=== PATIENT | female | born 1980 | race Hispanic/Latino ===

== ENCOUNTER 2018-07-05 16:16 | Emergency (ER) | payer OTHER ==
[2018-07-05] MEDS ORDERED: NA CHLORIDE 0.9% 1,000 ML ONE (16:52)
--- NOTE | 2018-07-05 17:03 | RAD REPORT ---
EXAM DESCRIPTION: CT - Head Brain Wo Cont - 07/05/2018 4:59 pm CLINICAL HISTORY: Dizziness, syncope COMPARISON: June 2016 TECHNIQUE: Axial 5 mm thick images of the head were obtained without IV contrast. All CT scans are performed using dose optimization technique as appropriate and may include automated exposure control or mA/KV adjustment according to patient size. FINDINGS: No intracranial hemorrhage, mass, edema or shift of mid-line structures. No acute infarcti on changes seen. No abnormal extra-axial fluid collections. Ventricles are normal. Mastoid air cells and visualized portions of the paranasal sinuses are clear. No acute bony findings. No significant change from comparison. IMPRESSION: Negative non-contrast CT head examination.
--- NOTE | 2018-07-05 17:22 | RAD REPORT ---
EXAM DESCRIPTION: RAD - Chest Single View - 07/05/2018 5:16 pm CLINICAL HISTORY: Weakness, dizziness, shortness of breath COMPARISON: June 2016 TECHNIQUE: AP portable chest image was obtained 1714 hours . FINDINGS: Lungs are clear. Heart and vasculature are normal. No measurable pleural effusion and no p neumothorax. No gross bony abnormality seen. No acute aortic findings suspected. IMPRESSION: No acute cardiopulmonary process. No significant interval change.
[2018-07-05 17:24] LABS: Absolute Lymphocytes (CBC) 1.3 K/uL (0.7-4.9); Absolute Monocytes 0.2 K/uL (0.1-1.3); Absolute Neutrophil 2.2 K/uL (1.8-8.0); Eosinophils % 2.8 % (0-4.4); Hematocrit 33.7 % (36.0-45.0); MCH 28.9 pg (27.0-35.0); MCV 84.1 fL (80-100); MPV 10.1 fL (7.6-11.3); Monocytes % 6.4 % (3.3-12.3); RBC Red Blood Cell Count 4.01 M/uL (3.86-4.86)
[2018-07-05 17:33] LABS: Urine Blood 3+ (NEG); Urine Glucose 2+ (NEG); Urine Protein 1+ (NEG)
[2018-07-05 17:46] LABS: Albumin 3.3 g/dL (3.4-5.0); Alkaline Phosphatase 129 U/L (45-117); BUN Blood Urea Nitrogen 24 mg/dL (7-18); Bicarbonate 28 mmol/L (21-32); Bilirubin Direct < 0.1 mg/dL (0-0.2); Bilirubin Total 0.4 mg/dL (0.2-1.0); Glucose Level 265 mg/dL (74-106); Magnesium 1.7 mg/dL (1.8-2.4); Protein, Total 6.5 g/dL (6.4-8.2); Sodium Level 140 mmol/L (136-145)
[2018-07-05 17:58] LABS: ALT/SGPT 365 U/L (12-78); AST/SGOT 361 U/L (15-37)
[2018-07-05] MEDS ORDERED: PROMETHAZINE 25 MG/ML VIAL ONE (19:29)
--- NOTE | 2018-07-05 19:38 | RAD REPORT ---
EXAM DESCRIPTION: CT - Abdomen Pelvis W Contrast - 07/05/2018 7:09 pm CLINICAL HISTORY: Abdominal pain with nausea. And vomiting COMPARISON: February 2017 TECHNIQUE: Computed axial tomography of the abdomen pelvis was obtained. 100 cc Isovue-300 was admin istered intravenously. Oral contrast was not requested which limits evaluation of bowel. All CT scans are performed using dose optimization technique as appropriate and may include automated exposure control or mA/KV adjustment according to patient size. FINDINGS: The liver, spleen, pancreas, adrenal and kidneys appear unremarkable. The gallbladder has been removed. There is no evidence of diverticulitis. An abnormal appendix is not seen. A tiny umbilical hernia contains fat. An adnexal mass is not seen. A 13 millimeter partial calcified splenic arterial aneurysm is seen. It contains small amount of thro mbus. A 12 millimeter additional splenic arterial aneurysm is seen A small hiatal hernia is present IMPRESSION: Two splenic arterial aneurysms No acute abnormality is displayed
--- NOTE | 2018-07-05 19:59 | EDPHYS ---
Physician Documentation [facility] Name: Fabi Diana Age: 37 yrs Sex: Female : 1980 Arrival Date: 07/05/2018 Time: 16:18 Bed 18 Private MD: Chaparro Dean E ED Physician Julien Stafford HPI: 07/05 17:14 This 37 yrs old Female presents to ER via Ambulatory with complaints of jr8 Dizziness, Vomiting. 17:14 The patient presents with dizziness, lightheadedness. Onset: The symptoms/episode jr8 began/occurred acutely, yesterday. Context: occurred at home. Modifying factors: The symptoms are alleviated by nothing, the symptoms are aggravated by standing up, changing position. Associated signs and symptoms: Pertinent positives: nausea. Severity of symptoms: At their worst the symptoms were moderate in the emergency department the symptoms have improved mildly. Patient's baseline: Neuro: alert and fully oriented, Motor: no deficits, Ambulation: walks without assistance, Speech: normal. The patient has not experienced similar symptoms in the past. The patient has not recently seen a physician. 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 - Social history:: Smoking status: Patient/guardian denies using tobacco. - Ebola Screening: : Patient negative for fever greater than or equal to 101.5 degrees Fahrenheit, and additional compatible Ebola Virus Disease symptoms Patient denies exposure to infectious person Patient denies travel to an Ebola-affected area in the 21 days before illness onset No symptoms or risks identified at this time. ROS: 17:14 Eyes: Negative for injury, pain, redness, and discharge, ENT: Negative for injury, jr8 pain, and discharge, Neck: Negative for injury, pain, and swelling, Cardiovascular: Negative for chest pain, palpitations, and edema, Respiratory: Negative for shortness of breath, cough, wheezing, and pleuritic chest pain, Abdomen/GI: Negative for abdominal pain, diarrhea, and constipation. Positive for nausea and vomiting Back: Negative for injury and pain, MS/Extremity: Negative for injury and deformity, Skin: Negative for injury, rash, and discoloration. 17:14 Neuro: Positive for dizziness, Negative for altered mental status, gait disturbance, headache, hearing loss, loss of consciousness, numbness, seizure activity, speech changes, syncope, near syncope, tingling, tinnitus, tremor, visual changes, weakness. Exam: 17:14 Eyes: Pupils equal round and reactive to light, extra-ocular motions intact. Lids and jr8 lashes normal. Conjunctiva and sclera are non-icteric and not injected. Cornea within normal limits. Periorbital areas with no swelling, redness, or edema. ENT: Nares patent. No nasal discharge, no septal abnormalities noted. Tympanic membranes are normal and external auditory canals are clear. Oropharynx with no redness, swelling, or masses, exudates, or evidence of obstruction, uvula midline. Mucous membranes moist. Neck: Trachea midline, no thyromegaly or masses palpated, and no cervical lymphadenopathy. Supple, full range of motion without nuchal rigidity, or vertebral point tenderness. No Meningismus. Cardiovascular: Regular rate and rhythm with a normal S1 and S2. No gallops, murmurs, or rubs. Normal PMI, no JVD. No pulse deficits. Respiratory: Lungs have equal breath sounds bilaterally, clear to auscultation and percussion. No rales, rhonchi or wheezes noted. No increased work of breathing, no retractions or nasal flaring. Abdomen/GI: Soft, non-tender, with normal bowel sounds. No distension or tympany. No guarding or rebound. No evidence of tenderness throughout. Back: No spinal tenderness. No costovertebral tenderness. Full range of motion. Skin: Warm, dry with normal turgor. Normal color with no rashes, no lesions, and no evidence of cellulitis. MS/ Extremity: Pulses equal, no cyanosis. Neurovascular intact. Full, normal range of motion. Neuro: Awake and alert, GCS 15, oriented to person, place, time, and situation. Cranial nerves II-XII grossly intact. Motor strength 5/5 in all extremities. Sensory grossly intact. Cerebellar exam normal. Normal gait. Vital Signs: 16:28 BP 144 / 86; Pulse 91; Resp 20; Temp 98.2; Pulse Ox 98% on R/A; Weight 90.72 kg; Height aj 5 ft. 3 in. (160.02 cm); 17:07 BP 148 / 93; Pulse 90; Resp 18; Pulse Ox 99% on R/A; hj 18:23 BP 143 / 90; Pulse 89; Resp 18; Pulse Ox 98% on R/A; hj 19:05 BP 148 / 87; Pulse 73; Resp 16 S; Pulse Ox 98% on R/A; jd3 20:17 BP 145 / 86; Pulse 90; Resp 18 S; Pulse Ox 100% on R/A; jd3 16:28 Body Mass Index 35.43 (90.72 kg, 160.02 cm) aj MDM: 16:26 Patient medically screened. [facility] 19:55 Data reviewed: vital signs, nurses notes, lab test result(s), radiologic studies, [facility] scan, and as a result, I will discharge patient. Data interpreted: Pulse oximetry: on room air is 98 %. Interpretation: normal. 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 ED course: Patient denies abdominal pain or discomfort. Elevated LFT's noted without bilirubin elevation. Recommended GI f/u for further evaluation of this. Some of her medications can cause liver disease. Suggested she f/u with PCP as well. Patient would follow up. . 19:59 Special discussion: I discussed with the patient the need to follow-up with the [facility] PCP/specialist for the noted incidental finding on X-ray/CT scanning. 07/05 16:38 Order name: Basic Metabolic Panel; Complete Time: 18:19 [facility] 07/05 16:38 Order name: CBC with Diff; Complete Time: 17:47 [facility] 07/05 16:38 Order name: LFT's; Complete Time: 18:19 07/05 16:38 Order name: Magnesium; Complete Time: 18:19 07/05 17:00 Order name: Urine Dipstick--Ancillary (enter results); Complete Time: 17:47 07/05 17:00 Order name: Urine --Ancillary (enter results); Complete Time: 17:47 bd 07/05 16:38 Order name: XRAY Chest (1 view); Complete Time: 17:24 07/05 16:39 Order name: CT Head Brain wo Cont; Complete Time: 17:06 07/05 18:21 Order name: CT Abd/Pelvis - W/Contrast; Complete Time: 19:42 07/05 18:29 Order name: AMMONIA; Complete Time: 19:23 07/05 18:29 Order name: ETOH Level; Complete Time: 19:23 07/05 16:38 Order name: EKG; Complete Time: 16:39 07/05 16:38 Order name: Cardiac monitoring; Complete Time: 16:39 07/05 16:38 Order name: EKG - Nurse/Tech; Complete Time: 16:50 07/05 16:38 Order name: IV Saline Lock; Complete Time: 17:09 07/05 16:38 Order name: Labs collected and sent; Complete Time: 17:09 07/05 16:38 Order name: O2 Per Protocol; Complete Time: 16:39 07/05 16:39 Order name: O2 Sat Monitoring; Complete Time: 16:39 07/05 16:39 Order name: Urine Dipstick-Ancillary (obtain specimen); Complete Time: 17:10 Administered Medications: 17:09 Drug: NS 0.9% 1000 ml Route: IV; Rate: 1000 ml; Site: right antecubital; 19:00 Follow up: Response: No adverse reaction; IV Status: Completed infusion; IV Intake: jd3 1000ml ; 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 19:30 Drug: Promethazine 12.5 mg Route: IVP; Site: right antecubital; jd3 20:18 Follow up: Response: No adverse reaction jd3 Point of Care Testing: Blood Glucose: 16:29 Blood Glucose: 274 mg/dL; hj Ranges: Critical Glucose Levels:Adult <50 mg/dl or >400 mg/dl <40 mg/dl or >180 mg/dl Disposition: 07/05/18 19:59 Discharged to Home. Impression: Dizziness, Elevated liver function tests. - Condition is Stable. - Discharge Instructions: Benign Positional Vertigo, Dizziness. - Prescriptions for Meclizine 25 mg Oral Tablet - take 1 tablet by ORAL route every 8 hours As needed; 30 tablet. Zofran 4 mg Oral Tablet - take 1 tablet by ORAL route every 12 hours As needed; 20 tablet. - Medication Reconciliation Form, Thank You Letter, Antibiotic Education, Prescription Opioid Use, SBAR form form. - Work release form (07/05/18 20:39). ms - Follow up: Chaparro Dean MD; When: 1 - 2 days; Reason: Recheck today's complaints, Continuance of care, Re-evaluation by your physician. Follow up: Jauna Boyd MD; When: 2 - 3 days; Reason: Recheck today's complaints, Continuance of care, Re-evaluation by your physician. - Problem is new. - Symptoms have improved. Addendum: 07/07/2018 07:06 Co-signature as Attending Physician, Julien Stafford MD. r n Signatures: Dispatcher [employer] Areli Bailey RN RN aj Nieto, Roman, MD MD rn Roszak, Josh, PA PA jr8 Brian Mcmahon RN RN hj Davies, Jonathon, RN RN jd3 Solis, Maria ms Corrections: (The following items were deleted from the chart) 07/05 18:32 18:21 Abdomen Limited+US.RAD.BRZ ordered. [facility] 19:59 19:59 07/05/2018 19:59 Discharged to Home. Impression: Dizziness; Elvated liver jr8 function tests. Condition is Stable. Forms are SBAR form, Medication Reconciliation Form, Thank You Letter, Antibiotic Education, Prescription Opioid Use. Follow up: Chaparro Dean; When: 1 - 2 days; Reason: Recheck today's complaints, Continuance of care, Re-evaluation by your physician. Follow up: Juana Boyd; When: 2 - 3 days; Reason: Recheck today's complaints, Continuance of care, Re-evaluation by your physician. Problem is new. Symptoms have improved. jr8 20:19 19:59 07/05/2018 19:59 Discharged to Home. Impression: Dizziness; Elevated liver jd3 function tests. Condition is Stable. Forms are SBAR form, Medication Reconciliation Form, Thank You Letter, Antibiotic Education, Prescription Opioid Use. Follow up: Chaparro Dean; When: 1 - 2 days; Reason: Recheck today's complaints, Continuance of care, Re-evaluation by your physician. Follow up: Juana Boyd; When: 2 - 3 days; Reason: Recheck today's complaints, Continuance of care, Re-evaluation by your physician. Problem is new. Symptoms have improved. jr8
--- NOTE | 2018-07-05 19:59 | ER ---
Nurse's Notes [facility] Name: Fabi Diana Age: 37 yrs Sex: Female : 1980 Arrival Date: 07/05/2018 Time: 16:18 Bed 18 Private MD: Chaparro Dean E Diagnosis: Dizziness;Elevated liver function tests Presentation: 07/05 16:24 Presenting complaint: Patient states: Dizziness and lightheadedness with N/V since last aj night. Ambulated wit steady gait, denies pain. Transition of care: patient was not received from another setting of care. Onset of symptoms was July 05, 2018. Risk Assessment: Do you want to hurt yourself or someone else? Patient reports no desire to harm self or others. Initial Sepsis Screen: Does the patient meet any 2 criteria? No. Patient's initial sepsis screen is negative. Does the patient have a suspected source of infection? No. Patient's initial sepsis screen is negative. Care prior to arrival: None. 16:24 Method Of Arrival: Ambulatory 16:24 Acuity: BAYLEE 3 aj Triage Assessment: 16:26 General: Appears in no apparent distress. comfortable, Behavior is calm, cooperative. aj Pain: Denies pain. Neuro: Level of Consciousness is awake, alert, obeys commands, Oriented to person, place, time, situation, Appropriate for age Reports dizziness. Respiratory: Airway is patent Respiratory effort is even, unlabored, Respiratory pattern is regular, symmetrical. GI: Reports nausea, vomiting. Derm: Skin is intact, is healthy with good turgor, Skin is flushed. 16:27 General: Appears in no apparent distress. uncomfortable, Behavior is calm, cooperative, hj appropriate for age. Pain: Denies pain. GI: Reports nausea, vomiting. 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 - Social history:: Smoking status: Patient/guardian denies using tobacco. - Ebola Screening: : Patient negative for fever greater than or equal to 101.5 degrees Fahrenheit, and additional compatible Ebola Virus Disease symptoms Patient denies exposure to infectious person Patient denies travel to an Ebola-affected area in the 21 days before illness onset No symptoms or risks identified at this time. Screenin:27 Abuse screen: Denies threats or abuse. Denies injuries from another. Nutritional hj screening: No deficits noted. Tuberculosis screening: No symptoms or risk factors identified. Fall Risk None identified. Assessment: 16:30 Reassessment: see triage for assessment;. hj 17:07 Reassessment: Patient and/or family updated on plan of care and expected duration. Pain hj level reassessed. Patient is alert, oriented x 3, equal unlabored respirations, skin warm/dry/pink. awaiting results and POC;. 18:23 Reassessment: Patient and/or family updated on plan of care and expected duration. Pain hj level reassessed. Patient is alert, oriented x 3, equal unlabored respirations, skin warm/dry/pink. awaiting POC;l. 19:04 Reassessment: Patient appears in no apparent distress at this time. No changes from jd3 previously documented assessment. Patient and/or family updated on plan of care and expected duration. Pain level reassessed. Patient is alert, oriented x 3, equal unlabored respirations, skin warm/dry/pink. Neuro: Reports dizziness. GI: Reports nausea. 20:16 Reassessment: Patient appears in no apparent distress at this time. Patient and/or jd3 family updated on plan of care and expected duration. Pain level reassessed. Patient is alert, oriented x 3, equal unlabored respirations, skin warm/dry/pink. Vital Signs: 16:28 BP 144 / 86; Pulse 91; Resp 20; Temp 98.2; Pulse Ox 98% on R/A; Weight 90.72 kg; Height aj 5 ft. 3 in. (160.02 cm); 17:07 BP 148 / 93; Pulse 90; Resp 18; Pulse Ox 99% on R/A; hj 18:23 BP 143 / 90; Pulse 89; Resp 18; Pulse Ox 98% on R/A; hj 19:05 BP 148 / 87; Pulse 73; Resp 16 S; Pulse Ox 98% on R/A; jd3 20:17 BP 145 / 86; Pulse 90; Resp 18 S; Pulse Ox 100% on R/A; jd3 16:28 Body Mass Index 35.43 (90.72 kg, 160.02 cm) ED Course: 16:18 Patient arrived in ED. mr 16:19 Chaparro Dean MD is Private Physician. mr 16:25 Brian Mcmahon, JEAN PAUL is Primary Nurse. hj 16:25 Triage completed. aj 16:26 Tobias Schmitt PA is PHCP. jr8 16:26 Julien Stafford MD is Attending Physician. jr8 16:27 Arm band placed on right wrist. hj 16:27 Patient has correct armband on for positive identification. Placed in gown. Bed in low hj position. Call light in reach. Side rails up X 1. Adult w/ patient. 16:[address] 2 16:[address] completed. Patient tolerated procedure well. Patient moved back from CT. vm2 16:59 CT Head Brain wo Cont In Process Unspecified. EDMS 17:10 Initial lab(s) drawn, by ED staff, sent to lab. Urine collected:. Inserted saline lock: hj 20 gauge in right antecubital area, using aseptic technique. ,using aseptic technique. Kathrin Ng RN Blood collected. 17:12 EKG done, by geotechnical engineer. 3 17:12 EKG done, by geotechnical engineer. reviewed by Tobias JUAREZ. 3 17:14 X-ray completed. Portable x-ray completed in exam room. Patient tolerated procedure ml well. 17:16 XRAY Chest (1 view) In Process Unspecified. EDMS 18:[address] via wheelchair. vr 18:39 ETOH Level Sent. hj 18:39 AMMONIA Sent. hj 18:43 ETOH Level Sent. hj 19:03 Report given to JEAN PAUL denise. hj 19:04 Primary Nurse role handed off by Brian Mcmahon, JEAN PAUL jd3 19:04 Robert Reynolds RN is Primary Nurse. jd3 19:09 CT completed. Patient moved back from CT. nj 19:10 CT Abd/Pelvis - W/Contrast In Process Unspecified. EDMS 19:58 Chaparro Dean MD is Referral Physician. jr8 19:58 Juana Boyd MD is Referral Physician. jr8 20:16 No provider procedures requiring assistance completed. IV discontinued, intact, jd3 bleeding controlled, No redness/swelling at site. Pressure dressing applied. Administered Medications: 17:09 Drug: NS 0.9% 1000 ml Route: IV; Rate: 1000 ml; Site: right antecubital; 19:00 Follow up: Response: No adverse reaction; IV Status: Completed infusion; IV Intake: jd3 1000ml ; infussion was complete upon car shifter 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 19:30 Drug: Promethazine 12.5 mg Route: IVP; Site: right antecubital; jd3 20:18 Follow up: Response: No adverse reaction jd3 Point of Care Testing: Blood Glucose: 16:29 Blood Glucose: 274 mg/dL; Ranges: Intake: 19:00 IV: 1000ml; Total: 1000ml. jd3 Outcome: 19:59 Discharge ordered by MD. jr8 20:16 Discharged to home ambulatory, with family. jd3 20:16 Condition: stable 20:16 Discharge instructions given to patient, family, Instructed on discharge instructions, follow up and referral plans. medication usage, Demonstrated understanding of instructions, follow-up care, medications, Prescriptions given X 2. 20:19 Patient left the ED. jd3 Signatures: Dispatcher [employer] EDMS Areli Jain, RN Mali Rodriguez, Luci Jean Josh, PA PA jr8 Brian Mcmahon RN RN hj Jordan, Nathan nj McGuire, Victoria [facility] Robert Reynolds RN RN jd3 Montes, Shakira 3 Corrections: (The following items were deleted from the chart) 16:28 16:24 Presenting complaint: Patient states: Dizziness and "lighthededness" since last aj night. Ambulated wit steady gait, denies pain aj
[2018-07-05 20:35] VITALS: TEMP 98.2
[2018-07-05 20:39] VITALS: BP 145/86; O2SAT 100
--- NOTE | 2018-07-05 21:21 | EKG ---
Test Date: 2018-07-05 Test Time: 16:49:47 Siphoner: PARTHA MEASUREMENT RESULTS: Intervals: Rate: 84 SD: 138 QRSD: 88 QT: 364 QTc: 430 [place]: P: 17 SD: 138 QRS: 7 T: 6 INTERPRETIVE STATEMENTS: Normal sinus rhythm Normal ECG Compared to ECG 07/21/2016 12:52:08 Sinus tachycardia no longer present T-wave abnormality no longer present Possible ischemia no longer present Electronically Signed On 07-05-18 21:20:07 CDT by Teodoro Wiggins
== END 2018-07-05 20:19 | disposition home or self-care (01) ==
LOC: ER 16:16
DX: R42 Dizziness and giddiness (principal); R79.89 Other specified abnormal findings of blood chemistry; E11.9 Type 2 diabetes mellitus without complications; Z79.84 Long term (current) use of oral hypoglycemic drugs; I10 Essential (primary) hypertension
CPT/HCPCS: 36415; 70450; 71045; 74177; 80048; 80076; 80320; 81003; 81025; 82140; 82962; 83735; 85025; 93005; 96361; 96374; 99285; J2550; J7030; Q9967

== ENCOUNTER 2019-06-05 23:29 | Emergency (ER) | payer OTHER, SELFPAY ==
[2019-06-06 00:20] LABS: Albumin 3.5 g/dL (3.4-5.0); Bilirubin Total 0.2 mg/dL (0.2-1.0); Potassium 3.8 mmol/L (3.5-5.1); Protein, Total 7.4 g/dL (6.4-8.2)
--- NOTE | 2019-06-06 00:34 | ER ---
Nurse's Notes [facility] Name: Fabi Diana Age: 38 yrs Sex: Female : 1980 Arrival Date: 06/05/2019 Time: 23:31 Bed 15 Private MD: Diagnosis: Dental caries Presentation: 06/05 23:32 Presenting complaint: EMS states: EMS reports pt is complaining of abdominal pain, pt ea reports she took 13 to 14 ibuprofen between 1600 and 1900 and then 8 ibuprofen at 1955. Pt reports she was trying to control the toothache. Reports she started vomiting about an hour ago and started having upper abdominal pain. Transition of care: patient was not received from another setting of care. Onset of symptoms was June 05, 2019. Risk Assessment: Do you want to hurt yourself or someone else? Patient reports no desire to harm self or others. Initial Sepsis Screen: Does the patient meet any 2 criteria? No. Patient's initial sepsis screen is negative. Does the patient have a suspected source of infection? No. Patient's initial sepsis screen is negative. Care prior to arrival: None. 23:32 Method Of Arrival: EMS: [facility] ea 23:32 Acuity: BAYLEE 3 ea Triage Assessment: 23:41 General: Appears uncomfortable, Behavior is calm, cooperative, appropriate for age. ea Pain: Complains of pain in left upper quadrant. EENT: Reports pain in mouth. Historical: - Allergies: 23:40 NKDA; ea - Home Meds: 23:40 metformin 500 mg Oral tr24 1 tab once daily [Active]; lisinopril-hydrochlorothiazide ea 10-12.5 mg Oral tab 1 tab once daily [Active]; glipizide 10 mg Oral tab 1 tab once daily [Active]; gabapentin Oral [Active]; - PMHx: 23:40 Hypertension; Diabetes - NIDDM; ea - PSHx: 23:40 Tubal ligation; Cholecystectomy; ea - Immunization history:: Adult Immunizations up to date. - Social history:: Smoking status: Patient/guardian denies using tobacco, Patient/guardian denies using alcohol, street drugs, The patient lives with family. - Ebola Screening: : No symptoms or risks identified at this time. - Family history:: not pertinent. Screenin:38 Abuse screen: Denies threats or abuse. Nutritional screening: No deficits noted. ea Tuberculosis screening: No symptoms or risk factors identified. Fall Risk None identified. Assessment: 23:42 General: Appears uncomfortable, Behavior is appropriate for age. Pain: Complains of ea pain in mouth and left upper quadrant. Neuro: Level of Consciousness is awake, alert, obeys commands, Oriented to person, place, time, situation. Cardiovascular: Patient's skin is warm and dry. Respiratory: Airway is patent Respiratory effort is even, unlabored, Respiratory pattern is regular, symmetrical. GI: Reports upper abdominal pain. Derm: Skin is pink, warm \T\ dry. 23:50 Reassessment: Poison control contacted. Poison control reports mild GI upset is to be ea expected, symptomatic supportive care can be given such as Zofran and fluids if needed, reports pt may have mild toxicity. 06/06 00:15 Reassessment: Patient and/or family updated on plan of care and expected duration. Pain ea level reassessed. Patient is alert, oriented x 3, equal unlabored respirations, skin warm/dry/pink. 00:49 Reassessment: Patient and/or family updated on plan of care and expected duration. Pain ea level reassessed. Patient is alert, oriented x 3, equal unlabored respirations, skin warm/dry/pink. Pt complaining of tooth pain, provider notified, medication administered, pt tolerated well. Discharge instruction given to patient, verbalized the understanding of instruction. Pt left ED with family, verbalized the understanding of isntruction. Vital Signs: 06/05 23:37 BP 171 / 105; Pulse 98; Resp 18; Temp 98.8; Pulse Ox 99% on R/A; Weight 81.65 kg; ea Height 5 ft. 5 in. (165.10 cm); 06/06 00:45 BP 160 / 90; Pulse 97; Resp 18; Temp 98.7; Pulse Ox 100% ; ea 06/05 23:37 Body Mass Index 29.95 (81.65 kg, 165.10 cm) ea ED Course: 06/05 23:31 Patient arrived in ED. am2 23:32 Anika Pollock RN is Primary Nurse. ea 23:33 Sonia Contreras MD is Attending Physician. ma2 23:36 Triage completed. ea 23:37 Arm band placed on right wrist. Patient placed in an exam room, on a stretcher, on ea pulse oximetry. 23:38 Patient has correct armband on for positive identification. Placed in gown. Bed in low ea position. Call light in reach. Side rails up X2. Adult w/ patient. 23:41 Inserted saline lock: 20 gauge in right antecubital area, using aseptic technique. jb5 Blood collected. 07 00:51 No provider procedures requiring assistance completed. IV discontinued, intact, ea bleeding controlled, No redness/swelling at site. Pressure dressing applied. Administered Medications: 00:46 Drug: [place] (7.5 mg-325 mg) 1 tabs Route: PO; ea 00:47 Follow up: Response: Medication administered at discharge. ea Outcome: 00:34 Discharge ordered by . ma2 00:51 Discharged to home ambulatory, with family. ea 00:51 Condition: stable 00:51 Discharge instructions given to patient, Instructed on discharge instructions, follow up and referral plans. medication usage, Demonstrated understanding of instructions, follow-up care, medications, Prescriptions given X 2. 00:53 Patient left the ED. ea Signatures: Angela Morillo jb5 Areli Alvarez am2 Anika Pollock RN RN ea Alzahri, Mohammad, MD MD ma2 Corrections: (The following items were deleted from the chart) 00:39 07 23:50 Reassessment: Poison control contacted. Poison control reports mild GI ea upset is to be expected, symptomatic supportive care can be give such as zofran and fluids, reports pt may have mild toxicity. ea
--- NOTE | 2019-06-06 00:34 | EDPHYS ---
Physician Documentation [facility] Name: Fabi Diana Age: 38 yrs Sex: Female : 1980 Arrival Date: 06/05/2019 Time: 23:31 Bed 15 Private MD: ED Physician Sonia Contreras HPI: 06/06 00:32 This 38 yrs old Female presents to ER via EMS with complaints of Toothache, ma2 Nausea. 00:32 Onset: The symptoms/episode began/occurred gradually, 1 day(s) ago. Duration: The ma2 symptoms are continuous. Associated signs and symptoms: Pertinent negatives: dysphagia, nausea, redness in area. Severity of symptoms: At their worst the symptoms were mild, in the emergency department the symptoms are unchanged. The patient has not experienced similar symptoms in the past. took 5 motrin 200 mg each . Historical: - Allergies: 06/05 23:40 NKDA; ea - Home Meds: 23:40 metformin 500 mg Oral tr24 1 tab once daily [Active]; lisinopril-hydrochlorothiazide ea 10-12.5 mg Oral tab 1 tab once daily [Active]; glipizide 10 mg Oral tab 1 tab once daily [Active]; gabapentin Oral [Active]; - PMHx: 23:40 Hypertension; Diabetes - NIDDM; ea - PSHx: 23:40 Tubal ligation; Cholecystectomy; ea - Immunization history:: Adult Immunizations up to date. - Social history:: Smoking status: Patient/guardian denies using tobacco, Patient/guardian denies using alcohol, street drugs, The patient lives with family. - Ebola Screening: : No symptoms or risks identified at this time. - Family history:: not pertinent. ROS: 06/06 00:32 Constitutional: Negative for fever, chills, and weight loss. ma2 All other systems are negative. Exam: 00:32 Constitutional: This is a well developed, well nourished patient who is awake, alert, ma2 and in no acute distress. Head/Face: Normocephalic, atraumatic. Eyes: Pupils equal round and reactive to light, extra-ocular motions intact. Lids and lashes normal. Conjunctiva and sclera are non-icteric and not injected. Cornea within normal limits. Periorbital areas with no swelling, redness, or edema. ENT: Nares patent. No nasal discharge, no septal abnormalities noted. Tympanic membranes are normal and external auditory canals are clear. Oropharynx with no redness, swelling, or masses, exudates, or evidence of obstruction, uvula midline. Mucous membranes moist. Neck: Trachea midline, no thyromegaly or masses palpated, and no cervical lymphadenopathy. Supple, full range of motion without nuchal rigidity, or vertebral point tenderness. No Meningismus. Chest/axilla: Normal chest wall appearance and motion. Nontender with no deformity. No lesions are appreciated. Cardiovascular: Regular rate and rhythm with a normal S1 and S2. No gallops, murmurs, or rubs. Normal PMI, no JVD. No pulse deficits. Respiratory: Lungs have equal breath sounds bilaterally, clear to auscultation and percussion. No rales, rhonchi or wheezes noted. No increased work of breathing, no retractions or nasal flaring. Abdomen/GI: Soft, non-tender, with normal bowel sounds. No distension or tympany. No guarding or rebound. No evidence of tenderness throughout. Back: No spinal tenderness. No costovertebral tenderness. Full range of motion. MS/ Extremity: Pulses equal, no cyanosis. Neurovascular intact. Full, normal range of motion. Neuro: Awake and alert, GCS 15, oriented to person, place, time, and situation. Cranial nerves II-XII grossly intact. Motor strength 5/5 in all extremities. Sensory grossly intact. Cerebellar exam normal. Normal gait. Vital Signs: 06/05 23:37 BP 171 / 105; Pulse 98; Resp 18; Temp 98.8; Pulse Ox 99% on R/A; Weight 81.65 kg; ea Height 5 ft. 5 in. (165.10 cm); 06/06 00:45 BP 160 / 90; Pulse 97; Resp 18; Temp 98.7; Pulse Ox 100% ; ea 06/05 23:37 Body Mass Index 29.95 (81.65 kg, 165.10 cm) ea MDM: 06/05 23:33 Patient medically screened. ma2 06/06 00:32 Differential diagnosis: dental caries, gingivitis, dental abscess, aphthous ulcers. ma2 Data reviewed: vital signs, nurses notes. Counseling: I had a detailed discussion with the patient and/or guardian regarding: the historical points, exam findings, and any diagnostic results supporting the discharge/admit diagnosis, the presence of at least one elevated blood pressure reading (>120/80) during this emergency department visit, the need for outpatient follow up. Response to treatment: the patient's symptoms have markedly improved after treatment. 06/05 23:47 Order name: CMP; Complete Time: 00:32 ma2 Administered Medications: 00:46 Drug: [place] (7.5 mg-325 mg) 1 tabs Route: PO; ea 00:47 Follow up: Response: Medication administered at discharge. ea Disposition: 06/06/19 00:34 Discharged to Home. Impression: Dental caries. - Condition is Stable. - Discharge Instructions: Dental Pain. - Prescriptions for Augmentin 875- 125 mg Oral Tablet - take 1 tablet by ORAL route every 12 hours for 10 days; 20 tablet. Zofran 4 mg Oral Tablet - take 1 tablet by ORAL route every 12 hours As needed; 20 tablet. - Medication Reconciliation Form, Thank You Letter, Antibiotic Education, Prescription Opioid Use form. - Follow up: Private Physician; When: Tomorrow; Reason: Continuance of care. Signatures: Dispatcher [employer] Anika Freeman RN RN ea Alzahri, Mohammad, MD MD ma2 Corrections: (The following items were deleted from the chart) 00:53 00:34 06/06/2019 00:34 Discharged to Home. Impression: Dental caries. Condition is ea Stable. Prescriptions for Augmentin 875-125 mg Oral Tablet - take 1 tablet by ORAL route every 12 hours for 10 days; 20 tablet, Zofran 4 mg Oral Tablet - take 1 tablet by ORAL route every 12 hours As needed; 20 tablet. and Forms are Medication Reconciliation Form, Thank You Letter, Antibiotic Education, Prescription Opioid Use. Follow up: Private Physician; When: Tomorrow; Reason: Continuance of care. ma2
[2019-06-06] MEDS ORDERED: HYDROCODONE/APAP 7.5/325 MG TAB ONE (00:54)
[2019-06-06 01:09] VITALS: BP 160/90; TEMP 98.7; O2SAT 100
== END 2019-06-06 00:53 | disposition home or self-care (01) ==
LOC: ER 23:29
DX: K02.9 Dental caries, unspecified (principal); I10 Essential (primary) hypertension; E11.9 Type 2 diabetes mellitus without complications
CPT/HCPCS: 36415; 80053; 99284

== ENCOUNTER 2019-07-15 19:32 | Emergency (ER) | payer SELFPAY ==
--- NOTE | 2019-07-15 19:58 | ER ---
Nurse's Notes [facility] Name: Fabi Diana Age: 38 yrs Sex: Female : 1980 Arrival Date: 07/15/2019 Time: 19:35 Bed 11 Private MD: Diagnosis: Cellulitis of right lower limb Presentation: 07/15 19:40 Presenting complaint: Patient states: right foot pain since noon yesterday. pt with ak1 redness and pain to arch of right foot. Transition of care: patient was not received from another setting of care. Onset of symptoms is unknown. Risk Assessment: Do you want to hurt yourself or someone else? Patient reports no desire to harm self or others. Initial Sepsis Screen: Does the patient meet any 2 criteria? No. Patient's initial sepsis screen is negative. Does the patient have a suspected source of infection? No. Patient's initial sepsis screen is negative. Care prior to arrival: None. 19:40 Method Of Arrival: Ambulatory ak1 19:40 Acuity: BAYLEE 4 ak1 Triage Assessment: 19:41 General: Appears in no apparent distress. Behavior is calm, cooperative. 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 - Social history:: Smoking status: Patient/guardian denies using tobacco. - Ebola Screening: : No symptoms or risks identified at this time. Screenin:42 Abuse screen: Denies threats or abuse. Denies injuries from another. Nutritional ak1 screening: No deficits noted. Tuberculosis screening: No symptoms or risk factors identified. Fall Risk None identified. Assessment: 19:51 General: Appears in no apparent distress. Behavior is appropriate for age. Pain: lp1 Complains of pain in instep of right foot. Neuro: Level of Consciousness is awake, alert, obeys commands. Cardiovascular: Patient's skin is warm and dry. Respiratory: No deficits noted. GI: No deficits noted. : No deficits noted. EENT: No deficits noted. Derm: redness noted to instep of right foot; hot to touch, tender on palpation. Musculoskeletal: Circulation, motion, and sensation intact. Vital Signs: 19:39 BP 119 / 80; Pulse 100; Resp 20; Temp 97.4; Pulse Ox 98% on R/A; Weight 97.52 kg (R); ak1 Height 5 ft. 3 in. (160.02 cm) (R); Pain 8/10; 19:39 Body Mass Index 38.09 (97.52 kg, 160.02 cm) ak1 ED Course: 19:35 Patient arrived in ED. ag3 19:39 Arm band placed on Patient placed in an exam room, on a stretcher, Patient notified of ak1 wait time. 19:41 Triage completed. ak1 19:42 Patient has correct armband on for positive identification. Bed in low position. Call ak1 light in reach. Side rails up X 1. 19:45 Cyril Cartwright MD is Attending Physician. 19:45 Shazia Kincaid RN is Primary Nurse. lp1 19:52 No provider procedures requiring assistance completed. Patient did not have IV access lp1 during this emergency room visit. Administered Medications: 20:08 Drug: LevaQUIN 500 mg Route: PO; lp1 20:08 Follow up: Response: Medication administered at discharge. lp1 Outcome: 19:58 Discharge ordered by . 20:08 Discharged to home ambulatory. lp1 20:08 Condition: good 20:08 Discharge instructions given to patient, Instructed on discharge instructions, follow up and referral plans. medication usage, Demonstrated understanding of instructions, follow-up care, medications, Prescriptions given X 1. 20:09 Patient left the ED. lp1 Signatures: Shazia Kincaid RN RN 1 Alem Blankenship RN RN ak Cyril Cartwright MD MD Vivi Ta 3
--- NOTE | 2019-07-15 19:59 | EDPHYS ---
Physician Documentation [facility] Name: Fabi Diana Age: 38 yrs Sex: Female : 1980 Arrival Date: 07/15/2019 Time: 19:35 Bed 11 Private MD: ED Physician Cyril Cartwright HPI: 07/15 19:53 This 38 yrs old Female presents to ER via Ambulatory with complaints of MOI gs ON BOTTOM OF FOOT. 19:53 The patient presents with cellulitis of the arch of right foot. Description: The gs affected area is small, confluent, warm, tender. Onset: The symptoms/episode began/occurred yesterday. Possible cause(s): unknown. Associated signs and symptoms: Pertinent negatives: fever. Severity of symptoms: in the emergency department the symptoms are unchanged. The patient has not experienced similar symptoms in the past. 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 - Social history:: Smoking status: Patient/guardian denies using tobacco. - Ebola Screening: : No symptoms or risks identified at this time. ROS: 19:53 All other systems are negative. gs Exam: 19:53 Head/Face: Normocephalic, atraumatic. Eyes: Pupils equal round and reactive to light, gs extra-ocular motions intact. Lids and lashes normal. Conjunctiva and sclera are non-icteric and not injected. Cornea within normal limits. Periorbital areas with no swelling, redness, or edema. ENT: Nares patent. No nasal discharge, no septal abnormalities noted. Tympanic membranes are normal and external auditory canals are clear. Oropharynx with no redness, swelling, or masses, exudates, or evidence of obstruction, uvula midline. Mucous membranes moist. Neck: Trachea midline, no thyromegaly or masses palpated, and no cervical lymphadenopathy. Supple, full range of motion without nuchal rigidity, or vertebral point tenderness. No Meningismus. Chest/axilla: Normal chest wall appearance and motion. Nontender with no deformity. No lesions are appreciated. Cardiovascular: Regular rate and rhythm with a normal S1 and S2. No gallops, murmurs, or rubs. Normal PMI, no JVD. No pulse deficits. Respiratory: Lungs have equal breath sounds bilaterally, clear to auscultation and percussion. No rales, rhonchi or wheezes noted. No increased work of breathing, no retractions or nasal flaring. Abdomen/GI: Soft, non-tender, with normal bowel sounds. No distension or tympany. No guarding or rebound. No evidence of tenderness throughout. Back: No spinal tenderness. No costovertebral tenderness. Full range of motion. Neuro: Awake and alert, GCS 15, oriented to person, place, time, and situation. Cranial nerves II-XII grossly intact. Motor strength 5/5 in all extremities. Sensory grossly intact. Cerebellar exam normal. Normal gait. 19:53 Constitutional: The patient appears alert, awake. 19:53 Musculoskeletal/extremity: ROM: no acute changes, Circulation is intact in all extremities. 19:53 Skin: cellulitis, that is mild, on the arch of right foot, 2x3 cm. Vital Signs: 19:39 BP 119 / 80; Pulse 100; Resp 20; Temp 97.4; Pulse Ox 98% on R/A; Weight 97.52 kg (R); ak1 Height 5 ft. 3 in. (160.02 cm) (R); Pain 8/10; 19:39 Body Mass Index 38.09 (97.52 kg, 160.02 cm) ak1 MDM: 19:51 Patient medically screened. 19:53 Data reviewed: vital signs, nurses notes. Counseling: I had a detailed discussion with gs the patient and/or guardian regarding: the historical points, exam findings, and any diagnostic results supporting the discharge/admit diagnosis, the need for outpatient follow up. Response to treatment: There is no appreciated change of the patient's symptoms at this time. Administered Medications: 20:08 Drug: LevaQUIN 500 mg Route: PO; lp1 20:08 Follow up: Response: Medication administered at discharge. lp1 Disposition: 07/15/19 19:58 Discharged to Home. Impression: Cellulitis of right lower limb. - Condition is Stable. - Discharge Instructions: Cellulitis, Adult. - Prescriptions for Levaquin 500 mg Oral Tablet - take 1 tablet by ORAL route once daily for 7 days; 7 tablet. - Medication Reconciliation Form, Thank You Letter, Antibiotic Education, Prescription Opioid Use form. - Follow up: Private Physician; When: 2 - 3 days; Reason: Re-evaluation by your physician. Signatures: Shazia Kincaid RN RN lp1 Alem Blankenship RN RN ak1 Cyril Cartwright MD MD Corrections: (The following items were deleted from the chart) 20:09 19:58 07/15/2019 19:58 Discharged to Home. Impression: Cellulitis of right lower limb. lp1 Condition is Stable. Forms are Medication Reconciliation Form, Thank You Letter, Antibiotic Education, Prescription Opioid Use. Follow up: Private Physician; When: 2 - 3 days; Reason: Re-evaluation by your physician. gs
[2019-07-15] MEDS ORDERED: levoFLOXacin 250 MG TAB ONE (20:03)
[2019-07-15 20:21] VITALS: BP 119/80; TEMP 97.4; O2SAT 98
== END 2019-07-15 20:09 | disposition home or self-care (01) ==
LOC: ER 19:32
DX: L03.115 Cellulitis of right lower limb (principal); I10 Essential (primary) hypertension; E11.9 Type 2 diabetes mellitus without complications
CPT/HCPCS: 99283

== ENCOUNTER 2020-03-15 18:43 | Emergency (ER) | payer SELFPAY ==
[2020-03-15] MEDS ORDERED: IBUPROFEN 400 MG TAB ONE (19:06)
[2020-03-15] MEDS ORDERED: NA CHLORIDE 0.9% 1,000 ML ONE (19:36)
[2020-03-15 19:50] LABS: Absolute Lymphocytes (CBC) 1.9 K/uL (0.7-4.9); Basophils % 1.1 % (0-1.3); Hematocrit 34.1 % (36.0-45.0); Lymphocytes % 29.9 % (15.3-44.8); MPV 10.2 fL (7.6-11.3)
[2020-03-15 20:23] LABS: Potassium 3.8 mmol/L (3.5-5.1); Sodium Level 133 mmol/L (136-145)
[2020-03-15 20:24] LABS: ALT/SGPT 23 U/L (12-78); AST/SGOT 10 U/L (15-37); Alkaline Phosphatase 230 U/L (45-117); BUN Blood Urea Nitrogen 16 mg/dL (7-18); Bicarbonate 26 mmol/L (21-32)
[2020-03-15 20:25] LABS: Albumin 3.3 g/dL (3.4-5.0); Bilirubin Direct < 0.1 mg/dL (0-0.2); Bilirubin Total 0.2 mg/dL (0.2-1.0); Protein, Total 7.3 g/dL (6.4-8.2)
[2020-03-15 20:28] LABS: Glucose Level 461 mg/dL (74-106)
[2020-03-15 20:47] LABS: Lipase 90 U/L (73-393)
--- NOTE | 2020-03-15 23:19 | ER ---
Nurse's Notes [facility] Name: Fabi Diana Age: 39 yrs Sex: Female : 1980 Arrival Date: 03/15/2020 Time: 18:46 Bed 17 Private MD: Diagnosis: Hyperglycemia, unspecified Presentation: 03/15 19:05 Chief complaint: Patient states: is diabetic, but has not been taking her tresiba since iw , states there is no good reason why she doesn't take it she just forgets or is too lazy to take it. pt has been tired and sleepy today, took 3 doses of lyrica 75 mg last night because she ran out of her gabapentin and cymbalta last week. Coronavirus screen: Proceed with normal triage. Patient denies a cough. Patient denies shortness of breath or difficulty breathing. Patient denies measured and/or subjective temperature greater than 100.4F prior to today's visit. Patient denies travel on a cruise ship or to a country the [facility] currently lists as an affected area. Patient denies contact with known and/or suspected case of COVID-19. Ebola Screen: Patient negative for fever greater than or equal to 101.5 degrees Fahrenheit, and additional compatible Ebola Virus Disease symptoms Patient denies exposure to infectious person. Patient denies travel to an Ebola-affected area in the 21 days before illness onset. No symptoms or risks identified at this time. Initial Sepsis Screen: Does the patient meet any 2 criteria? No. Patient's initial sepsis screen is negative. Does the patient have a suspected source of infection? No. Patient's initial sepsis screen is negative. Risk Assessment: Do you want to hurt yourself or someone else? Patient reports no desire to harm self or others. Onset of symptoms was March 15, 2020. 19:05 Method Of Arrival: Ambulatory iw 19:05 Acuity: BAYLEE 3 iw Historical: - Allergies: 19:12 NKDA; iw - Home Meds: 19:12 metformin 500 mg Oral tr24 1 tab once daily [Active]; lisinopril-hydrochlorothiazide iw 10-12.5 mg Oral tab 1 tab once daily [Active]; glipizide 10 mg Oral tab 1 tab once daily [Active]; gabapentin Oral [Active]; - PMHx: 19:12 Diabetes - NIDDM; Hypertension; iw - PSHx: 19:12 Tubal ligation; Cholecystectomy; iw - Immunization history:: Adult Immunizations up to date. - Social history:: Smoking status: Patient denies any tobacco usage or history of. Screenin:35 Abuse screen: Denies threats or abuse. Denies injuries from another. Nutritional rv screening: No deficits noted. Tuberculosis screening: No symptoms or risk factors identified. Fall Risk None identified. Assessment: 19:35 General: Appears in no apparent distress. ill, Behavior is calm, cooperative. Pain: rv Denies pain. Neuro: Level of Consciousness is awake, alert, obeys commands, Oriented to person, place, time, situation. Cardiovascular: Patient's skin is warm and dry. Respiratory: Airway is patent Respiratory effort is even, unlabored. Derm: Skin is intact. 20:00 Reassessment: Patient appears in no apparent distress at this time. Patient and/or ls4 family updated on plan of care and expected duration. Pain level reassessed. Patient is alert, oriented x 3, equal unlabored respirations, skin warm/dry/pink. 21:00 Reassessment: Patient appears in no apparent distress at this time. Patient and/or ls4 family updated on plan of care and expected duration. Pain level reassessed. Patient is alert, oriented x 3, equal unlabored respirations, skin warm/dry/pink. 22:02 Reassessment: Patient appears in no apparent distress at this time. Patient and/or ls4 family updated on plan of care and expected duration. Pain level reassessed. Patient is alert, oriented x 3, equal unlabored respirations, skin warm/dry/pink. 23:36 Reassessment: Patient appears in no apparent distress at this time. Patient and/or ls4 family updated on plan of care and expected duration. Pain level reassessed. Patient is alert, oriented x 3, equal unlabored respirations, skin warm/dry/pink. Vital Signs: 19:05 Pulse 96; Resp 16 S; Temp 98.2; Pulse Ox 100% on R/A; Weight 95.25 kg; Height 5 ft. 3 iw in. (160.02 cm); Pain 0/10; 20:28 BP 144 / 92; Pulse 92; Resp 14; Pulse Ox 99% ; Pain 3/10; ls4 21:30 BP 150 / 88; Pulse 89; Resp 14; Pulse Ox 99% ; Pain 3/10; ls4 22:30 BP 144 / 96; Pulse 79; Resp 14; Temp 98.1(O); Pulse Ox 99% on R/A; Pain 0/10; ls4 22:30 BP 148 / 89; Pulse 88; Resp 16; Pulse Ox 99% on R/A; Pain 0/10; ls4 19:05 Body Mass Index 37.20 (95.25 kg, 160.02 cm) ED Course: 18:46 Patient arrived in ED. ag5 18:57 Delta Carter PA is PHCP. [facility] 18:57 El Magallon MD is Attending Physician. [facility] 19:11 Triage completed. iw 19:12 Arm band placed on. iw 19:25 Nury Suarez, JEAN PAUL is Primary Nurse. ls4 19:35 Patient has correct armband on for positive identification. Bed in low position. Call rv light in reach. Side rails up X 1. Pulse ox on. NIBP on. 19:35 Inserted saline lock: 20 gauge in right antecubital area, using aseptic technique. rv ,using aseptic technique. by [facility] Blood collected. 19:35 Initial lab(s) drawn, by ED staff, sent to lab. rv 19:43 Lipase Sent. ds4 19:43 Basic Metabolic Panel Sent. ds4 19:43 CBC with Diff Sent. ds4 19:43 Creatinine for Radiology Sent. ds4 19:43 Hepatic Function Sent. ds4 20:29 Notified Nurse Practitioner and/or Physician [employer] Laboratory Technician of a critical lab result(s), ls4 glucose 461 to Delta JUAREZ. 22:01 No provider procedures requiring assistance completed. ls4 23:47 intact, bleeding controlled, No redness/swelling at site. Pressure dressing applied. ls4 Administered Medications: 19:35 Drug: NS 0.9% 1000 ml Route: IV; Rate: 1 bolus; Site: right antecubital; rv 20:35 Follow up: IV Status: Completed infusion; IV Intake: 1000ml ls4 21:00 Drug: NS 0.9% 1000 ml Route: IV; Rate: 1 bolus; Site: right antecubital; ls4 22:00 Follow up: IV Status: Completed infusion; IV Intake: 1000ml ls4 21:05 Not Given (Other Intervention Used): Insulin Regular Human 10 units IVP once ls4 Intake: 20:35 IV: 1000ml; Total: 1000ml. ls4 22:00 IV: 1000ml; Total: 2000ml. ls4 Outcome: 23:19 Discharge ordered by MD. brewster 23:41 Discharged to home ambulatory. ls4 23:41 Condition: good 23:41 Discharge instructions given to patient, family, Instructed on discharge instructions, follow up and referral plans. medication usage, safety practices, Demonstrated understanding of instructions, follow-up care, medications, Prescriptions given X 1. 04 00:19 Patient left the ED. ls4 Signatures: Delta Carter PA PA jmm Williams, Irene, RN RN Van Slaughter ds4 Akhil Dobson RN RN Nury Pineda RN RN ls4 Reuben Chavira ag5
--- NOTE | 2020-03-15 23:19 | EDPHYS ---
Physician Documentation [facility] Name: Fabi Diana Age: 39 yrs Sex: Female : 1980 Arrival Date: 03/15/2020 Time: 18:46 Bed 17 Private MD: ED Physician El Magallon HPI: 03/15 19:39 This 39 yrs old Female presents to ER via Ambulatory with complaints of High jmm Blood Sugar. 19:39 The patient or guardian reports hyperglycemia. Onset: The symptoms/episode jmm began/occurred gradually, 1 day(s) ago. Associated signs and symptoms: Pertinent positives: weakness. This is a 39 year old female with a history of dm that presents to the ED with complaints of weakness and fatigue along with elevated BGL. Patient admits to not taking insulin since September of 2019. Denies abdominal pain, vomiting or shortness of breath. . Historical: - Allergies: 19:12 NKDA; iw - Home Meds: 19:12 metformin 500 mg Oral tr24 1 tab once daily [Active]; lisinopril-hydrochlorothiazide iw 10-12.5 mg Oral tab 1 tab once daily [Active]; glipizide 10 mg Oral tab 1 tab once daily [Active]; gabapentin Oral [Active]; - PMHx: 19:12 Diabetes - NIDDM; Hypertension; iw - PSHx: 19:12 Tubal ligation; Cholecystectomy; iw - Immunization history:: Adult Immunizations up to date. - Social history:: Smoking status: Patient denies any tobacco usage or history of. ROS: 19:39 Constitutional: Negative for fever, chills, and weight loss, Cardiovascular: Negative jmm for chest pain, palpitations, and edema, Respiratory: Negative for shortness of breath, cough, wheezing, and pleuritic chest pain. 19:39 Abdomen/GI: Negative for nausea and vomiting, diarrhea. 19:39 All other systems are negative. Exam: 19:39 Constitutional: This is a well developed, well nourished patient who is awake, alert, jmm and in no acute distress. Head/Face: atraumatic. Eyes: EOMI, no conjunctival erythema appreciated ENT: Moist Mucus Membranes Neck: Trachea midline, Supple Chest/axilla: Normal chest wall appearance and motion. Cardiovascular: Regular rate and rhythm. No edema appreciated Respiratory: Normal respirations, no respiratory distress appreciated Abdomen/GI: Non distended, soft Back: Normal ROM MS/ Extremity: Moves all extremities, no obvious deformities appreciated, no edema noted to the lower extremities Neuro: Awake and alert, normal gait Psych: Behavior is normal, Mood is normal, Patient is cooperative and pleasant Vital Signs: 19:05 Pulse 96; Resp 16 S; Temp 98.2; Pulse Ox 100% on R/A; Weight 95.25 kg; Height 5 ft. 3 iw in. (160.02 cm); Pain 0/10; 20:28 BP 144 / 92; Pulse 92; Resp 14; Pulse Ox 99% ; Pain 3/10; ls4 21:30 BP 150 / 88; Pulse 89; Resp 14; Pulse Ox 99% ; Pain 3/10; ls4 22:30 BP 144 / 96; Pulse 79; Resp 14; Temp 98.1(O); Pulse Ox 99% on R/A; Pain 0/10; ls4 22:30 BP 148 / 89; Pulse 88; Resp 16; Pulse Ox 99% on R/A; Pain 0/10; ls4 19:05 Body Mass Index 37.20 (95.25 kg, 160.02 cm) iw MDM: 19:31 Patient medically screened. ney 23:15 Data reviewed: vital signs, nurses notes. Counseling: I had a detailed discussion with ney the patient and/or guardian regarding: the historical points, exam findings, and any diagnostic results supporting the discharge/admit diagnosis, lab results, the need for outpatient follow up, to return to the emergency department if symptoms worsen or persist or if there are any questions or concerns that arise at home. ED course: Patient is alert and non toxic in appearance in the ED. Patient tolerates PO in the ED. Patient advised to closely follow up with pcp and otherwise given strict return precautions. Patient understood and agrees with the plan of care. . 03/15 19: Order name: Glucose, Ancillary Testing; Complete Time: 19:22 [facility]MA 03/15 19:22 Order name: Basic Metabolic Panel; Complete Time: 20:50 [facility] 03/15 19:22 Order name: CBC with Diff; Complete Time: 20:03 [facility] 03/15 19:22 Order name: Creatinine for Radiology; Complete Time: 20:14 [facility] 04/19 19:22 Order name: Hepatic Function; Complete Time: 20:50 [facility] 03/15 19:22 Order name: Lipase; Complete Time: 20:50 [facility] 03/15 19:22 Order name: IV Saline Lock; Complete Time: 19:27 [facility] 03/15 19:22 Order name: Labs collected and sent; Complete Time: 19:27 [facility] 03/15 20:55 Order name: Glucose, Ancillary Testing; Complete Time: 20:57 [facility]MA 03/15 22:06 Order name: Glucose, Ancillary Testing; Complete Time: 22:09 [facility]MA 03/15 22:49 Order name: Glucose, Ancillary Testing; Complete Time: 23:11 EDMS Administered Medications: 19:35 Drug: NS 0.9% 1000 ml Route: IV; Rate: 1 bolus; Site: right antecubital; rv 20:35 Follow up: IV Status: Completed infusion; IV Intake: 1000ml ls4 21:00 Drug: NS 0.9% 1000 ml Route: IV; Rate: 1 bolus; Site: right antecubital; ls4 22:00 Follow up: IV Status: Completed infusion; IV Intake: 1000ml ls4 21:05 Not Given (Other Intervention Used): Insulin Regular Human 10 units IVP once ls4 Disposition: 03/15/20 23:19 Discharged to Home. Impression: Hyperglycemia, unspecified. - Condition is Stable. - Discharge Instructions: Hyperglycemia. - Prescriptions for Metformin 500 mg Oral Tablet - take 1 tablet by ORAL route once daily for 7 days Then take 1 tablet with morning meals AND evening meals; 21 tablet. - Medication Reconciliation Form, Thank You Letter, Antibiotic Education, Prescription Opioid Use form. - Follow up: Private Physician; When: 2 - 3 days; Reason: Recheck today's complaints, Continuance of care, Re-evaluation by your physician. Addendum: 03/17/2020 10:05 Co-signature as Attending Physician, El Magallon MD I agree with the assessment and t w4 plan of care. Signatures: Dispatcher [employer] Delta Greene PA PA jmm Williams, Irene, RN El Kunz MD MD tw4 Akhil Dobson RN RN rv Nury Suarez RN RN ls4 Corrections: (The following items were deleted from the chart) 03/16 00:19 03/15 23:19 03/15/2020 23:19 Discharged to Home. Impression: Hyperglycemia, ls4 unspecified. Condition is Stable. Forms are Medication Reconciliation Form, Thank You Letter, Antibiotic Education, Prescription Opioid Use. Follow up: Private Physician; When: 2 - 3 days; Reason: Recheck today's complaints, Continuance of care, Re-evaluation by your physician. ney
[2020-03-16 00:28] VITALS: O2SAT 99
[2020-03-16 00:32] VITALS: BP 148/89; TEMP 98.1
== END 2020-03-16 00:19 | disposition home or self-care (01) ==
LOC: ER 18:43
DX: E11.65 Type 2 diabetes mellitus with hyperglycemia (principal); I10 Essential (primary) hypertension
CPT/HCPCS: 36415; 80048; 80076; 82947; 83690; 85025; J7030

== ENCOUNTER 2021-06-21 18:35 | Emergency (ER) | payer SELFPAY ==
[2021-06-21] MEDS ORDERED: METOCLOPRAMIDE 10 MG/2mL INJ ONE (22:52)
[2021-06-21] MEDS ORDERED: NA CHLORIDE 0.9% 1,000 ML ONE (22:53)
[2021-06-21 22:59] LABS: Absolute Lymphocytes (CBC) 1.5 K/uL (0.7-4.9); Basophils % 1.1 % (0-1.3); Hematocrit 35.5 % (36.0-45.0); Lymphocytes % 16.4 % (15.3-44.8); MPV 9.3 fL (7.6-11.3); RBC Red Blood Cell Count 4.18 M/uL (3.86-4.86)
[2021-06-21 23:10] LABS: Albumin 3.4 g/dL (3.4-5.0); Bilirubin Direct 0.1 mg/dL (0-0.2); Bilirubin Total 0.3 mg/dL (0.2-1.0); Potassium 3.5 mmol/L (3.5-5.1); Protein, Total 7.5 g/dL (6.4-8.2)
[2021-06-22] MEDS ORDERED: PROMETHAZINE INJ 25 MG/ML AMP ONE (01:39)
[2021-06-22 02:39] LABS: Urine Appearance Cloudy (Clear); Urine Bilirubin Negative (Negative); Urine Blood 3+ (Negative); Urine Color Yellow (Yellow); Urine Glucose Negative (Negative); Urine Protein 2+ (Negative); Urine Specific Gravity 1.025 (1.005-1.030); Urine Urobilinogen 0.2 mg/dL (0.2-1.0)
[2021-06-22 02:40] LABS: Urine Microscopic Reflex ORDER UMIC
[2021-06-22 02:55] LABS: Urine Bacteria LOADED /HPF (<20)
[2021-06-22 02:56] LABS: Urine RBC NONE SEEN /HPF (NONE SEEN)
--- NOTE | 2021-06-22 12:13 | RAD REPORT ---
EXAM DESCRIPTION: CT - Abdomen Pelvis W Contrast - 06/22/2021 6:29 am CLINICAL HISTORY: The patient is 40 years old and is Female; right sided abdominal pain TECHNIQUE: Axial computed tomography images of the abdomen and pelvis with intravenous contrast. S agittal and coronal reformatted images were created and reviewed. This CT exam was performed using one or more of the following dose reduction techniques: automated exposure control, adjustment of t he mA and/or kV according to patient size, and/or use of iterative reconstruction technique. COMPARISON: No relevant prior studies available. FINDINGS: Lung bases: Unremarkable. No mass. No consolidation. ABDOMEN: Liver: Unremarkable. No mass. Gallbladder and bile ducts: Gallbladder is surgically absent. No ductal dilation. Pancreas: Pancreas is atrophic. No ductal dilation. Spleen: Unremarkable. No splenomegaly. Adrenals: Unremarkable. No mass. Kidneys and ureters: Unremarkable. No solid mass. No hydronephrosis. Stomach and bowel: Unremarkable. No obstruction. No mucosal thickening. PELVIS: Appendix: No findings to suggest acute appendicitis. Bladder: There is diffuse bladder wall thickening, but evaluation is limited by non-distention. Reproductive: Suggestion of mild bilateral hydrosalpinx. ABDOMEN and PELVIS: Intraperitoneal space: Unremarkable. No free air. No significant fluid collection. Bones/joints: Disc bulge at L5-S1. No acute fracture. No dislocation. Soft tissues: Unremarkable. Vasculature: Unremarkable. No abdominal aortic aneurysm. Lymph nodes: Unremarkable. No enlarged lymph nodes. IMPRESSION: 1. Gallbladder is surgically absent. 2. Pancreas is atrophic. 3. There is diffuse bladder wall thickening, but evaluation is limited by non-distention. Correla te with any concern for cystitis. 4. Suggestion of mild bilateral hydrosalpinx. Electronically signed by: Kodak Muñiz MD 06/22/2021 12:16 AM CDT Due to temporary technical issues with the PACS/Fluency reporting system, reports are being signed by the in house radiologists without review as a courtesy to insure prompt reporting. The interpreting radiologist is fully responsible for the content of the report.
--- NOTE | 2021-06-22 17:48 | EDPHYS ---
Physician Documentation [facility] Name: Fabi Diana Age: 40 yrs Sex: Female : 1980 Arrival Date: 06/21/2021 Time: 18:58 Bed 15 Private MD: Chaparro Dean E ED Physician Lazarus Zaidi HPI: 06/21 20:30 This 40 yrs old Female presents to ER via Ambulatory with complaints of jmm Vomiting/Diarrhea. 20:30 The patient presents to the emergency department with nausea, vomiting, diarrhea, jmm abdominal pain. Onset: The symptoms/episode began/occurred gradually, 1 week(s) ago. Possible causes: unknown. The symptoms are aggravated by nothing. The symptoms are alleviated by nothing. Associated signs and symptoms: Pertinent positives: abdominal pain, diarrhea, Pertinent negatives: fever, GI bleeding. This is a 39-year-old female with history of diabetes mellitus, hypertension the presents the ER with complaints of generalized abdominal ache, vomiting, diarrhea. Patient localizes abdominal pain mainly to the right side. Denies recent travel, denies infectious exposure, denies cough, denies shortness of breath, denies recent antibiotic use.. GRAPHICS EDITOR: 20:13 LMP 06/11/2021 kg Historical: - Allergies: 20:09 NKDA; kg - Home Meds: 20:09 gabapentin Oral [Active]; glipizide 10 mg Oral tab 1 tab once daily [Active]; kg lisinopril-hydrochlorothiazide 10-12.5 mg Oral tab 1 tab once daily [Active]; metformin 500 mg Oral tr24 1 tab once daily [Active]; Tresiba FlexTouch U-100 100 unit/mL (3 mL) subcutaneous inpn [Active]; Cymbalta 30 mg oral cpDR 1 cap once daily [Active]; - PMHx: 20:09 Diabetes - NIDDM; Hypertension; Neuropathy; kg - PSHx: 20:11 tubal ligation; Cholecystectomy; kg - Immunization history:: Adult Immunizations up to date, Client reports having NOT received the Covid vaccine. - Social history:: Smoking status: Patient denies any tobacco usage or history of. ROS: 20:30 Constitutional: Positive for body aches. jmm 20:30 Respiratory: Positive for cough. 20:30 Abdomen/GI: Positive for abdominal pain, nausea and vomiting, diarrhea. 20:30 All other systems are negative. Exam: 20:30 Constitutional: This is a well developed, well nourished patient who is awake, alert, jmm and in no acute distress. Head/Face: atraumatic. Eyes: EOMI, no conjunctival erythema appreciated ENT: Moist Mucus Membranes Neck: Trachea midline, Supple Chest/axilla: Normal chest wall appearance and motion. Cardiovascular: Regular rate and rhythm. No edema appreciated Respiratory: Normal respirations, no respiratory distress appreciated 20:30 Back: Normal ROM Skin: General appearance color normal MS/ Extremity: Moves all extremities, no obvious deformities appreciated, no edema noted to the lower extremities Neuro: Awake and alert, normal gait Psych: Behavior is normal, Mood is normal, Patient is cooperative and pleasant 20:30 Abdomen/GI: Inspection: obese Bowel sounds: normal, Palpation: soft, mild abdominal tenderness, in the right upper quadrant and right lower quadrant. Vital Signs: 20:07 BP 138 / 82; Pulse 101; Resp 20; Temp 97.1; Pulse Ox 97% on R/A; Weight 100.7 kg; kg Height 5 ft. 3 in. (160.02 cm); Pain 6/10; 06/22 02:23 BP 130 / 74; Pulse 85; Resp 18; Pulse Ox 98% on R/A; ak2 06/21 20:07 Body Mass Index 39.33 (100.70 kg, 160.02 cm) kg MDM: 06/21 21:55 Patient medically screened. [facility] 06/22 01:01 Data reviewed: vital signs, nurses notes. Counseling: I had a detailed discussion with ney the patient and/or guardian regarding: the historical points, exam findings, and any diagnostic results supporting the discharge/admit diagnosis, lab results, radiology results. 01:02 ED course: Patient states nausea is mildly improved, patient is able to tolerate p.o. ney discussed CT findings with the patient stated that she had a tubal ligation after having 6 children and does not plan on having anymore. I did discuss the mild hydrosalpinx findings and the need to follow-up with GRAPHICS EDITOR for further evaluation. CT also revealed inflammation in the bladder, will treat patient with oral antibiotics. Patient otherwise given strict return precautions. Patient understood and agrees plan of care.. 06/21 20:30 Order name: Glucose, Ancillary Testing; Complete Time: 22:01 [facility] 06/21 22:21 Order name: Basic Metabolic Panel [facility] 06/21 22:21 Order name: CBC with Diff; Complete Time: 23:46 [facility] 06/21 22:21 Order name: Hepatic Function [facility] 06/21 22:21 Order name: Lipase; Complete Time: 23:46 [facility] 06/21 22:22 Order name: Basic Metabolic Panel; Complete Time: 23:46 [facility] 06/21 22:22 Order name: Liver (Hepatic) Function; Complete Time: 23:46 [facility] 06/21 22:27 Order name: CT Abd/Pelvis - IV Contrast Only [facility] 06/22 02:38 Order name: Urinalysis [facility] 06/21 22:21 Order name: Urine Dipstick-Ancillary (obtain specimen) [facility] 06/21 22:21 Order name: Urine Test (obtain specimen) [facility] 06/21 22:21 Order name: IV Saline Lock [facility] 06/21 22:21 Order name: Labs collected and sent [facility] Administered Medications: 06/21 22:33 Drug: Reglan (metoCLOPramide) 20 mg Route: IVP; Site: left antecubital; ak2 22:34 Drug: NS 0.9% 1000 ml Route: IV; Rate: 1 bolus; Site: left antecubital; ak2 06/22 01:20 Drug: NS 0.9% 1000 ml Route: IV; Rate: 1 bolus; Site: left antecubital; ak2 01:20 Drug: Promethazine 12.5 mg Route: IVP; Site: left antecubital; ak2 Disposition: 07:05 Co-signature as Attending Physician, Lazarus Zaidi MD I agree with the assessment and guillaume plan of care. Disposition Summary: 06/22/21 01:04 Discharge Ordered Location: Home [facility] Condition: Stable [facility] Diagnosis - Vomiting jmm - Diarrhea, unspecified [facility] Followup: [facility] - With: Private Physician - When: 2 - 3 days - Reason: Recheck today's complaints, Continuance of care, Re-evaluation by your physician Discharge Instructions: - Discharge Summary Sheet [facility] - Food Choices to Help Relieve Diarrhea, Adult jmm - Vomiting, Adult m Forms: - Medication Reconciliation Form [facility] - Thank You Letter [facility] - Antibiotic Education jmm - Prescription Opioid Use [facility] Prescriptions: - promethazine 12.5 mg Rectal suppository - insert 1 suppository by RECTAL route every 6 hours; 12 suppository; Refills: 0, [facility] Product Selection Permitted - Cipro 500 mg Oral Tablet - take 1 tablet by ORAL route every 12 hours for 7 days; 14 tablet; Refills: 0, [facility] Product Selection Permitted Signatures: Dispatcher [employer] Lazarus Lackey MD MD cha Mickail, Joel, PA PA [place] RN RN Syed Ruiz2
--- NOTE | 2021-06-22 17:48 | ER ---
Nurse's Notes [facility] Name: Fabi Diana Age: 40 yrs Sex: Female : 1980 Arrival Date: 06/21/2021 Time: 18:58 Bed 15 Private MD: Chaparro Dean E Diagnosis: Vomiting;Diarrhea, unspecified Presentation: 06/21 20:07 Chief complaint: Patient states: Nausea, Vomiting, Diarrhea, increased blood sugar x 1 kg wk. Coronavirus screen: Client denies travel out of the [place] in the last 14 days. At this time, unable to obtain information related to travel outside the [place] At this time, the client does not indicate any symptoms associated with coronavirus-19. Ebola Screen: Patient negative for fever greater than or equal to 101.5 degrees Fahrenheit, and additional compatible Ebola Virus Disease symptoms Patient denies exposure to infectious person. Patient denies travel to an Ebola-affected area in the 21 days before illness onset. Initial Sepsis Screen: Does the patient meet any 2 criteria? HR > 90 bpm. No. Patient's initial sepsis screen is negative. Does the patient have a suspected source of infection? No. Patient's initial sepsis screen is negative. Risk Assessment: Do you want to hurt yourself or someone else? Patient reports no desire to harm self or others. Onset of symptoms was June 14, 2021. 20:07 Method Of Arrival: Ambulatory kg 20:07 Acuity: BAYLEE 3 kg Triage Assessment: 20:11 General: Appears in no apparent distress. Behavior is calm, cooperative, appropriate kg for age, quiet. Pain: Complains of pain in abdomen. GI: Reports lower abdominal pain, upper abdominal pain, diarrhea, nausea, vomiting. 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 kg Historical: - Allergies: 20:09 NKDA; kg - Home Meds: 20:09 gabapentin Oral [Active]; glipizide 10 mg Oral tab 1 tab once daily [Active]; kg lisinopril-hydrochlorothiazide 10-12.5 mg Oral tab 1 tab once daily [Active]; metformin 500 mg Oral tr24 1 tab once daily [Active]; Tresiba FlexTouch U-100 100 unit/mL (3 mL) subcutaneous inpn [Active]; Cymbalta 30 mg oral cpDR 1 cap once daily [Active]; - PMHx: 20:09 Diabetes - NIDDM; Hypertension; Neuropathy; kg - PSHx: 20:11 tubal ligation; Cholecystectomy; kg - Immunization history:: Adult Immunizations up to date, Client reports having NOT received the Covid vaccine. - Social history:: Smoking status: Patient denies any tobacco usage or history of. Screenin:12 Abuse screen: Denies threats or abuse. Denies injuries from another. Nutritional kg screening: No deficits noted. Tuberculosis screening: No symptoms or risk factors identified. Fall Risk None identified. No fall in past 12 months (0 pts). No secondary diagnosis (0 pts). IV access (20 points). Ambulatory Aid- None/Bed Rest/Nurse Assist (0 pts). Gait- Normal/Bed Rest/Wheelchair (0 pts) Mental Status- Oriented to own ability (0 pts). Total Schuster Fall Scale indicates No Risk (0-24 pts). Assessment: 06/22 02:23 Reassessment: Patient and/or family updated on plan of care and expected duration. Pain ak2 level reassessed. Vital Signs: 06/21 20:07 BP 138 / 82; Pulse 101; Resp 20; Temp 97.1; Pulse Ox 97% on R/A; Weight 100.7 kg; kg Height 5 ft. 3 in. (160.02 cm); Pain 6/10; 06/22 02:23 BP 130 / 74; Pulse 85; Resp 18; Pulse Ox 98% on R/A; ak2 06/21 20:07 Body Mass Index 39.33 (100.70 kg, 160.02 cm) kg ED Course: 06/21 18:58 Patient arrived in ED. mr 18:58 Chaparro Dean MD is Private Physician. mr 20:09 Triage completed. kg 20:13 Patient has correct armband on for positive identification. kg 21:04 Delta Carter PA is PHCP. jmm 21:04 Lazarus Zaidi MD is Attending Physician. jmm 23:33 CT Abd/Pelvis - IV Contrast Only In Process Unspecified. EDMS Administered Medications: 22:33 Drug: Reglan (metoCLOPramide) 20 mg Route: IVP; Site: left antecubital; ak2 22:34 Drug: NS 0.9% 1000 ml Route: IV; Rate: 1 bolus; Site: left antecubital; ak2 06/22 01:20 Drug: NS 0.9% 1000 ml Route: IV; Rate: 1 bolus; Site: left antecubital; ak2 01:20 Drug: Promethazine 12.5 mg Route: IVP; Site: left antecubital; ak2 Outcome: 01:04 Discharge ordered by . ney 02:39 Discharged to home ambulatory. ak2 02:39 Condition: good 02:39 Discharge instructions given to patient, family. 02:39 Patient left the ED. ak2 Signatures: Dispatcher [employer] EDMS Delta Carter PA PA jmm Rivera, Mary mr Graham, Kristen, RN RN Syed Ruiz ak2
[2021-06-23 17:35] VITALS: TEMP 97.1
[2021-06-23 17:37] VITALS: BP 130/74; O2SAT 98
== END 2021-06-22 02:39 | disposition home or self-care (01) ==
LOC: ER 18:35
DX: R19.7 Diarrhea, unspecified (principal); I10 Essential (primary) hypertension; E11.40 Type 2 diabetes mellitus with diabetic neuropathy, unspecified; Z79.4 Long term (current) use of insulin
CPT/HCPCS: 36415; 74177; 80048; 80076; 81003; 81015; 82947; 83690; 85025; 87077; 87086; 87088; 87186; J2550; J2765; J7030; Q9967

== ENCOUNTER 2022-02-10 13:41 | Emergency (ER) | payer OTHER ==
[2022-02-10 14:06] LABS: Urine Blood 2+ (Negative); Urine Glucose 3+ (Negative); Urine Protein Trace (Negative); Urine pH 5.5 (5.0-7.0)
[2022-02-10] MEDS ORDERED: CEFTRIAXONE 1000 MG/VIAL ONE (14:10)
[2022-02-10] MEDS ORDERED: NA CHLORIDE 0.9% 1,000 ML ONE (14:10)
[2022-02-10] MEDS ORDERED: ONDANSETRON 4 MG/2 ML VIAL ONE (14:10)
[2022-02-10 14:15] LABS: Absolute Lymphocytes (CBC) 2.2 K/uL (0.7-4.9); Hematocrit 35.4 % (36.0-45.0); Lymphocytes % 24.3 % (15.3-44.8); MPV 9.1 fL (7.6-11.3)
[2022-02-10 14:36] LABS: BUN Blood Urea Nitrogen 28 mg/dL (7-18); Bicarbonate 24 mmol/L (21-32); Potassium 3.9 mmol/L (3.5-5.1); Sodium Level 131 mmol/L (136-145)
[2022-02-10 14:42] LABS: Glucose Level 474 mg/dL (74-106)
[2022-02-10 14:46] LABS: Urine Bacteria 20-50 /HPF (<20)
[2022-02-10] MEDS ORDERED: INSULIN -REGULAR HUMAN 50 UNIT/0.5 ML ML ONE (15:00)
--- NOTE | 2022-02-10 16:38 | EDPHYS ---
Physician Documentation [facility] Name: Fabi Diana Age: 41 yrs Sex: Female : 1980 Arrival Date: 02/10/2022 Time: 13:43 Bed 27 Private MD: ED Physician Roby Lr HPI: 02/10 14:59 This 41 yrs old Female presents to ER via Ambulatory with complaints of kb Vomiting, High Blood Sugar. 14:59 The patient presents to the emergency department with nausea, vomiting. Onset: The kb symptoms/episode began/occurred 3 day(s) ago. Possible causes: unknown. The symptoms are aggravated by nothing. The symptoms are alleviated by nothing. Associated signs and symptoms: Pertinent positives: nausea, vomiting, Pertinent negatives: abdominal pain, diarrhea, fever. Severity of symptoms: At their worst the symptoms were moderate in the emergency department the symptoms are unchanged. The patient has not experienced similar symptoms in the past. The patient has not recently seen a physician. Pt reports nausea and vomiting for 3 days. States she checked her sugar and it has been running high as well. States she normally takes metformin, glipizide and insulin, but has been out of insulin for a month. 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 Flu vaccine is not up to date. - Social history:: Smoking status: Patient denies any tobacco usage or history of. ROS: 14:59 Constitutional: Negative for fever, chills, and weight loss. kb 14:59 Abdomen/GI: Positive for nausea and vomiting, Negative for abdominal pain, diarrhea. 14:59 All other systems are negative. Exam: 14:59 Constitutional: This is a well developed, well nourished patient who is awake, alert, kb and in no acute distress. Head/Face: Normocephalic, atraumatic. ENT: Moist Mucous membranes Cardiovascular: Regular rate and rhythm with a normal S1 and S2. No gallops, murmurs, or rubs. No pulse deficits. Respiratory: Respirations even and unlabored. No increased work of breathing. Talking in full sentences Abdomen/GI: Soft, non-tender. No distention Skin: Warm, dry with normal turgor. Normal color. MS/ Extremity: Pulses equal, no cyanosis. Neurovascular intact. Full, normal range of motion. Neuro: Awake and alert, GCS 15, oriented to person, place, time, and situation. Moves all extremities. Normal gait. Psych: Awake, alert, with orientation to person, place and time. Behavior, mood, and affect are within normal limits. Vital Signs: 13:50 BP 154 / 100; Pulse 99; Resp 16 S; Temp 98.1(TE); Pulse Ox 100% on R/A; Weight 95.25 kg aa5 (R); Height 5 ft. 3 in. (160.02 cm) (R); 14:18 BP 156 / 88; Pulse 93; Resp 18; Pulse Ox 100% on R/A; ss7 15:30 BP 145 / 97; Pulse 90; Resp 20; Pulse Ox 100% on R/A; ss7 16:30 BP 130 / 80; Pulse 91; Resp 18; Pulse Ox 97% ; ss7 13:50 Body Mass Index 37.20 (95.25 kg, 160.02 cm) aa5 MDM: 13:49 Patient medically screened. kb 14:59 Data reviewed: vital signs, nurses notes. Data interpreted: Pulse oximetry: on room air kb is 100 %. Interpretation: normal. 16:25 Counseling: I had a detailed discussion with the patient and/or guardian regarding: the kb historical points, exam findings, and any diagnostic results supporting the discharge/admit diagnosis, lab results, the need for outpatient follow up, a family practitioner, to return to the emergency department if symptoms worsen or persist or if there are any questions or concerns that arise at home. 16:36 ED course: Pt nontoxic in appearance. Pt tolerating po intake, has no abd pain. Pt kb given return precautions and educated to get back on insulin as prescribed. Pt states she has a new prescription for insulin at the pharmacy ready for pickup. Verbal understanding of all instructions received. . 02/10 13:50 Order name: CBC with Diff kb 02/10 13:50 Order name: Basic Metabolic Panel kb 02/10 13:50 Order name: Acetone, Serum kb 02/10 13:51 Order name: CBC with Automated Diff; Complete Time: 14:23 EDMS 02/10 13:51 Order name: Basic Metabolic Panel; Complete Time: 14:45 EDMS 02/10 13:51 Order name: Acetone Level; Complete Time: 14:45 EDMS 02/10 14:05 Order name: Urine Dipstick-Ancillary; Complete Time: 14:09 EDMS 02/10 14:09 Order name: Urine Microscopic Only; Complete Time: 14:56 kb 02/10 14:48 Order name: Urine Culture EDVA 02/10 15:12 Order name: Glucose, Ancillary Testing; Complete Time: 15:27 EDMS 02/10 16:21 Order name: Glucose, Ancillary Testing; Complete Time: 16:24 EDMS 02/10 16:21 Order name: Glucose, Ancillary Testing EDVA 02/10 13:50 Order name: Urine Dipstick-Ancillary (obtain specimen); Complete Time: 14:15 kb 02/10 13:50 Order name: IV Start; Complete Time: 14:14 kb 02/10 14:57 Order name: PO challenge; Complete Time: 15:02 kb Administered Medications: 14:15 Drug: NS 0.9% 1000 ml Route: IV; Rate: 1000 ml; Site: right antecubital; ss7 16:15 Follow up: IV Status: Completed infusion ss7 14:15 Drug: Zofran (Ondansetron) 4 mg Route: IVP; Site: right antecubital; ss7 16:24 Follow up: Response: Nausea is decreased ss7 14:57 Drug: Insulin Regular Human 5 units {Co-Signature: ld1 (Melly Granado RN).} Route: ss7 IVP; Site: right antecubital; 16:24 Follow up: Response: Blood sugar is lowered ss7 14:57 CANCELLED (Physician Discretion): NS 0.9% 1000 ml IV at 1000 ml once kb 16:23 Drug: Insulin Regular Human 5 units {Co-Signature: ld1 (Melly Granado RN).} Route: ss7 IVP; Site: right antecubital; 16:53 Follow up: Response: Blood sugar is lowered ss7 Disposition: 17:21 Co-signature as Attending Physician, Miesha MENG I agree with the assessment [id number] and plan of care. 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 I agree with assessment and care plan and confirm the diagnosis (es) above. Disposition Summary: 02/10/22 16:37 Discharge Ordered Location: Home kb Condition: Stable kb Diagnosis - Diabetes mellitus due to underlying condition with hyperglycemia kb - Nausea with vomiting, unspecified kb Followup: kb - With: Emergency Department - When: As needed - Reason: Worsening of condition Followup: kb - With: Private Physician - When: 2 - 3 days - Reason: Recheck today's complaints, Continuance of care, Re-evaluation by your physician Discharge Instructions: - Discharge Summary Sheet kb - Nausea and Vomiting, Adult, [id number] kb - Hyperglycemia, [id number] kb Forms: - Medication Reconciliation Form kb - Thank You Letter kb - Antibiotic Education kb - Prescription Opioid Use kb Prescriptions: - Zofran 4 mg Oral Tablet - take 1 tablet by ORAL route every 6 hours As needed; 20 tablet; Refills: 0, kb Product Selection Permitted - dicyclomine 20 mg Oral Tablet - take 1 tablet by ORAL route 4 times per day As needed; 20 tablet; Refills: 0, kb Product Selection Permitted Signatures: Dispatcher [employer] Miesha Bender FNP-C FNP-Lissett Love, RN RN aa5 Roby Lr MD MD [id number] Minal Boyd RN RN ss7 Melly Granado RN ld1 Corrections: (The following items were deleted from the chart) 14:57 14:57 NS 0.9% 1000 ml IV at 1000 ml once ordered. kb kb
--- NOTE | 2022-02-10 16:38 | ER ---
Nurse's Notes [facility] Name: Fabi Diana Age: 41 yrs Sex: Female : 1980 Arrival Date: 02/10/2022 Time: 13:43 Bed 27 Private MD: Diagnosis: Diabetes mellitus due to underlying condition with hyperglycemia;Nausea with vomiting, unspecified Presentation: 02/10 13:49 Chief complaint: Patient states: vomiting since Monday and high blood sugar of 444 aa5 today. 13:49 Coronavirus screen: vomiting. Ebola Screen: No symptoms or risks identified at this aa5 time. Initial Sepsis Screen: Does the patient meet any 2 criteria? HR > 90 bpm. Does the patient have a suspected source of infection? No. Patient's initial sepsis screen is negative. Risk Assessment: Do you want to hurt yourself or someone else? Patient reports no desire to harm self or others. Onset of symptoms was January 2021. 13:49 Acuity: BAYLEE 3 aa5 13:49 Method Of Arrival: Ambulatory aa5 Triage Assessment: 15:47 GI: Reports nausea, vomiting. 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 Flu vaccine is not up to date. - Social history:: Smoking status: Patient denies any tobacco usage or history of. Screenin:17 Abuse screen: Denies threats or abuse. Nutritional screening: No deficits noted. ss7 Tuberculosis screening: No symptoms or risk factors identified. Fall Risk IV access (20 points). Assessment: 14:16 General: Appears in no apparent distress. uncomfortable, Behavior is calm, cooperative, ss7 appropriate for age. Pain: Complains of pain in abdomen. Neuro: No deficits noted. Cardiovascular: Heart tones S1 S2. Respiratory: Breath sounds are clear bilaterally. GI: Abdomen is round obese, Bowel sounds present X 4 quads. Abd is soft and non tender X 4 quads. : No deficits noted. EENT: No deficits noted. Derm: No deficits noted. Musculoskeletal: No deficits noted. 15:04 Reassessment: Pt given 16oz of water for PO challenge. Will assess for success or ss7 failure and notify provider. ss. 16:00 Reassessment: Pt drank 10-12 ounces of water without vomiting. . ss7 Vital Signs: 13:50 BP 154 / 100; Pulse 99; Resp 16 S; Temp 98.1(TE); Pulse Ox 100% on R/A; Weight 95.25 kg aa5 (R); Height 5 ft. 3 in. (160.02 cm) (R); 14:18 BP 156 / 88; Pulse 93; Resp 18; Pulse Ox 100% on R/A; ss7 15:30 BP 145 / 97; Pulse 90; Resp 20; Pulse Ox 100% on R/A; ss7 16:30 BP 130 / 80; Pulse 91; Resp 18; Pulse Ox 97% ; ss7 13:50 Body Mass Index 37.20 (95.25 kg, 160.02 cm) aa5 ED Course: 13:43 Patient arrived in ED. kz 13:43 [facility] Gleason [facility] kb 13:44 Roby Lr MD is Attending Physician. kb 13:50 Arm band placed on. aa5 13:56 Minal Boyd, JEAN PAUL is Primary Nurse. ss7 13:57 Triage completed. aa5 14:14 Urine Microscopic Only Sent. ss7 14:14 Acetone Level Sent. ss7 14:14 Basic Metabolic Panel Sent. ss7 14:14 CBC with Automated Diff Sent. ss7 14:14 Acetone, Serum Sent. ss7 14:15 Basic Metabolic Panel Sent. ss7 14:15 CBC with Diff Sent. ss7 14:17 Patient has correct armband on for positive identification. Bed in low position. Call ss7 light in reach. Warm blanket given. 14:17 No provider procedures requiring assistance completed. Inserted saline lock: 20 gauge ss7 in right antecubital area, using aseptic technique. 14:41 Notified Nurse Practitioner and/or Physician Franchise Specialist of a critical lab result(s), 474 aa5 glucose. 14:49 Urine Culture Sent. ss7 16:23 Glucose, Ancillary Testing Sent. ss7 16:45 IV discontinued, intact. ss7 Administered Medications: 14:15 Drug: NS 0.9% 1000 ml Route: IV; Rate: 1000 ml; Site: right antecubital; ss7 16:15 Follow up: IV Status: Completed infusion ss7 14:15 Drug: Zofran (Ondansetron) 4 mg Route: IVP; Site: right antecubital; ss7 16:24 Follow up: Response: Nausea is decreased ss7 14:57 Drug: Insulin Regular Human 5 units {Co-Signature: [email or web address] (Melly Granado RN).} Route: ss7 IVP; Site: right antecubital; 16:24 Follow up: Response: Blood sugar is lowered ss7 14:57 CANCELLED (Physician Discretion): NS 0.9% 1000 ml IV at 1000 ml once kb 16:23 Drug: Insulin Regular Human 5 units {Co-Signature: [email or web address] (Melly Granado RN).} Route: ss7 IVP; Site: right antecubital; 16:53 Follow up: Response: Blood sugar is lowered ss7 Outcome: 16:37 Discharge ordered by . kb 16:43 Discharged to home ambulatory. 7 16:43 Condition: good 16:43 Discharge instructions given to patient, Instructed on discharge instructions, follow up and referral plans. Demonstrated understanding of instructions, follow-up care. 17:04 Patient left the ED. 7 Signatures: Miesha Gleason, TAQUERIA GARCIA-Lissett Love RN RN aa5 Minal Boyd RN RN ss7 Leah Garza RN ld1
[2022-02-10 17:19] VITALS: TEMP 98.1
[2022-02-10 17:20] VITALS: BP 130/80; O2SAT 97
[2022-02-11] MEDS ORDERED: DIPHENOX/ATROP SULF 1 TAB PO ONE (04:47)
[2022-02-14] MEDS ORDERED: ACETAMINOPHEN 160 MG/5 ML UCUP ONE ×2 (09:42→09:47)
== END 2022-02-10 17:04 | disposition home or self-care (01) ==
LOC: ER 13:41
DX: E11.65 Type 2 diabetes mellitus with hyperglycemia (principal); Z79.4 Long term (current) use of insulin; I10 Essential (primary) hypertension
CPT/HCPCS: 96361; 87088; 85025; 87086; 80048; 36415; 82010; 82947 ×3; 87077; 87186; 96375; 96374; 99284; J7030; J2405; 81003; 81015

== ENCOUNTER 2023-06-02 18:12 | Emergency (ER) | payer OTHER ==
--- OUTSIDE RECORDS SUMMARY | 2023-06-02 18:24 | XMS REPORT | Continuity of Care Document ---
:1980 Author Organization [facility] t Address [address] [facility] [address] [place] [id number] Care Team Providers Name Role Phone Reed Thrasher Primary Care Physician ROSAURA ROJO Attending Clinician Unavailable ROSAURA ROJO Attending Clinician Unavailable REED KEATING Attending Clinician Unavailable Reed Thrasher Attending Clinician Lab, [place] Attending Clinician Unavailable [facility]ocrine Attending Clinician Payers Payer Name Policy Type Policy Number Effective Date Expiration Date Tao posey [facility] JESSICA [id number] 2022 00:00:00 Problems Condition Condition Condition Status Onset Resolution Last Treating Co mments Source Name Details Category Date Date Treatment Clinician Date Swelling Swelling Disease Active Unive rs of lower of lower 5-24 ity of leg leg 00:00: [place] [facility] Chest Chest Disease Active Univers pain, pain, 5-24 ity of unspecifie [place] type d type 00 [place] Hemorrhagi Hemorrhagi Disease Active U nivers c cystitis c cystitis 5-12 it y of 00:00: [place] [facility] Non-recurr Non-recurr Disease Active U nivers ent acute ent acute 5-12 ity of suppurativ suppurativ [place] ot[place] e [place]itis 00 Medica l media of media of Branch right ear right ear without without spontaneou spontaneou s rupture s rupture of of tympanic tympanic membrane membrane Turbidity Turbidity Disease Active Uni vers of body of body 5-12 ity of fluid fluid 00:00: [place] 00 Medical Branch Dyspepsia Dyspepsia Disease Active Uni vers 2-10 ity of 00:00: [place] [facility] Anemia, Anemia, Disease Active Univers unspecifie unspecifie 2-10 it y of d type d type 00:00: [place] 00 Medical Branch Need for Need for Disease Active Unive rs influenza influenza 2-10 ity of vaccinatio vaccinatio [place] 00 [facility] 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 00:00: [place] with with 00 [facility] diabetic diabetic Branch neuropathy neuropathy , with , with long-term long-term current current use of use of insulin insulin Encounter Encounter Disease Active 2021-11 Uni vers to to 2 ity of establish establish 00:00: [facility] care care 00 Medical Branch Essential Essential Disease Active 2021-11 Uni vers hypertensi hypertensi 2-27 it y of on on 00:00: [place] 00 Medical Branch Anxiety Anxiety Disease Active 2021-11 Univers and and 2 ity of depression depression [place]:00[place] Need for Need for Disease Active 2021-11 Unive rs hepatitis hepatitis 01-23 ity of C C 00:00: [place] screening screening 00 [facility] kathy test test Branch Allergies, Adverse Reactions, Alerts Allergy Allergy Status Severity Reaction(s) Onset Inactive Treating Comm ents Source Name Type Date Date Clinician NO KNOWN Drug Active Univers ALLERGIE Class ity of S [facility] Social History Social Habit Start Date Stop Date Quantity Comments Source Exposure to 2023-04-09 2023-04-19 Not sure [facility] SARS-CoV-2 00:00:00 13:16:00 [facility] (event) Branch Alcohol intake 2023-04-19 2023-04-19 Lifetime University of 00:00:00 00:00:00 non-drinker [facility] (finding) Branch Tobacco use and 2022-11-22 2022-11-22 Smokeless tobacco Un iversity of exposure 00:00:00 00:00:00 non-user [facility] Sex Ass[birth year] At [birth year] Universit y of 00:00:00 00:00:00 [facility] Smoking Status Start Date Stop Date Source Never smoked tobacco [facility] Medications Ordered Filled Start Stop Current Ordering Indication Dosage Frequency Signature Comments Components Source Medication Medication Date Date Medication? Clinician (SIG) Name Name lisinopriL 2022-0 Yes [id number] 10mg Take 1 U nivers 10 mg 6-07 tablet by ity of tablet 00:00: mouth in [place] 00 the Medical morning. Branch lisinopriL 2022-0 Yes [id number] 10mg Take 1 U nivers 10 mg 6-07 tablet by ity of tablet 00:00: mouth in [place] the Medical morning. Branch lisinopriL 2022-0 Yes [id number] 10mg Take 1 U nivers 10 mg 6-07 tablet by ity of tablet 00:00: mouth in [place] the Medical morning. Branch lisinopriL 2022-0 Yes [id number] 10mg Take 1 U nivers 10 mg 6-07 tablet by ity of tablet 00:00: mouth in [place] the Medical morning. Branch lisinopriL 2022-0 Yes [id number] 10mg Take 1 U nivers 10 mg 6-07 tablet by ity of tablet 00:00: mouth in [place] the Medical morning. Branch lisinopriL 2022-0 Yes [id number] 10mg Take 1 U nivers 10 mg 6-07 tablet by ity of tablet 00:00: mouth in [place] the Medical morning. Branch amoxicillin 2022-0 2022- Yes [id number] 1{tbl} Take 1 Univers -clavulanat 5-30 06-07 tablet by it y of e 00:00: 04:59 mouth in [place] (AUGMENTIN) 00 :00 the Medical 875-125 mg morning Branch per tablet and 1 tablet in the evening. Do all this for 7 days. amoxicillin 2022-0 2022- Yes [id number] 1{tbl} Take 1 Univers -clavulanat 5-30 06-07 tablet by it y of e 00:00: 04:59 mouth in [place] (AUGMENTIN) 00 :00 the Medical 875-125 mg morning Branch per tablet and 1 tablet in the evening. Do all this for 7 days. lisinopriL- 2022-0 202- No 1 tablet U nivers hydrochloro 5-24 05-24 ity of thiazide 14:07: 00:00 [place] 20-12.5 mg 48 :00 Medical per tablet Branch lisinopriL- 2023-0 2023- No 1 tablet U nivers hydrochloro 5-24 05-24 ity of thiazide 14:07: 00:00 [place] 20-12.5 mg 48 :00 Medical per tablet Branch Insulin 2023-0 Yes [id number] Use as Univ ers [place], 5-24 directed ity of Disposable, 00:00: [place] (COMFORT EZ 00 Medical PEN Branch NEEDLES) 31 gauge x 5/16" Ndle lisinopriL- 2023-0 Yes [id number] 1{tbl} Take 1 Univers hydrochloro 5-24 tablet by ity of thiazide 00:00: mouth in [place] 20-25 mg 00 the Medical per tablet morning. Branc h Blood-Gluco 2022-0 Yes [id number] Check U nivers se Meter 5-24 glucose ity of Kit 00:00: once a day [place] 00 or as Medical directed; Branch ICD-10 E11.9 Blood-Gluco 2022-0 Yes Use as Univ ers se Meter 5-24 directed ity of Kit 00:00: to check [place] 00 blood Medical sugars Branch once daily for DX E11.40 Lancets & 2022-0 Yes Use as Univer s Blood 5-24 directed ity of Glucose 00:00: to check [facility] 00 blood Medical sugars Branch once daily for DX E11.40 Insulin 2022-0 Yes [id number] Use as Univ ers [place], 5-24 directed ity of Disposable, 00:00: [place] (COMFORT EZ 00 Medical PEN Branch NEEDLES) 31 gauge x 5/16" Ndle lisinopriL- 2022-0 Yes [id number] 1{tbl} Take 1 Univers hydrochloro 5-24 tablet by ity of thiazide 00:00: mouth in [place] 20-25 mg 00 the Medical per tablet morning. Branc h Blood-Gluco 2023-0 Yes [id number] Check U nivers se Meter 5-24 glucose ity of Kit 00:00: once a day [place] 00 or as Medical directed; Branch ICD-10 E11.9 Blood-Gluco 3-0 Yes Use as Univ ers se Meter 5-24 directed ity of Kit 00:00: to check [place] 00 blood Medical sugars Branch once daily for DX E11.40 Lancets & 2023-0 Yes Use as Univer s Blood 5-24 directed ity of Glucose 00:00: to check [place] Strips Cmpk 00 blood Medical sugars Branch once daily for DX E11.40 Insulin 3-0 Yes [id number] Use as Univ ers [place], 5-24 directed ity of Disposable, 00:00: [place] (COMFORT EZ 00 Medical PEN Branch NEEDLES) 31 gauge x 5/16" Ndle lisinopriL- 3-0 Yes [id number] 1{tbl} Take 1 Univers hydrochloro 5-24 tablet by ity of thiazide 00:00: mouth in [place] 20-25 mg 00 the Medical per tablet morning. Branc h Blood-Gluco 2023-0 Yes [id number] Check U nivers se Meter 5-24 glucose ity of Kit 00:00: once a day [place] 00 or as Medical directed; Branch ICD-10 E11.9 Blood-Gluco 3-0 Yes Use as Univ ers se Meter 5-24 directed ity of Kit 00:00: to check [place] 00 blood Medical sugars Branch once daily for DX E11.40 Lancets & 2022-0 Yes Use as Univer s Blood 5-24 directed ity of Glucose 00:00: to check [place] Strips Cmpk 00 blood Medical sugars Branch once daily for DX E11.40 Insulin 2022-0 Yes [id number] Use as Univ ers [place], 5-24 directed ity of Disposable, 00:00: [place] (COMFORT EZ 00 Medical PEN Branch NEEDLES) 31 gauge x 5/16" Ndle lisinopriL- 3-0 Yes [id number] 1{tbl} Take 1 Univers hydrochloro 5-24 tablet by ity of thiazide 00:00: mouth in [place] 20-25 mg 00 the Medical per tablet morning. Branc h Blood-Gluco 2023-0 Yes [id number] Check U nivers se Meter 5-24 glucose ity of Kit 00:00: once a day [place] 00 or as Medical directed; Branch ICD-10 E11.9 Blood-Gluco 2023-0 Yes Use as Univ ers se Meter 5-24 directed ity of Kit 00:00: to check [place] 00 blood Medical sugars Branch once daily for DX E11.40 Lancets & 3-0 Yes Use as Univer s Blood 5-24 directed ity of Glucose 00:00: to check [place] Strips Cmpk 00 blood Medical sugars Branch once daily for DX E11.40 Insulin 2023-0 Yes [id number] Use as Univ ers [place], 5-24 directed ity of Disposable, 00:00: [place] (COMFORT EZ 00 Medical PEN Branch NEEDLES) 31 gauge x 5/16" Ndle lisinopriL- 3-0 Yes [id number] 1{tbl} Take 1 Univers hydrochloro 5-24 tablet by ity of thiazide 00:00: mouth in [place] 20-25 mg 00 the Medical per tablet morning. Branc h Blood-Gluco 2023-0 Yes [id number] Check U nivers se Meter 5-24 glucose ity of Kit 00:00: once a day [place] 00 or as Medical directed; Branch ICD-10 E11.9 Blood-Gluco 3-0 Yes Use as Univ ers se Meter 5-24 directed ity of Kit 00:00: to check [place] 00 blood Medical sugars Branch once daily for DX E11.40 Lancets & 2022-0 Yes Use as Univer s Blood 5-24 directed ity of Glucose 00:00: to check [place] Strips Cmpk 00 blood Medical sugars Branch once daily for DX E11.40 Insulin 2023-0 Yes [id number] Use as Univ ers [place], 5-24 directed ity of Disposable, 00:00: [place] (COMFORT EZ 00 Medical PEN Branch NEEDLES) 31 gauge x 5/16" Ndle lisinopriL- 3-0 Yes [id number] 1{tbl} Take 1 Univers hydrochloro 5-24 tablet by ity of thiazide 00:00: mouth in [place] 20-25 mg 00 the Medical per tablet morning. Branc h Blood-Gluco 2023-0 Yes [id number] Check U nivers se Meter 5-24 glucose ity of Kit 00:00: once a day [place] 00 or as Medical directed; Branch ICD-10 E11.9 Blood-Gluco 3-0 Yes Use as Univ ers se Meter 5-24 directed ity of Kit 00:00: to check [place] 00 blood Medical sugars Branch once daily for DX E11.40 Lancets & 3-0 Yes Use as Univer s Blood 5-24 directed ity of Glucose 00:00: to check [place] Strips Cmpk 00 blood Medical sugars Branch once daily for DX E11.40 Insulin 2023-0 Yes [id number] Use as Univ ers [place], 5-24 directed ity of Disposable, 00:00: [place] (COMFORT EZ 00 Medical PEN Branch NEEDLES) 31 gauge x 5/16" Ndle lisinopriL- 2023-0 Yes [id number] 1{tbl} Take 1 Univers hydrochloro 5-24 tablet by ity of thiazide 00:00: mouth in [place] 20-25 mg 00 the Medical per tablet morning. Branc h Blood-Gluco 2023-0 Yes [id number] Check U nivers se Meter 5-24 glucose ity of Kit 00:00: once a day [place] 00 or as Medical directed; Branch ICD-10 E11.9 Blood-Gluco 3-0 Yes Use as Univ ers se Meter 5-24 directed ity of Kit 00:00: to check [place] 00 blood Medical sugars Branch once daily for DX E11.40 Lancets & 2022-0 Yes Use as Univer s Blood 5-24 directed ity of Glucose 00:00: to check [place] Strips Cmpk 00 blood Medical sugars Branch once daily for DX E11.40 Insulin 2022-0 Yes [id number] Use as Univ ers [place], 5-24 directed ity of Disposable, 00:00: [place] (COMFORT EZ 00 Medical PEN Branch NEEDLES) 31 gauge x 5/16" Ndle lisinopriL- 3-0 Yes [id number] 1{tbl} Take 1 Univers hydrochloro 5-24 tablet by ity of thiazide 00:00: mouth in [place] 20-25 mg 00 the Medical per tablet morning. Branc h Blood-Gluco 2023-0 Yes [id number] Check U nivers se Meter 5-24 glucose ity of Kit 00:00: once a day [place] 00 or as Medical directed; Branch ICD-10 E11.9 Blood-Gluco 3-0 Yes Use as Univ ers se Meter 5-24 directed ity of Kit 00:00: to check [place] 00 blood Medical sugars Branch once daily for DX E11.40 Lancets & 3-0 Yes Use as Univer s Blood 5-24 directed ity of Glucose 00:00: to check [place] Strips Cmpk 00 blood Medical sugars Branch once daily for DX E11.40 Insulin 3-0 Yes [id number] Use as Univ ers [place], 5-24 directed ity of Disposable, 00:00: [place] (COMFORT EZ 00 Medical PEN Branch NEEDLES) 31 gauge x 5/16" Ndle lisinopriL- 2022-0 Yes [id number] 1{tbl} Take 1 Univers hydrochloro 5-24 tablet by ity of thiazide 00:00: mouth in [place] 20-25 mg 00 the Medical per tablet morning. Branc h Insulin 2022-0 Yes [id number] Use as Univ ers [place], 5-24 directed ity of Disposable, 00:00: [place] (COMFORT EZ 00 Medical PEN Branch NEEDLES) 31 gauge x 5/16" Ndle lisinopriL- 2022-0 Yes [id number] 1{tbl} Take 1 Univers hydrochloro 5-24 tablet by ity of thiazide 00:00: mouth in [place] 20-25 mg 00 the Medical per tablet morning. Branc h Blood-Gluco 2022-0 Yes [id number] Check U nivers se Meter 5-24 glucose ity of Kit 00:00: once a day [place] 00 or as Medical directed; Branch ICD-10 E11.9 Insulin 2022-0 Yes [id number] Use as Univ ers [place], 5-24 directed ity of Disposable, 00:00: [place] (COMFORT EZ 00 Medical PEN Branch NEEDLES) 31 gauge x 5/16" Ndle lisinopriL- 2022-0 Yes [id number] 1{tbl} Take 1 Univers hydrochloro 5-24 tablet by ity of thiazide 00:00: mouth in [place] 20-25 mg 00 the Medical per tablet morning. Branc h Blood-Gluco 2022-0 Yes [id number] Check U nivers se Meter 5-24 glucose ity of Kit 00:00: once a day [place] 00 or as Medical directed; Branch ICD-10 E11.9 Insulin 2022-0 Yes [id number] Use as Univ ers [place], 5-24 directed ity of Disposable, 00:00: [place] (COMFORT EZ 00 Medical PEN Branch NEEDLES) 31 gauge x 5/16" Ndle lisinopriL- 2023-0 Yes [id number] 1{tbl} Take 1 Univers hydrochloro 5-24 tablet by ity of thiazide 00:00: mouth in [place] 20-25 mg 00 the Medical per tablet morning. Branc h Insulin 2022-0 Yes [id number] Use as Univ ers [place], 5-24 directed ity of Disposable, 00:00: [place] (COMFORT EZ 00 Medical PEN Branch NEEDLES) 31 gauge x 5/16" Ndle lisinopriL- 2022-0 Yes [id number] 1{tbl} Take 1 Univers hydrochloro 5-24 tablet by ity of thiazide 00:00: mouth in [place] 20-25 mg 00 the Medical per tablet morning. [facility] h Insulin 2022-0 Yes [id number] Use as Univ ers [place], 5-24 directed ity of Disposable, 00:00: [place] (COMFORT EZ 00 Medical PEN Branch NEEDLES) 31 gauge x 5/16" Ndle lisinopriL- 2022-0 Yes [id number] 1{tbl} Take 1 Univers hydrochloro 5-24 tablet by ity of thiazide 00:00: mouth in [place] 20-25 mg 00 the Medical per tablet morning. [facility] h Blood-Gluco 2022-0 Yes [id number] Check U nivers se Meter 5-24 glucose ity of Kit 00:00: once a day [place] 00 or as Medical directed; Branch ICD-10 E11.9 Blood-Gluco 2022-0 Yes Use as Univ ers se Meter 5-24 directed ity of Kit 00:00: to check [place] 00 blood Medical sugars Branch once daily for DX E11.40 Lancets & 2022-0 Yes Use as Univer s Blood 5-24 directed ity of Glucose 00:00: to check [place] Strips [facility] 00 blood Medical sugars Branch once daily for DX E11.40 gabapentin 2022-0 Yes [id number] 400mg Take 1 Univers 400 mg 5-19 capsule by ity of capsule 00:00: mouth 2 [place] 00 (two) Medical times Branch daily as needed for Pain (scale 4-6). flash 2022-0 Yes [id number] 1{kit} 1 Kit Unive rs glucose 5-19 before ity of sensor 00:00: meals and [place] (FREESTYLE 00 at [facility] KEVIN 2 bedtime. Branch SENSOR) Kit flash 2022-0 Yes [id number] 1{each} 1 Each Uni vers glucose 5-19 before ity of scanning 00:00: [place] 00 at [facility] (FREEYLE bedtime. Bran h KEVIN 2 READER) Misc gabapentin 2022-0 Yes [id number] 400mg Take 1 Univers 400 mg 5-19 capsule by ity of capsule 00:00: mouth 2 [place] 00 (two) Medical times Branch daily as needed for Pain (scale 4-6). flash 2023-0 Yes [id number] 1{kit} 1 Kit Unive rs glucose 5-19 before ity of sensor 00:00: meals and [place] (FREESTYLE 00 at [facility] KEVIN 2 bedtime. Branch SENSOR) Kit flash 2023-0 Yes [id number] 1{each} 1 Each Uni vers glucose 5-19 before ity of scanning 00:00: [place] reader 00 [place] [facility] (FREESTYLE bedtime. Branc h KEVIN 2 READER) Misc gabapentin 2023-0 Yes [id number] 400mg Take 1 Univers 400 mg 5-19 capsule by ity of capsule 00:00: mouth 2 [place] 00 (two) Medical times Branch daily as needed for Pain (scale 4-6). flash 2023-0 Yes [id number] 1{kit} 1 Kit Unive rs glucose 5-19 before ity of sensor 00:00: meals and [place] (FREESTYLE 00 at [facility] KEVIN 2 bedtime. Branch SENSOR) Kit flash 3-0 Yes [id number] 1{each} 1 Each Uni vers glucose 5-19 before ity of scanning 00:00: [place] 00 [place] [facility] (FREESTYLE bedtime. Branc h KEVIN 2 READER) Misc gabapentin 2023-0 Yes [id number] 400mg Take 1 Univers 400 mg 5-19 capsule by ity of capsule 00:00: mouth 2 [place] 00 (two) Medical times Branch daily as needed for Pain (scale 4-6). flash 2023-0 Yes [id number] 1{kit} 1 Kit Unive rs glucose 5-19 before ity of sensor 00:00: meals and [place] (FREESTYLE 00 at [facility] KEVIN 2 bedtime. Branch SENSOR) Kit flash 2023-0 Yes [id number] 1{each} 1 Each Uni vers glucose 5-19 before ity of scanning 00:00: [place] reader 00 at Medical (FREESTYLE bedtime. Branc h KEVIN 2 READER) Misc gabapentin 2023-0 Yes [id number] 400mg Take 1 Univers 400 mg 5-19 capsule by ity of capsule 00:00: mouth 2 [place] 00 (two) Medical times Branch daily as needed for Pain (scale 4-6). flash 2023-0 Yes [id number] 1{kit} 1 Kit Unive rs glucose 5-19 before ity of sensor 00:00: meals and [place] (FREESTYLE 00 at [facility] KEVIN 2 bedtime. Branch SENSOR) Kit flash 2023-0 Yes [id number] 1{each} 1 Each Uni vers glucose 5-19 before ity of scanning 00:00: [place] reader 00 at Medical (FREESTYLE bedtime. Branc h KEVIN 2 READER) Misc gabapentin 2023-0 Yes [id number] 400mg Take 1 Univers 400 mg 5-19 capsule by ity of capsule 00:00: mouth 2 [place] 00 (two) Medical times Branch daily as needed for Pain (scale 4-6). flash 2023-0 Yes [id number] 1{kit} 1 Kit Unive rs glucose 5-19 before ity of sensor 00:00: meals and [place] (FREESTYLE 00 at [facility] KEVIN 2 bedtime. Branch SENSOR) Kit flash 3-0 Yes [id number] 1{each} 1 Each Uni vers glucose 5-19 before ity of scanning 00:00: [place] 00 at Medical (FREESTYLE bedtime. Branc h KEVIN 2 READER) Misc gabapentin 2023-0 Yes [id number] 400mg Take 1 Univers 400 mg 5-19 capsule by ity of capsule 00:00: mouth 2 [place] 00 (two) Medical times [place] daily as needed for Pain (scale 4-6). flash 3-0 Yes [id number] 1{kit} 1 Kit Unive rs glucose 5-19 before ity of sensor 00:00: meals and [place] (FREESTYLE 00 at [facility] KEVIN 2 bedtime. Branch SENSOR) Kit flash 3-0 Yes [id number] 1{each} 1 Each Uni vers glucose 5-19 before ity of scanning 00:00: [place] reader 00 at Medical (FREESTYLE bedtime. Branc h KEVIN 2 READER) Misc gabapentin 2023-0 Yes [id number] 400mg Take 1 Univers 400 mg 5-19 capsule by ity of capsule 00:00: mouth 2 [place] 00 (two) Medical times Branch daily as needed for Pain (scale 4-6). flash 2023-0 Yes [id number] 1{kit} 1 Kit Unive rs glucose 5-19 before ity of sensor 00:00: meals and [place] (FREESTYLE 00 at [facility] KEVIN 2 bedtime. Branch SENSOR) Kit flash 2023-0 Yes [id number] 1{each} 1 Each Uni vers glucose 5-19 before ity of scanning 00:00: [place] reader 00 at Medical (FREESTYLE bedtime. Branc h KEVIN 2 READER) Misc gabapentin 2023-0 Yes [id number] 400mg Take 1 Univers 400 mg 5-19 capsule by ity of capsule 00:00: mouth 2 [place] 00 (two) Medical times Branch daily as needed for Pain (scale 4-6). flash 2023-0 Yes [id number] 1{kit} 1 Kit Unive rs glucose 5-19 before ity of sensor 00:00: meals and [place] (FREESTYLE 00 at [facility] KEVIN 2 bedtime. Branch SENSOR) Kit flash 2023-0 Yes [id number] 1{each} 1 Each Uni vers glucose 5-19 before ity of scanning 00:00: [place] 00 at Medical (FREESTYLE bedtime. Branc h KEVIN 2 READER) Misc gabapentin 2023-0 Yes [id number] 400mg Take 1 Univers 400 mg 5-19 capsule by ity of capsule 00:00: mouth 2 [place] 00 (two) Medical times Branch daily as needed for Pain (scale 4-6). flash 2023-0 Yes [id number] 1{kit} 1 Kit Unive rs glucose 5-19 before ity of sensor 00:00: meals and [place] (FREESTYLE 00 at [facility] KEVIN 2 bedtime. Branch SENSOR) Kit flash 2023-0 Yes [id number] 1{each} 1 Each Uni vers glucose 5-19 before ity of scanning 00:00: [place] 00 at Medical (FREESTYLE bedtime. Branc h KEVIN 2 READER) Misc gabapentin 2023-0 Yes [id number] 400mg Take 1 Univers 400 mg 5-19 capsule by ity of capsule 00:00: mouth 2 [place] 00 (two) Medical times Branch daily as needed for Pain (scale 4-6). flash 2023-0 Yes [id number] 1{kit} 1 Kit Unive rs glucose 5-19 before ity of sensor 00:00: meals and [place] (FREESTYLE 00 at [facility] KEVIN 2 bedtime. Branch SENSOR) Kit flash 2023-0 Yes [id number] 1{each} 1 Each Uni vers glucose 5-19 before ity of scanning 00:00: [place] 00 at Medical (FREESTYLE bedtime. Branc h KEVIN 2 READER) Misc gabapentin 2023-0 Yes [id number] 400mg Take 1 Univers 400 mg 5-19 capsule by ity of capsule 00:00: mouth 2 [place] 00 (two) Medical times Branch daily as needed for Pain (scale 4-6). flash 2023-0 Yes [id number] 1{kit} 1 Kit Unive rs glucose 5-19 before ity of sensor 00:00: meals and [place] (FREESTYLE 00 at [facility] KEVIN 2 bedtime. Branch SENSOR) Kit flash 2023-0 Yes [id number] 1{each} 1 Each Uni vers glucose 5-19 before ity of scanning 00:00: [place] and [place] 00 [place] [facility] (FREESTYLE bedtime. Branc h KEVIN 2 READER) Misc gabapentin 2023-0 Yes [id number] 400mg Take 1 Univers 400 mg 5-19 capsule by ity of capsule 00:00: mouth 2 [place] 00 (two) Medical times [place] daily as needed for Pain (scale 4-6). flash 2023-0 Yes [id number] 1{kit} 1 Kit Unive rs glucose 5-19 before ity of sensor 00:00: meals and [place] (FREESTYLE 00 at [facility] 2 bedtime. Branch SENSOR) Kit flash 2023-0 Yes [id number] 1{each} 1 Each Uni vers glucose 5-19 before ity of scanning 00:00: [place] and [place] 00 at [facility] (FREESTYLE bedtime. Branc h KEVIN 2 READER) Misc gabapentin 2023-0 Yes [id number] 400mg Take 1 Univers 400 mg 5-19 capsule by ity of capsule 00:00: mouth 2 [place] 00 (two) Medical times [place] daily as needed for Pain (scale 4-6). flash 2023-0 Yes [id number] 1{kit} 1 Kit Unive rs glucose 5-19 before ity of sensor 00:00: meals and [place] (FREESTYLE 00 at [facility] KEVIN 2 bedtime. Branch SENSOR) Kit flash 2023-0 Yes [id number] 1{each} 1 Each Uni vers glucose 5-19 before ity of scanning 00:00: [place] 00 at Medical (FREESTYLE bedtime. Branc h KEVIN 2 READER) Misc gabapentin 2023-0 Yes [id number] 400mg Take 1 Univers 400 mg 5-19 capsule by ity of capsule 00:00: mouth 2 [place] 00 (two) Medical times Branch daily as needed for Pain (scale 4-6). flash 2023-0 Yes [id number] 1{kit} 1 Kit Unive rs glucose 5-19 before ity of sensor 00:00: meals and [place] (FREESTYLE 00 at Medical KEVIN 2 bedtime. Branch SENSOR) Kit flash 3-0 Yes [id number] 1{each} 1 Each Uni vers glucose 5-19 before ity of scanning 00:00: [place] 00 at Medical (FREESTYLE bedtime. Branc h KEVIN 2 READER) Misc Blood-Gluco 2023-0 Yes Use as Univ ers se Meter 5-17 directed, ity of Kit 00:00: once a day [place] 00 to monitor Medical blood Branch glucose for ICD code E11.9 Blood-Gluco 3-0 Yes Use as Univ ers se Meter 5-17 directed, ity of Kit 00:00: once a day [place] 00 to monitor Medical blood Branch glucose for ICD code E11.9 Blood-Gluco 2023-0 Yes Use as Univ ers se Meter 5-17 directed, ity of Kit 00:00: once a day [place] 00 to monitor Medical blood Branch glucose for ICD code E11.9 Blood-Gluco 2023-0 2022- No Use as Uni vers se Meter 5-24 directed, ity o f Kit 00:00: 00:00 once a day [place] 00 :00 to monitor Medical blood Branch glucose for ICD code E11.9 Blood-Gluco 2023-0 2022- No Use as Uni vers se Meter 5-17 24 directed, ity o f Kit 00:00: 00:00 once a day [place] 00 :00 to monitor Medical blood Branch glucose for ICD code E11.9 Blood-Gluco 2023-0 2022- No Use as Uni vers se Meter 5-17 24 directed, ity o f Kit 00:00: 00:00 once a day [place] 00 :00 to monitor Medical blood Branch glucose for ICD code E11.9 Blood-Gluco 2023-0 2022- No Use as Uni vers se Meter 517 [id number] directed, ity o f Kit 00:00: 00:00 once a day [place] 00 :00 to monitor Medical blood Branch glucose for ICD code E11.9 insulin 0 Yes [id number] 60U inject 60 U nivers detemir 5-12 Units ity of U-100 00:00: under the [place] (LEVEMIR 00 skin in Medical U-100 the Branch INSULIN) morning. 100 unit/mL injection lancets 0 Yes [id number] Check Unive rs (TECHLITE 5-12 FASTING ity of LANCETS) 28 00:00: BLOOD [place] gauge Misc 00 SUGAR Medical DAILY Branch blood sugar 0 Yes [id number] Check U nivers diagnostic 5-12 fasting ity of (GLUCOCARD 00:00: BLOOD [place] SHINE TEST 00 SUGAR Medical STRIPS) DAILY Branch strip insulin Yes [id number] 60U inject 60 U nivers detemir 5-12 Units ity of U-100 00:00: under the [place] (LEVEMIR 00 skin in Medical U-100 the Branch INSULIN) morning. 100 unit/mL injection lancets 0 Yes [id number] Check Unive rs (TECHLITE 5-12 FASTING ity of LANCETS) 28 00:00: BLOOD [place] gauge Misc 00 SUGAR Medical DAILY Branch blood sugar 0 Yes [id number] Check U nivers diagnostic 5-12 fasting ity of (GLUCOCARD 00:00: BLOOD [place] SHINE TEST 00 SUGAR Medical STRIPS) DAILY Branch strip insulin 0 Yes [id number] 60U inject 60 U nivers detemir 5-12 Units ity of U-100 00:00: under the [place] (LEVEMIR 00 skin in Medical U-100 the Branch INSULIN) morning. 100 unit/mL injection lancets 0 Yes [id number] Check Unive rs (TECHLITE 5-12 FASTING ity of LANCETS) 28 00:00: BLOOD [place] gauge Misc 00 SUGAR Medical DAILY Branch blood sugar 2022-0 Yes [id number] Check U nivers diagnostic 5-12 fasting ity of (GLUCOCARD 00:00: BLOOD [place] SHINE TEST 00 SUGAR Medical STRIPS) DAILY Branch strip insulin 2022-0 Yes [id number] 60U inject 60 U nivers detemir 5-12 Units ity of U-100 00:00: under the [place] (LEVEMIR 00 skin in Medical U-100 the Branch INSULIN) morning. 100 unit/mL injection lancets 0 Yes [id number] Check Unive rs (TECHLITE 5-12 FASTING ity of LANCETS) 28 00:00: BLOOD [place] gauge Misc 00 SUGAR Medical DAILY Branch blood sugar 0 Yes [id number] Check U nivers diagnostic 5-12 fasting ity of (GLUCOCARD 00:00: BLOOD [place] SHINE TEST 00 SUGAR Medical STRIPS) DAILY Branch strip insulin 0 Yes [id number] 60U inject 60 U nivers detemir 5-12 Units ity of U-100 00:00: under the [place] (LEVEMIR 00 skin in Medical U-100 the Branch INSULIN) morning. 100 unit/mL injection lancets 0 Yes [id number] Check Unive rs (TECHLITE 5-12 FASTING ity of LANCETS) 28 00:00: BLOOD [place] gauge Misc 00 SUGAR Medical DAILY Branch blood sugar 0 Yes [id number] Check U nivers diagnostic 5-12 fasting ity of (GLUCOCARD 00:00: BLOOD [place] SHINE TEST 00 SUGAR Medical STRIPS) DAILY Branch strip insulin Yes [id number] 60U inject 60 U nivers detemir 5-12 Units ity of U-100 00:00: under the [place] (LEVEMIR 00 skin in Medical U-100 the Branch INSULIN) morning. 100 unit/mL injection lancets 0 Yes [id number] Check Unive rs (TECHLITE 5-12 FASTING ity of LANCETS) 28 00:00: BLOOD [place] gauge Misc 00 SUGAR Medical DAILY Branch blood sugar 0 Yes [id number] Check U nivers diagnostic 5-12 fasting ity of (GLUCOCARD 00:00: BLOOD [place] SHINE TEST 00 SUGAR Medical STRIPS) DAILY Branch strip insulin 0 Yes [id number] 60U inject 60 U nivers detemir 5-12 Units ity of U-100 00:00: under the [place] (LEVEMIR 00 skin in Medical U-100 the Branch INSULIN) morning. 100 unit/mL injection lancets 0 Yes [id number] Check Unive rs (TECHLITE 5-12 FASTING ity of LANCETS) 28 00:00: BLOOD [place] gauge Misc 00 SUGAR Medical DAILY Branch blood sugar 0 Yes [id number] Check U nivers diagnostic 5-12 fasting ity of (GLUCOCARD 00:00: BLOOD [place] SHINE TEST 00 SUGAR Medical STRIPS) DAILY Branch strip insulin Yes [id number] 60U inject 60 U nivers detemir 5-12 Units ity of U-100 00:00: under the [place] (LEVEMIR 00 skin in Medical U-100 the Branch INSULIN) morning. 100 unit/mL injection lancets 0 Yes [id number] Check Unive rs (TECHLITE 5-12 FASTING ity of LANCETS) 28 00:00: BLOOD [place] gauge Misc 00 SUGAR Medical DAILY Branch blood sugar Yes [id number] Check U nivers diagnostic 5-12 fasting ity of (GLUCOCARD 00:00: BLOOD [place] SHINE TEST 00 SUGAR Medical STRIPS) DAILY Branch strip insulin Yes [id number] 60U inject 60 U nivers detemir 5-12 Units ity of U-100 00:00: under the [place] (LEVEMIR 00 skin in Medical U-100 the Branch INSULIN) morning. 100 unit/mL injection lancets Yes [id number] Check Unive rs (TECHLITE 5-12 FASTING ity of LANCETS) 28 00:00: BLOOD [place] gauge Misc 00 SUGAR Medical DAILY Branch blood sugar Yes [id number] Check U nivers diagnostic 5-12 fasting ity of (GLUCOCARD 00:00: BLOOD [place] SHINE TEST 00 SUGAR Medical STRIPS) DAILY Branch strip insulin Yes [id number] 60U inject 60 U nivers detemir 5-12 Units ity of U-100 00:00: under the [place] (LEVEMIR 00 skin in Medical U-100 the Branch INSULIN) morning. 100 unit/mL injection Blood-Gluco Yes [id number] Use as Univers se Meter 5-12 directed ity of (GLUCOCARD 00:00: [place] SHINE 00 Medical METER) Misc Branch lancets Yes [id number] Check Unive rs (TECHLITE 5-12 FASTING ity of LANCETS) 28 00:00: BLOOD [place] gauge Misc 00 SUGAR Medical DAILY Branch blood sugar 0 Yes [id number] Check U nivers diagnostic 5-12 fasting ity of (GLUCOCARD 00:00: BLOOD [place] SHINE TEST 00 SUGAR Medical STRIPS) DAILY Branch strip insulin Yes [id number] 60U inject 60 U nivers detemir 5-12 Units ity of U-100 00:00: under the [place] (LEVEMIR 00 skin in Medical U-100 the Branch INSULIN) morning. 100 unit/mL injection Blood-Gluco Yes [id number] Use as Univers se Meter 5-12 directed ity of (GLUCOCARD 00:00: [place] SHINE 00 Medical METER) Misc Branch lancets Yes [id number] Check Unive rs (TECHLITE 5-12 FASTING ity of LANCETS) 28 00:00: BLOOD [place] gauge Misc 00 SUGAR Medical DAILY Branch blood sugar Yes [id number] Check U nivers diagnostic 5-12 fasting ity of (GLUCOCARD 00:00: BLOOD [place] SHINE TEST 00 SUGAR Medical STRIPS) DAILY Branch strip insulin Yes [id number] 60U inject 60 U nivers detemir 5-12 Units ity of U-100 00:00: under the [place] (LEVEMIR 00 skin in Medical U-100 the Branch INSULIN) morning. 100 unit/mL injection Blood-Gluco Yes [id number] Use as Univers se Meter 5-12 directed ity of (GLUCOCARD 00:00: [place] SHINE 00 Medical METER) Misc Branch lancets Yes [id number] Check Unive rs (TECHLITE 5-12 FASTING ity of LANCETS) 28 00:00: BLOOD [place] gauge Misc 00 SUGAR Medical DAILY Branch blood sugar 0 Yes [id number] Check U nivers diagnostic 5-12 fasting ity of (GLUCOCARD 00:00: BLOOD [place] SHINE TEST 00 SUGAR Medical STRIPS) DAILY Branch strip insulin Yes [id number] 60U inject 60 U nivers detemir 5-12 Units ity of U-100 00:00: under the [place] (LEVEMIR 00 skin in Medical U-100 the Branch INSULIN) morning. 100 unit/mL injection Blood-Gluco 0 Yes [id number] Use as Univers se Meter 5-12 directed ity of (GLUCOCARD 00:00: [place] SHINE 00 Medical METER) Misc Branch lancets 0 Yes [id number] Check Unive rs (TECHLITE 5-12 FASTING ity of LANCETS) 28 00:00: BLOOD [place] gauge Misc 00 SUGAR Medical DAILY Branch blood sugar 0 Yes [id number] Check U nivers diagnostic 5-12 fasting ity of (GLUCOCARD 00:00: BLOOD [place] SHINE TEST 00 SUGAR Medical STRIPS) DAILY Branch strip insulin 0 Yes [id number] 60U inject 60 U nivers detemir 5-12 Units ity of U-100 00:00: under the [place] (LEVEMIR 00 skin in Medical U-100 the Branch INSULIN) morning. 100 unit/mL injection lancets 0 Yes [id number] Check Unive rs (TECHLITE 5-12 FASTING ity of LANCETS) 28 00:00: BLOOD [facility] [facility] 00 SUGAR Medical DAILY Branch blood sugar 0 Yes [id number] Check U nivers diagnostic 5-12 fasting ity of (GLUCOCARD 00:00: BLOOD [place] SHINE TEST 00 SUGAR Medical STRIPS) DAILY Branch strip insulin 0 Yes [id number] 60U inject 60 U nivers detemir 5-12 Units ity of U-100 00:00: under the [place] (LEVEMIR 00 skin in Medical U-100 the Branch INSULIN) morning. 100 unit/mL injection lancets 0 Yes [id number] Check Unive rs (TECHLITE 5-12 FASTING ity of LANCETS) 28 00:00: BLOOD [facility] [facility] 00 SUGAR Medical DAILY Branch blood sugar 0 Yes [id number] Check U nivers diagnostic 5-12 fasting ity of (GLUCOCARD 00:00: BLOOD [place] SHINE TEST 00 SUGAR Medical STRIPS) DAILY Branch strip insulin 0 Yes [id number] 60U inject 60 U nivers detemir 5-12 Units ity of U-100 00:00: under the [place] (LEVEMIR 00 skin in Medical U-100 the Branch INSULIN) morning. 100 unit/mL injection lancets 0 Yes [id number] Check Unive rs (TECHLITE 5-12 FASTING ity of LANCETS) 28 00:00: BLOOD [facility] [facility] 00 SUGAR Medical DAILY Branch blood sugar 0 Yes [id number] Check U nivers diagnostic 5-12 fasting ity of (GLUCOCARD 00:00: BLOOD [place] SHINE TEST 00 SUGAR Medical STRIPS) DAILY Branch strip insulin 0 Yes [id number] 60U inject 60 U nivers detemir 5-12 Units ity of U-100 00:00: under the [place] (LEVEMIR 00 skin in Medical U-100 the Branch INSULIN) morning. 100 unit/mL injection lancets 2022-0 Yes [id number] Check Unive rs (TECHLITE 5-12 FASTING ity of LANCETS) 28 00:00: BLOOD [place] gauge Misc 00 SUGAR Medical DAILY Branch blood sugar 2022-0 Yes [id number] Check U nivers diagnostic 5-12 fasting ity of (GLUCOCARD 00:00: BLOOD [place] SHINE TEST 00 SUGAR Medical STRIPS) DAILY Branch strip insulin 0 Yes [id number] 60U inject 60 U nivers detemir 5-12 Units ity of U-100 00:00: under the [place] (LEVEMIR 00 skin in Medical U-100 the Branch INSULIN) morning. 100 unit/mL injection lancets 0 Yes [id number] Check Unive rs (TECHLITE 5-12 FASTING ity of LANCETS) 28 00:00: BLOOD [facility] [facility] 00 SUGAR Medical DAILY Branch blood sugar 0 Yes [id number] Check U nivers diagnostic 5-12 fasting ity of (GLUCOCARD 00:00: BLOOD [place] SHINE TEST 00 SUGAR Medical STRIPS) DAILY Branch strip insulin 0 Yes [id number] 60U inject 60 U nivers detemir 5-12 Units ity of U-100 00:00: under the [place] (LEVEMIR 00 skin in Medical U-100 the Branch INSULIN) morning. 100 unit/mL injection lancets 2022-0 Yes [id number] Check Unive rs (TECHLITE 5-12 FASTING ity of LANCETS) 28 00:00: BLOOD [place] gauge Misc 00 SUGAR Medical DAILY Branch blood sugar 2022-0 Yes [id number] Check U nivers diagnostic 5-12 fasting ity of (GLUCOCARD 00:00: BLOOD [place] SHINE TEST 00 SUGAR Medical STRIPS) DAILY Branch strip insulin 2022-0 Yes [id number] 60U inject 60 U nivers detemir 5-12 Units ity of U-100 00:00: under the [place] (LEVEMIR 00 skin in Medical U-100 the Branch INSULIN) morning. 100 unit/mL injection lancets 2022-0 Yes [id number] Check Unive rs (TECHLITE 5-12 FASTING ity of LANCETS) 28 00:00: BLOOD [place] gauge Misc 00 SUGAR Medical DAILY Branch blood sugar 2022-0 Yes [id number] Check U nivers diagnostic 5-12 fasting ity of (GLUCOCARD 00:00: BLOOD [place] SHINE TEST 00 SUGAR Medical STRIPS) DAILY Branch strip insulin 2022-0 Yes [id number] 60U inject 60 U nivers detemir 5-12 Units ity of U-100 00:00: under the [place] (LEVEMIR 00 skin in Medical U-100 the Branch INSULIN) morning. 100 unit/mL injection lancets 2022-0 Yes [id number] Check Unive rs (TECHLITE 5-12 FASTING ity of LANCETS) 28 00:00: BLOOD [facility] [facility] 00 SUGAR Medical DAILY Branch blood sugar 0 Yes [id number] Check U nivers diagnostic 5-12 fasting ity of (GLUCOCARD 00:00: BLOOD [place] SHINE TEST 00 SUGAR Medical STRIPS) DAILY Branch strip insulin 0 Yes [id number] 60U inject 60 U nivers detemir 5-12 Units ity of U-100 00:00: under the [place] (LEVEMIR 00 skin in Medical U-100 the Branch INSULIN) morning. 100 unit/mL injection lancets 2022-0 Yes [id number] Check Unive rs (TECHLITE 5-12 FASTING ity of LANCETS) 28 00:00: BLOOD [facility] [facility] 00 SUGAR Medical DAILY Branch blood sugar 2022-0 Yes [id number] Check U nivers diagnostic 5-12 fasting ity of (GLUCOCARD 00:00: BLOOD [place] SHINE TEST 00 SUGAR Medical STRIPS) DAILY Branch strip insulin 2022-0 Yes [id number] 60U inject 60 U nivers detemir 5-12 Units ity of U-100 00:00: under the [place] (LEVEMIR 00 skin in Medical U-100 the Branch INSULIN) morning. 100 unit/mL injection lancets 2022-0 Yes [id number] Check Unive rs (TECHLITE 5-12 FASTING ity of LANCETS) 28 00:00: BLOOD [place] [facility] Misc 00 SUGAR Medical DAILY Branch blood sugar 2022-0 Yes [id number] Check U nivers diagnostic 5-12 fasting ity of (GLUCOCARD 00:00: BLOOD [place] SHINE TEST 00 SUGAR Medical STRIPS) DAILY Branch strip insulin 2022-0 Yes [id number] 60U inject 60 U nivers detemir 5-12 Units ity of U-100 00:00: under the [place] (LEVEMIR 00 skin in Medical U-100 the Branch INSULIN) morning. 100 unit/mL injection lancets Yes [id number] Check Unive rs (TECHLITE 5-12 FASTING ity of LANCETS) 28 00:00: BLOOD [place] gauge Misc 00 SUGAR Medical DAILY Branch blood sugar Yes [id number] Check U nivers diagnostic 5-12 fasting ity of (GLUCOCARD 00:00: BLOOD [place] SHINE TEST 00 SUGAR Medical STRIPS) DAILY Branch strip insulin Yes [id number] 60U inject 60 U nivers detemir 5-12 Units ity of U-100 00:00: under the [place] (LEVEMIR 00 skin in Medical U-100 the Branch INSULIN) morning. 100 unit/mL injection lancets Yes [id number] Check Unive rs (TECHLITE 5-12 FASTING ity of LANCETS) 28 00:00: BLOOD [place] gauge Misc 00 SUGAR Medical DAILY Branch blood sugar Yes [id number] Check U nivers diagnostic 5-12 fasting ity of (GLUCOCARD 00:00: BLOOD [place] SHINE TEST 00 SUGAR Medical STRIPS) DAILY Branch strip amoxicillin 2022- Yes [id number] 1{tbl} Take 1 Univers -clavulanat 5-12 05-20 tablet by it y of e 00:00: 04:59 mouth in [place] (AUGMENTIN) 00 :00 the Medical 875-125 mg morning Branch per tablet and 1 tablet in the evening. Do all this for 7 days. amoxicillin 2022- Yes [id number] 1{tbl} Take 1 Univers -clavulanat 5-12 05-20 tablet by it y of e 00:00: 04:59 mouth in [place] (AUGMENTIN) 00 :00 the Medical 875-125 mg morning Branch per tablet and 1 tablet in the evening. Do all this for 7 days. amoxicillin 2022- Yes [id number] 1{tbl} Take 1 Univers -clavulanat 5-12 05-20 tablet by it y of e 00:00: 04:59 mouth in [place] (AUGMENTIN) 00 :00 the Medical 875-125 mg morning Branch per tablet and 1 tablet in the evening. Do all this for 7 days. amoxicillin 2022- Yes [id number] 1{tbl} Take 1 Univers -clavulanat 5-12 05-20 tablet by it y of e 00:00: 04:59 mouth in [place] (AUGMENTIN) 00 :00 the Medical 875-125 mg morning Branch per tablet and 1 tablet in the evening. Do all this for 7 days. amoxicillin 2022- Yes [id number] 1{tbl} Take 1 Univers -clavulanat 5-12 05-20 tablet by it y of e 00:00: 04:59 mouth in [place] (AUGMENTIN) 00 :00 the Medical 875-125 mg morning Branch per tablet and 1 tablet in the evening. Do all this for 7 days. amoxicillin 2022- Yes [id number] 1{tbl} Take 1 Univers -clavulanat 5-12 05-20 tablet by it y of e 00:00: 04:59 mouth in [place] (AUGMENTIN) 00 :00 the Medical 875-125 mg morning Branch per tablet and 1 tablet in the evening. Do all this for 7 days. amoxicillin 2022- Yes [id number] 1{tbl} Take 1 Univers -clavulanat 5-12 05-20 tablet by it y of e 00:00: 04:59 mouth in [place] (AUGMENTIN) 00 :00 the Medical 875-125 mg morning Branch per tablet and 1 tablet in the evening. Do all this for 7 days. amoxicillin 2022- Yes [id number] 1{tbl} Take 1 Univers -clavulanat 5-12 05-20 tablet by it y of e 00:00: 04:59 mouth in [place] (AUGMENTIN) 00 :00 the Medical 875-125 mg morning Branch per tablet and 1 tablet in the evening. Do all this for 7 days. amoxicillin 2022- Yes [id number] 1{tbl} Take 1 Univers -clavulanat 5-12 05-20 tablet by it y of e 00:00: 04:59 mouth in [place] (AUGMENTIN) 00 :00 the Medical 875-125 mg morning Branch per tablet and 1 tablet in the evening. Do all this for 7 days. amoxicillin 2022- Yes [id number] 1{tbl} Take 1 Univers -clavulanat 5-12 05-20 tablet by it y of e 00:00: 04:59 mouth in [place] (AUGMENTIN) 00 :00 the Medical 875-125 mg morning Branch per tablet and 1 tablet in the evening. Do all this for 7 days. Blood-Gluco 2022-0 2022- No [id number] Use as Univers se Meter 04-07 directed ity of (GLUCOCARD 00:00: 00:00 [place] SHINE 00 :00 Medical METER) Mis Branch Blood-Gluco 2022-0 2022- No [id number] Use as Univers se Meter 04-07 directed ity of (GLUCOCARD 00:00: 00:00 [place] SHINE 00 :00 Medical METER) Misc Branch Blood-Gluco 2022-0 2022- No [id number] Use as Univers se Meter 04-07 directed ity of (GLUCOCARD 00:00: 00:00 [place] SHINE 00 :00 Medical METER) Mis Branch Blood-Gluco 2022-0 2022- No [id number] Use as Univers se Meter 04-07 directed ity of (GLUCOCARD 00:00: 00:00 [place] SHINE 00 :00 Medical METER) Misc Branch Blood-Gluco 2022-0 2022- No [id number] Use as Univers se Meter 04-07 directed ity of (GLUCOCARD 00:00: 00:00 [place] SHINE 00 :00 Medical METER) Misc Branch Insulin 2022- Yes [id number] 60U inject 60 U nivers Glargine 5-08 Units ity of (LANTUS 00:00: under the [facility] 00 skin in Medical U-100 the Branch INSULIN) morning. 100 unit/mL (3 mL) injection Insulin 2022- No [id number] 60U inject 60 Univers Glargine 5-08 05-12 Units ity of (LANTUS 00:00: 00:00 under the [facility] SOLOSTAR 00 :00 skin in Medical U-100 the Branch INSULIN) morning. 100 unit/mL (3 mL) injection Insulin 2022-0 2022- No [id number] 60U inject 60 Univers Glargine 5-08 05-12 Units ity of (LANTUS 00:00: 00:00 under the [facility] SOLOSTAR 00 :00 skin in Medical U-100 the Branch INSULIN) morning. 100 unit/mL (3 mL) injection Insulin 2022- No [id number] 60U inject 60 Univers Glargine 04-03 05-12 Units ity of (LANTUS 00:00: 00:[place] SOL[place] 00 :00 skin in Medical U-100 the Branch INSULIN) morning. 100 unit/mL (3 mL) injection insulin 2022- No as Univers degludec 03-27 directed ity of 100 unit/mL 11:33: 00:00 [facility] 07 :00 Medical Branch insulin 2022- No as [facility] [place] [facility] degludec 03-27 directed ity of 100 unit/mL 11:33: 00:00 [facility] 07 :00 Medical Branch atorvastati 2022-0 Yes [id number] 40mg Take 1 Univers n 40 mg 5-01 tablet by ity of tablet 00:00: mouth at [place] [address] bedtime. Medical Branch metFORMIN 2022-0 Yes [id number] 1000mg Take 1 Univers 1,000 mg 5-01 tablet by ity of tablet 00:00: mouth in [place] [address] the [facility] morning Branch and 1 tablet in the evening. Take with meals. atorvastati 2022-0 Yes [id number] 40mg Take 1 Univers n 40 mg 5-01 tablet by ity of tablet 00:00: mouth at [place] [address] bedtime. Medical Branch metFORMIN 2022-0 Yes [id number] 1000mg Take 1 Univers 1,000 mg 5-01 tablet by ity of tablet 00:00: mouth in [place] [address] the [facility] morning Branch and 1 tablet in the evening. Take with meals. atorvastati 2022-0 Yes [id number] 40mg Take 1 Univers n 40 mg 5-01 tablet by ity of tablet 00:00: mouth at [place] [address] bedtime. Medical Branch metFORMIN 2022-0 Yes [id number] 1000mg Take 1 Univers 1,000 mg 5-01 tablet by ity of tablet 00:00: mouth in [place] [address] the [facility] morning Branch and 1 tablet in the evening. Take with meals. atorvastati 2022-0 Yes [id number] 40mg Take 1 Univers n 40 mg 5-01 tablet by ity of tablet 00:00: mouth at [place] 00 bedtime. Medical Branch metFORMIN 2023-0 Yes [id number] 1000mg Take 1 Univers 1,000 mg 5-01 tablet by ity of tablet 00:00: mouth in [place] 00 the Medical morning Branch and 1 tablet in the evening. Take with meals. atorvastati 3-0 Yes [id number] 40mg Take 1 Univers n 40 mg 5-01 tablet by ity of tablet 00:00: mouth at [place] [address] bedtime. Medical Branch metFORMIN 2023-0 Yes [id number] 1000mg Take 1 Univers 1,000 mg 5-01 tablet by ity of tablet 00:00: mouth in [place] 00 the [facility] morning Branch and 1 tablet in the evening. Take with meals. atorvastati 3-0 Yes [id number] 40mg Take 1 Univers n 40 mg 5-01 tablet by ity of tablet 00:00: mouth at [place] [address] bedtime. Medical Branch metFORMIN 3-0 Yes [id number] 1000mg Take 1 Univers 1,000 mg 5-01 tablet by ity of tablet 00:00: mouth in [place] 00 the [facility] morning [place] and 1 tablet in the evening. Take with meals. atorvastati 3-0 Yes [id number] 40mg Take 1 Univers n 40 mg 5-01 tablet by ity of tablet 00:00: mouth at [place] [address] bedtime. Medical Branch metFORMIN 3-0 Yes [id number] 1000mg Take 1 Univers 1,000 mg 5-01 tablet by ity of tablet 00:00: mouth in [place] 00 the [facility] and 1 tablet in the evening. Take with meals. atorvastati 3-0 Yes [id number] 40mg Take 1 Univers n 40 mg 5-01 tablet by ity of tablet 00:00: mouth at [place] [address] bedtime. Medical Branch metFORMIN 2023-0 Yes [id number] 1000mg Take 1 Univers 1,000 mg 5-01 tablet by ity of tablet 00:00: mouth in [place] 00 the [facility] morning Branch and 1 tablet in the evening. Take with meals. atorvastati 2023-0 Yes [id number] 40mg Take 1 Univers n 40 mg 5-01 tablet by ity of tablet 00:00: mouth at [place] [address] bedtime. Medical Branch metFORMIN 2023-0 Yes [id number] 1000mg Take 1 Univers 1,000 mg 5-01 tablet by ity of tablet 00:00: mouth in [place] 00 the Medical morning Branch and 1 tablet in the evening. Take with meals. atorvastati 2022-0 Yes [id number] 40mg Take 1 Univers n 40 mg 5-01 tablet by ity of tablet 00:00: mouth at [place] [address] bedtime. Medical Branch metFORMIN 2022-0 Yes [id number] 1000mg Take 1 Univers 1,000 mg 5-01 tablet by ity of tablet 00:00: mouth in [place] 00 the Medical morning Branch and 1 tablet in the evening. Take with meals. atorvastati 2022-0 Yes [id number] 40mg Take 1 Univers n 40 mg 5-01 tablet by ity of tablet 00:00: mouth at [place] [address] bedtime. Medical Branch insulin 2022-0 Yes [id number] 60U inject 60 U nivers degludec 5-01 Units ity of (TRESIBA 00:00[place] skin in Medical U-100) 100 the Branch unit/mL (3 morning. mL) InPn metFORMIN 2022-0 Yes [id number] 1000mg Take 1 Univers 1,000 mg 5-01 tablet by ity of tablet 00:00: mouth in [place] [address] the Medical morning Branch and 1 tablet in the evening. Take with meals. atorvastati 2022-0 Yes [id number] 40mg Take 1 Univers n 40 mg 5-01 tablet by ity of tablet 00:00: mouth at [place] [address] bedtime. Medical Branch insulin 2022-0 Yes [id number] 60U inject 60 U nivers degludec 5-01 Units ity of (TRESIBA 00:00[place] skin in Medical U-100) 100 the Branch unit/mL (3 morning. mL) InPn metFORMIN 2022-0 Yes [id number] 1000mg Take 1 Univers 1,000 mg 5-01 tablet by ity of tablet 00:00: mouth in [place] 00 the Medical morning Branch and 1 tablet in the evening. Take with meals. atorvastati 2022-0 Yes [id number] 40mg Take 1 Univers n 40 mg 5-01 tablet by ity of tablet 00:00: mouth at [place] [address] bedtime. Medical Branch insulin 2022-0 Yes [id number] 60U inject 60 U nivers degludec 5-01 Units ity of (TRESIBA 00:00: [place]LE[place] skin in Medical U-100) 100 the Branch unit/mL (3 morning. mL) InPn metFORMIN 2022-0 Yes [id number] 1000mg Take 1 Univers 1,000 mg 5-01 tablet by ity of tablet 00:00: mouth in [place] 00 the [facility] morning Branch and 1 tablet in the evening. Take with meals. atorvastati 2022-0 Yes [id number] 40mg Take 1 Univers n 40 mg 5-01 tablet by ity of tablet 00:00: mouth at [place] [address] bedtime. Medical Branch insulin 2022-0 Yes [id number] 60U inject 60 U nivers degludec 5-01 Units ity of ([place]ESIBA 00:[place]LE[place] skin in Medical U-100) 100 the Branch unit/mL (3 morning. mL) InPn metFORMIN 2022-0 Yes [id number] 1000mg Take 1 Univers 1,000 mg 5-01 tablet by ity of tablet 00:00: mouth in [place] [address] the [facility] morning Branch and 1 tablet in the evening. Take with meals. atorvastati 2022-0 Yes [id number] 40mg Take 1 Univers n 40 mg 5-01 tablet by ity of tablet 00:00: mouth at [place] [address] bedtime. Medical Branch metFORMIN 2022-0 Yes [id number] 1000mg Take 1 Univers 1,000 mg 5-01 tablet by ity of tablet 00:00: mouth in [place] [address] the [facility] morning Branch and 1 tablet in the evening. Take with meals. atorvastati 2022-0 Yes [id number] 40mg Take 1 Univers n 40 mg 5-01 tablet by ity of tablet 00:00: mouth at [place] [address] bedtime. Medical Branch metFORMIN 2022-0 Yes [id number] 1000mg Take 1 Univers 1,000 mg 5-01 tablet by ity of tablet 00:00: mouth in [place] [address] the [facility] morning Branch and 1 tablet in the evening. Take with meals. atorvastati 2022-0 Yes [id number] 40mg Take 1 Univers n 40 mg 5-01 tablet by ity of tablet 00:00: mouth at [place] [address] bedtime. Medical Branch metFORMIN 2022-0 Yes [id number] 1000mg Take 1 [facility] 1,000 mg 5-01 tablet by ity of tablet 00:00: mouth in [place] [address] the [facility] morning [place] and 1 tablet in the evening. Take with meals. atorvastati 3-0 Yes [id number] 40mg Take 1 [facility] n 40 mg 5-01 tablet by ity of tablet 00:00: mouth at [place] [address] bedtime. Medical Branch metFORMIN 3-0 Yes [id number] 1000mg Take 1 [facility] 1,000 mg 5-01 tablet by ity of tablet 00:00: mouth in [place] [address] the [facility] morning [place] and 1 tablet in the evening. Take with meals. atorvastati 2022-0 Yes [id number] 40mg Take 1 [facility] n 40 mg 5-01 tablet by ity of tablet 00:00: mouth at [place] [address] bedtime. Medical Branch metFORMIN 3-0 Yes [id number] 1000mg Take 1 [facility] 1,000 mg 5-01 tablet by ity of tablet 00:00: mouth in [place] [address] the [facility] morning [place] and 1 tablet in the evening. Take with meals. atorvastati 2022-0 Yes [id number] 40mg Take 1 [facility] n 40 mg 5-01 tablet by ity of tablet 00:00: mouth at [place] [address] bedtime. Medical Branch metFORMIN 3-0 Yes [id number] 1000mg Take 1 [facility] 1,000 mg 5-01 tablet by ity of tablet 00:00: mouth in [place] [address] the [facility] morning [place] and 1 tablet in the evening. Take with meals. atorvastati 2022-0 Yes [id number] 40mg Take 1 [facility] n 40 mg 5-01 tablet by ity of tablet 00:00: mouth at [place] [address] bedtime. Medical Branch metFORMIN 3-0 Yes [id number] 1000mg Take 1 [facility] 1,000 mg 5-01 tablet by ity of tablet 00:00: mouth in [place] [address] the [facility] morning [place] and 1 tablet in the evening. Take with meals. atorvastati 3-0 Yes [id number] 40mg Take 1 [facility] n 40 mg 5-01 tablet by ity of tablet 00:00: mouth at [place] [address] bedtime. Medical Branch metFORMIN 3-0 Yes [id number] 1000mg Take 1 [facility] 1,000 mg 5-01 tablet by ity of tablet 00:00: mouth in [place] [address] the [facility] morning [place] and 1 tablet in the evening. Take with meals. atorvastati 3-0 Yes [id number] 40mg Take 1 [facility] n 40 mg 5-01 tablet by ity of tablet 00:00: mouth at [place] [address] bedtime. Medical Branch metFORMIN 3-0 Yes [id number] 1000mg Take 1 [facility] 1,000 mg 5-01 tablet by ity of tablet 00:00: mouth in [place] 00 the Medical morning Branch and 1 tablet in the evening. Take with meals. atorvastati 2022-0 Yes [id number] 40mg Take 1 [facility] n 40 mg 5-01 tablet by ity of tablet 00:00: mouth at [place] [address] bedtime. Medical Branch metFORMIN 3-0 Yes [id number] 1000mg Take 1 [facility] 1,000 mg 5-01 tablet by ity of tablet 00:00: mouth in [place] 00 the Medical morning Branch and 1 tablet in the evening. Take with meals. atorvastati 2022-0 Yes [id number] 40mg Take 1 [facility] n 40 mg 5-01 tablet by ity of tablet 00:00: mouth at [place] [address] bedtime. Medical Branch metFORMIN 2022-0 Yes [id number] 1000mg Take 1 [facility] 1,000 mg 5-01 tablet by ity of tablet 00:00: mouth in [place] [address] the [facility] morning [place] and 1 tablet in the evening. Take with meals. atorvastati 2022-0 Yes [id number] 40mg Take 1 [facility] n 40 mg 5-01 tablet by ity of tablet 00:00: mouth at [place] [address] bedtime. Medical Branch metFORMIN 3-0 Yes [id number] 1000mg Take 1 [facility] 1,000 mg 5-01 tablet by ity of tablet 00:00: mouth in [place] [address] the [facility] morning Branch and 1 tablet in the evening. Take with meals. atorvastati 3-0 Yes [id number] 40mg Take 1 [facility] n 40 mg 5-01 tablet by ity of tablet 00:00: mouth at [place] [address] bedtime. Medical Branch metFORMIN 3-0 Yes [id number] 1000mg Take 1 [facility] 1,000 mg 5-01 tablet by ity of tablet 00:00: mouth in [place] [address] the [facility] morning Branch and 1 tablet in the evening. Take with meals. atorvastati 3-0 Yes [id number] 40mg Take 1 [facility] n 40 mg 5-01 tablet by ity of tablet 00:00: mouth at [place] [address] bedtime. Medical Branch metFORMIN 3-0 Yes [id number] 1000mg Take 1 [facility] 1,000 mg 5-01 tablet by ity of tablet 00:00: mouth in [place] 00 the Medical morning Branch and 1 tablet in the evening. Take with meals. atorvastati 2022-0 Yes [id number] 40mg Take 1 [facility] n 40 mg 5-01 tablet by ity of tablet 00:00: mouth at [place] [address] bedtime. Medical Branch metFORMIN 2022-0 Yes [id number] 1000mg Take 1 [facility] 1,000 mg 5-01 tablet by ity of tablet 00:00: mouth in [place] 00 the [facility] morning Branch and 1 tablet in the evening. Take with meals. atorvastati 2022-0 Yes [id number] 40mg Take 1 [facility] n 40 mg 5-01 tablet by ity of tablet 00:00: mouth at [place] [address] bedtime. Medical Branch metFORMIN 2022-0 Yes [id number] 1000mg Take 1 [facility] 1,000 mg 5-01 tablet by ity of tablet 00:00: mouth in [place] [address] the [facility] morning Branch and 1 tablet in the evening. Take with meals. atorvastati 2022-0 Yes [id number] 40mg Take 1 [facility] n 40 mg 5-01 tablet by ity of tablet 00:00: mouth at [place] [address] bedtime. Medical Branch metFORMIN 2022-0 Yes [id number] 1000mg Take 1 [facility] 1,000 mg 5-01 tablet by ity of tablet 00:00: mouth in [place] [address] the [facility] morning [place] and 1 tablet in the evening. Take with meals. insulin 3- No [id number] 60U inject 60 Univers degludec 03-27 05-08 Units ity of (TRESIBA 00:00: 00:00 under the [place] as FLEXTOUCH 00 :00 skin in [facility] U-100) 100 the Branch unit/mL (3 morning. mL) InPn SERTRALINE 2022-0 Yes [id number] 50mg TAKE 1 Univers 50 mg 3-06 TABLET BY ity of tablet 00:00: MOUTH IN [place] 00 THE Medical MORNING Branch SERTRALINE 2022-0 Yes [id number] 50mg TAKE 1 Univers 50 mg 3-06 TABLET BY ity of tablet 00:00: MOUTH IN [place] [address] THE [facility] MORNING Branch SERTRALINE 2022-0 Yes [id number] 50mg TAKE 1 [facility] 50 mg 3-06 TABLET BY ity of tablet 00:00: MOUTH IN [place] 00 THE Medical MORNING Branch SERTRALINE 3-0 Yes [id number] 50mg TAKE 1 [facility] 50 mg 3-06 TABLET BY ity of tablet 00:00: MOUTH IN [place] 00 THE Medical MORNING Branch SERTRALINE 2022-0 Yes [id number] 50mg TAKE 1 [facility] 50 mg 3-06 TABLET BY ity of tablet 00:00: MOUTH IN [place] 00 THE Medical MORNING Branch SERTRALINE 2022-0 Yes [id number] 50mg TAKE 1 [facility] 50 mg 3-06 TABLET BY ity of tablet 00:00: MOUTH IN [place] 00 THE Medical MORNING Branch SERTRALINE 2022-0 Yes [id number] 50mg TAKE 1 [facility] 50 mg 3-06 TABLET BY ity of tablet 00:00: MOUTH IN [place] 00 THE Medical MORNING Branch SERTRALINE 2022-0 Yes [id number] 50mg TAKE 1 [facility] 50 mg 3-06 TABLET BY ity of tablet 00:00: MOUTH IN [place] 00 THE Medical MORNING Branch SERTRALINE 2022-0 Yes [id number] 50mg TAKE 1 [facility] 50 mg 3-06 TABLET BY ity of tablet 00:00: MOUTH IN [place] 00 THE Medical MORNING Branch SERTRALINE 2022-0 Yes [id number] 50mg TAKE 1 [facility] 50 mg 3-06 TABLET BY ity of tablet 00:00: MOUTH IN [place] 00 THE Medical MORNING Branch SERTRALINE 2022-0 Yes [id number] 50mg TAKE 1 [facility] 50 mg 3-06 TABLET BY ity of tablet 00:00: MOUTH IN [place] 00 THE Medical MORNING Branch SERTRALINE 2022-0 Yes [id number] 50mg TAKE 1 [facility] 50 mg 3-06 TABLET BY ity of tablet 00:00: MOUTH IN [place] 00 THE Medical MORNING Branch SERTRALINE 2022-0 Yes [id number] 50mg TAKE 1 [facility] 50 mg 3-06 TABLET BY ity of tablet 00:00: MOUTH IN [place] 00 THE Medical MORNING Branch SERTRALINE 2022-0 Yes [id number] 50mg TAKE 1 [facility] 50 mg 3-06 TABLET BY ity of tablet 00:00: MOUTH IN [place] 00 THE Medical MORNING Branch SERTRALINE 2022-0 Yes [id number] 50mg TAKE 1 [facility] 50 mg 3-06 TABLET BY ity of tablet 00:00: MOUTH IN [place] 00 THE Medical MORNING Branch SERTRALINE 2022-0 Yes [id number] 50mg TAKE 1 [facility] 50 mg 3-06 TABLET BY ity of tablet 00:00: MOUTH IN [place] 00 THE Medical MORNING Branch SERTRALINE 2022-0 Yes [id number] 50mg TAKE 1 [facility] 50 mg 3-06 TABLET BY ity of tablet 00:00: MOUTH IN [place] 00 THE Medical MORNING Branch SERTRALINE 2022-0 Yes [id number] 50mg TAKE 1 [facility] 50 mg 3-06 TABLET BY ity of tablet 00:00: MOUTH IN [place] 00 THE Medical MORNING Branch SERTRALINE 2022-0 Yes [id number] 50mg TAKE 1 [facility] 50 mg 3-06 TABLET BY ity of tablet 00:00: MOUTH IN [place] 00 THE Medical MORNING Branch SERTRALINE 2022-0 Yes [id number] 50mg TAKE 1 [facility] 50 mg 3-06 TABLET BY ity of tablet 00:00: MOUTH IN [place] 00 THE Medical MORNING Branch SERTRALINE 2022-0 Yes [id number] 50mg TAKE 1 [facility] 50 mg 3-06 TABLET BY ity of tablet 00:00: MOUTH IN [place] 00 THE Medical MORNING Branch SERTRALINE 2022-0 Yes [id number] 50mg TAKE 1 [facility] 50 mg 3-06 TABLET BY ity of tablet 00:00: MOUTH IN [place] 00 THE Medical MORNING Branch SERTRALINE 2022-0 Yes [id number] 50mg TAKE 1 [facility] 50 mg 3-06 TABLET BY ity of tablet 00:00: MOUTH IN [place] 00 THE Medical MORNING Branch SERTRALINE 2022-0 Yes [id number] 50mg TAKE 1 [facility] 50 mg 3-06 TABLET BY ity of tablet 00:00: MOUTH IN [place] 00 THE Medical MORNING Branch SERTRALINE 2022-0 Yes [id number] 50mg TAKE 1 [facility] 50 mg 3-06 TABLET BY ity of tablet 00:00: MOUTH IN [place] 00 THE Medical MORNING Branch SERTRALINE 2022-0 Yes [id number] 50mg TAKE 1 [facility] 50 mg 3-06 TABLET BY ity of tablet 00:00: MOUTH IN [place] 00 THE Medical MORNING Branch SERTRALINE 2022-0 Yes [id number] 50mg TAKE 1 [facility] 50 mg 3-06 TABLET BY ity of tablet 00:00: MOUTH IN [place] 00 THE Medical MORNING Branch SERTRALINE 2022-0 Yes [id number] 50mg TAKE 1 [facility] 50 mg 3-06 TABLET BY ity of tablet 00:00: MOUTH IN [place] 00 THE Medical MORNING Branch SERTRALINE 3-0 Yes [id number] 50mg TAKE 1 [facility] 50 mg 3-06 TABLET BY ity of tablet 00:00: MOUTH IN [place] 00 THE Medical MORNING Branch SERTRALINE 3-0 Yes [id number] 50mg TAKE 1 [facility] 50 mg 3-06 TABLET BY ity of tablet 00:00: MOUTH IN [place] 00 THE Medical MORNING Branch SERTRALINE 3-0 Yes [id number] 50mg TAKE 1 [facility] 50 mg 3-06 TABLET BY ity of tablet 00:00: MOUTH IN [place] 00 THE Medical MORNING Branch SERTRALINE 2022-0 Yes [id number] 50mg TAKE 1 [facility] 50 mg 3-06 TABLET BY ity of tablet 00:00: MOUTH IN [place] 00 THE Medical MORNING Branch SERTRALINE 3-0 Yes [id number] 50mg TAKE 1 [facility] 50 mg 3-06 TABLET BY ity of tablet 00:00: MOUTH IN [place] 00 THE Medical MORNING Branch SERTRALINE 2022-0 Yes [id number] 50mg TAKE 1 [facility] 50 mg 3-06 TABLET BY ity of tablet 00:00: MOUTH IN [place] 00 THE Medical MORNING Branch Blood-Gluco 2022-0 Yes [id number] Use as Univers se Meter 2-20 directed ity of (ULTRATRAK 00:00: [place] GLUCOSE 00 Medical METER) Kit Branch Blood-Gluco 2022-0 Yes [id number] Use as Univers se Meter 2-20 directed ity of (ULTRATRAK 00:00: [place] GLUCOSE 00 Medical METER) Kit Branch Blood-Gluco 2022-0 Yes [id number] Use as Univers se Meter 2-20 directed ity of (ULTRATRAK 00:00: [place] GLUCOSE 00 Medical METER) Kit Branch Blood-Gluco 2022-0 Yes [id number] Use as Univers se Meter 2-20 directed ity of (ULTRATRAK 00:00: [place] GLUCOSE 00 Medical METER) Kit Branch Blood-Gluco 2022-0 Yes [id number] Use as Univers se Meter 2-20 directed ity of (ULTRATRAK 00:00: [place] GLUCOSE 00 Medical METER) Kit Branch Blood-Gluco 2022-0 Yes [id number] Use as Univers se Meter 2-20 directed ity of (ULTRATRAK 00:00: [place] GLUCOSE 00 Medical METER) Kit Branch Blood-Gluco 2022-0 Yes [id number] Use as Univers se Meter 2-20 directed ity of (ULTRATRAK 00:00: [place] GLUCOSE 00 Medical METER) Kit Branch Blood-Gluco 2023-0 Yes [id number] Use as Univers se Meter 2-20 directed ity of (ULTRATRAK 00:00: [place] GLUCOSE 00 Medical METER) Kit Branch Blood-Gluco 3-0 Yes [id number] Use as Univers se Meter 2-20 directed ity of (ULTRATRAK 00:00: [place] GLUCOSE 00 Medical METER) Kit Branch Blood-Gluco 3-0 Yes [id number] Use as Univers se Meter 2-20 directed ity of (ULTRATRAK 00:00: [place] GLUCOSE 00 Medical METER) Kit Branch Blood-Gluco 3-0 Yes [id number] Use as Univers se Meter 2-20 directed ity of (ULTRATRAK 00:00: [place] GLUCOSE 00 Medical METER) Kit Branch Blood-Gluco 3-0 Yes [id number] Use as Univers se Meter 2-20 directed ity of (ULTRATRAK 00:00: [place] GLUCOSE 00 Medical METER) Kit Branch Blood-Gluco 3-0 Yes [id number] Use as Univers se Meter 2-20 directed ity of (ULTRATRAK 00:00: [place] GLUCOSE 00 Medical METER) Kit Branch Blood-Gluco 2022-0 Yes [id number] Use as Univers se Meter 2-20 directed ity of (ULTRATRAK 00:00: [place] GLUCOSE 00 Medical METER) Kit Branch Blood-Gluco 2023-0 2022- No [id number] Use as Univers se Meter 2-20 05-17 directed ity of (ULTRATRAK 00:00: 00:00 [place] GLUCOSE 00 :00 Medical METER) Kit Branch Blood-Gluco 2023-0 2022- No [id number] Use as Univers se Meter 2-20 -17 directed ity of (ULTRATRAK 00:00: 00:00 [place] GLUCOSE 00 :00 Medical METER) Kit Branch Blood-Gluco 2023-0 2022- No [id number] Use as Univers se Meter 2-20 -17 directed ity of (ULTRATRAK 00:00: 00:00 [place] GLUCOSE 00 :00 Medical METER) Kit Branch Blood-Gluco 2023-0 2022- No [id number] Use as Univers se Meter 2-20 -17 directed ity of (ULTRATRAK 00:00: 00:00 [place] GLUCOSE 00 :00 Medical METER) Kit Branch Blood-Gluco 3-0 3- No [id number] Use as Univers se Meter 2-20 05-17 directed ity of (ULTRATRAK 00:00: 00:00 [place] GLUCOSE 00 :00 Medical METER) Kit Branch Blood-Gluco 2022-0 Yes [id number] Use as Univers se Meter 2-10 directed ity of (ACCU-CHEK 00:00: [place] GUIDE 00 Medical GLUCOSE Branch METER) Misc Blood-Gluco 2022-0 Yes [id number] Use as Univers se Meter 2-10 directed ity of (ACCU-CHEK 00:00: [place] GUIDE 00 Medical GLUCOSE Branch METER) Misc Blood-Gluco 2022-0 Yes [id number] Use as Univers se Meter 2-10 directed ity of (ACCU-CHEK 00:00: [place] GUIDE 00 Medical GLUCOSE Branch METER) Misc GABAPENTIN 2022-0 Yes [id number] TAKE 1 U nivers 400 mg 2-10 CAPSULE BY ity of capsule 00:00: MOUTH TWICE Medical DAILY Branch NEEDED FOR PAIN (SCALE 4-6) Blood-Gluco 2022-0 Yes [id number] Use as Univers se Meter 2-10 directed ity of (ACCU-CHEK 00:00: [place] GUIDE 00 Medical GLUCOSE Branch METER) Misc GABAPENTIN 2022-0 Yes [id number] TAKE 1 U nivers 400 mg 2-10 CAPSULE BY ity of capsule 00:00: MOUTH TWICE Medical DAILY Branch NEEDED FOR PAIN (SCALE 4-6) Blood-Gluco 2022-0 Yes [id number] Use as Univers se Meter 2-10 directed ity of (ACCU-CHEK 00:00: [place] GUIDE 00 Medical GLUCOSE Branch METER) Misc GABAPENTIN 2022-0 Yes [id number] TAKE 1 U nivers 400 mg 2-10 CAPSULE BY ity of capsule 00:00: MOUTH 00 TWICE Medical DAILY Branch NEEDED FOR PAIN (SCALE 4-6) Blood-Gluco 2022-0 Yes [id number] Use as Univers se Meter 2-10 directed ity of (ACCU-CHEK 00:00: [place] GUIDE 00 Medical GLUCOSE Branch METER) Misc GABAPENTIN 2022-0 Yes [id number] TAKE 1 U nivers 400 mg 2-10 CAPSULE BY ity of capsule 00:00: MOUTH [place] 00 TWICE Medical DAILY Branch NEEDED FOR PAIN (SCALE 4-6) Blood-Gluco 2022-0 Yes [id number] Use as Univers se Meter 2-10 directed ity of (ACCU-CHEK 00:00: [place] GUIDE 00 Medical GLUCOSE Branch METER) [facility] GABAPENTIN 2022-0 Yes [id number] TAKE 1 U nivers 400 mg 2-10 CAPSULE BY ity of capsule 00:00: MOUTH 00 TWICE Medical DAILY Branch NEEDED FOR PAIN (SCALE 4-6) Blood-Gluco 2022-0 Yes [id number] Use as Univers se Meter 2-10 directed ity of (ACCU-CHEK 00:00: [place] Medical GLUCOSE Branch METER) [facility] GABAPENTIN 2022-0 Yes [id number] TAKE 1 U nivers 400 mg 2-10 CAPSULE BY ity of capsule 00:00: MOUTH TWICE Medical DAILY Branch NEEDED FOR PAIN (SCALE 4-6) GABAPENTIN 2022-0 Yes [id number] TAKE 1 U nivers 400 mg 2-10 CAPSULE BY ity of capsule 00:00: MOUTH TWICE Medical DAILY Branch NEEDED FOR PAIN (SCALE 4-6) GABAPENTIN 2022-0 Yes [id number] TAKE 1 U nivers 400 mg 2-10 CAPSULE BY ity of capsule 00:00: MOUTH 00 TWICE Medical DAILY Branch NEEDED FOR PAIN (SCALE 4-6) GABAPENTIN 2022-0 Yes [id number] TAKE 1 U nivers 400 mg 2-10 CAPSULE BY ity of capsule 00:00: MOUTH 00 TWICE Medical DAILY Branch NEEDED FOR PAIN (SCALE 4-6) GABAPENTIN 2022-0 Yes [id number] TAKE 1 U nivers 400 mg 2-10 CAPSULE BY ity of capsule 00:00: MOUTH 00 TWICE Medical DAILY Branch NEEDED FOR PAIN (SCALE 4-6) GABAPENTIN 2022-0 Yes [id number] TAKE 1 U nivers 400 mg 2-10 CAPSULE BY ity of capsule 00:00: MOUTH 00 TWICE Medical DAILY Branch NEEDED FOR PAIN (SCALE 4-6) GABAPENTIN 2022-0 Yes [id number] TAKE 1 U nivers 400 mg 2-10 CAPSULE BY ity of capsule 00:00: MOUTH 00 TWICE Medical DAILY Branch NEEDED FOR PAIN (SCALE 4-6) GABAPENTIN 2022-0 Yes [id number] TAKE 1 U nivers 400 mg 2-10 CAPSULE BY ity of capsule 00:00: MOUTH [place] 00 TWICE Medical DAILY Branch NEEDED FOR PAIN (SCALE 4-6) GABAPENTIN 2022-0 Yes [id number] TAKE 1 U nivers 400 mg 2-10 CAPSULE BY ity of capsule 00:00: MOUTH [place] 00 TWICE Medical DAILY Branch NEEDED FOR PAIN (SCALE 4-6) GABAPENTIN 2022-0 Yes [id number] TAKE 1 U nivers 400 mg 2-10 CAPSULE BY ity of capsule 00:00: MOUTH [place] 00 TWICE Medical DAILY Branch NEEDED FOR PAIN (SCALE 4-6) GABAPENTIN 2022-0 Yes [id number] TAKE 1 U nivers 400 mg 2-10 CAPSULE BY ity of capsule 00:00: MOUTH [place] 00 TWICE Medical DAILY Branch NEEDED FOR PAIN (SCALE 4-6) GABAPENTIN 2022-0 Yes [id number] TAKE 1 U nivers 400 mg 2-10 CAPSULE BY ity of capsule 00:00: MOUTH [place] 00 TWICE Medical DAILY Branch NEEDED FOR PAIN (SCALE 4-6) GABAPENTIN 2022-0 Yes [id number] TAKE 1 U nivers 400 mg 2-10 CAPSULE BY ity of capsule 00:00: MOUTH [place] 00 TWICE Medical DAILY Branch NEEDED FOR PAIN (SCALE 4-6) GABAPENTIN 2022-0 Yes [id number] TAKE 1 U nivers 400 mg 2-10 CAPSULE BY ity of capsule 00:00: MOUTH [place] 00 TWICE Medical DAILY Branch NEEDED FOR PAIN (SCALE 4-6) GABAPENTIN 2022-0 Yes [id number] TAKE 1 U nivers 400 mg 2-10 CAPSULE BY ity of capsule 00:00: MOUTH [place] 00 TWICE Medical DAILY Branch NEEDED FOR PAIN (SCALE 4-6) GABAPENTIN 2022-0 Yes [id number] TAKE 1 U nivers 400 mg 2-10 CAPSULE BY ity of capsule 00:00: MOUTH [place] 00 TWICE Medical DAILY Branch NEEDED FOR PAIN (SCALE 4-6) GABAPENTIN 2022-0 Yes [id number] TAKE 1 U nivers 400 mg 2-10 CAPSULE BY ity of capsule 00:00: MOUTH [place] 00 TWICE Medical DAILY Branch NEEDED FOR PAIN (SCALE 4-6) GABAPENTIN 2022-0 2023- No [id number] TAKE 1 Univers 400 mg 2-10 05-19 CAPSULE BY ity of capsule 00:00: 00:00 MOUTH [place] 00 :00 TWICE Medical DAILY Branch NEEDED FOR PAIN (SCALE 4-6) GABAPENTIN 202-0 2023- No [id number] TAKE 1 [facility] 400 mg 01-06 CAPSULE BY ity of capsule 00:00: 00:00 MOUTH [place] 00 :00 TWICE Medical DAILY Branch NEEDED FOR PAIN (SCALE 4-6) GABAPENTIN 2022- No [id number] TAKE 1 Univers 400 mg 2-04-14 CAPSULE BY ity of capsule 00:00: 00:00 MOUTH [place] 00 :00 TWICE Medical DAILY Branch NEEDED FOR PAIN (SCALE 4-6) GABAPENTIN 2022- No [id number] TAKE 1 [facility] 400 mg 01-06 CAPSULE BY ity of capsule 00:00: 00:00 MOUTH [place] 00 :00 TWICE Medical DAILY Branch NEEDED FOR PAIN (SCALE 4-6) Blood-Gluco 2022- No [id number] Use as Univers se Meter 01-06 directed ity of (ACCU-CHEK 00:00: 00:00 [place] GUIDE 00 :00 Medical GLUCOSE Branch METER) Misc atorvastati 2021-11- No [id number] 40mg Take 1 Univers n 40 mg -21 02- tablet by ity of tablet 00:00: 04:59 mouth at [place] 00 :00 bedtime Medical for 90 Branch days. atorvastati 2021-11- No [id number] 40mg Take 1 Univers n 40 mg -21 02- tablet by ity of tablet 00:00: 04:59 mouth at [place] 00 :00 bedtime Medical for 90 Branch days. atorvastati 2021-11- No [id number] 40mg Take 1 Univers n 40 mg -21 02- tablet by ity of tablet 00:00: 04:59 mouth at [place] 00 :00 bedtime Medical for 90 Branch days. atorvastati 2021-11- No [id number] 40mg Take 1 [facility] n 40 mg -21 02- tablet by ity of tablet 00:00: 04:59 mouth at [place] 00 :00 bedtime Medical for 90 Branch days. atorvastati 2021-11- No [id number] 40mg Take 1 Univers n 40 mg -21 02- tablet by ity of tablet 00:00: 04:59 mouth at [place] 00 :00 bedtime Medical for 90 Branch days. atorvastati 2021-11- No [id number] 40mg Take 1 [facility] n 40 mg 01-24 tablet by ity of tablet 00:00: 04:59 mouth at [place] 00 :00 bedtime Medical for 90 Branch days. atorvastati 2021-11- No [id number] 40mg Take 1 [facility] n 40 mg 01-24 tablet by ity of tablet 00:00: 04:59 mouth at [place] 00 :00 bedtime Medical for 90 Branch days. atorvastati 2021-11- No [id number] 40mg Take 1 [facility] n 40 mg 01-24 tablet by ity of tablet 00:00: 04:59 mouth at [place] 00 :00 bedtime Medical for 90 Branch days. atorvastati 2021-11- No [id number] 40mg Take 1 Univers n 40 mg 01-24 tablet by ity of tablet 00:00: 04:59 mouth at [place] 00 :00 bedtime Medical for 90 Branch days. atorvastati 2021-11- No [id number] 40mg Take 1 Univers n 40 mg 01-24 tablet by ity of tablet 00:00: 04:59 mouth at [place] 00 :00 bedtime Medical for 90 Branch days. atorvastati 2021-11- No [id number] 40mg Take 1 [facility] n 40 mg 01-24 tablet by ity of tablet 00:00: 04:59 mouth at [place] 00 :00 bedtime Medical for 90 Branch days. atorvastati 2021-11- No [id number] 40mg Take 1 [facility] n 40 mg 01-24 tablet by ity of tablet 00:00: 04:59 mouth at [place] 00 :00 bedtime Medical for 90 Branch days. atorvastati 2021-11- No [id number] 40mg Take 1 [facility] n 40 mg 01-24 tablet by ity of tablet 00:00: 04:59 mouth at [place] 00 :00 bedtime Medical for 90 Branch days. atorvastati 2021-11- No [id number] 40mg Take 1 [facility] n 40 mg 01-24 tablet by ity of tablet 00:00: 04:59 mouth at [place] 00 :00 bedtime Medical for 90 Branch days. atorvastati 2021-11- No [id number] 40mg Take 1 Univers n 40 mg 2-28 -29 tablet by ity of tablet 00:00: 04:59 mouth at [place] 00 :00 bedtime Medical for 90 Branch days. atorvastati 2021-11- No [id number] 40mg Take 1 Univers n 40 mg 2-28 -29 tablet by ity of tablet 00:00: 04:59 mouth at [place] 00 :00 bedtime Medical for 90 Branch days. atorvastati 2021-11- No [id number] 40mg Take 1 Univers n 40 mg 2-21 02-29 tablet by ity of tablet 00:00: 04:59 mouth at [place] 00 :00 bedtime Medical for 90 Branch days. gabapentin 2021-11 Yes 1{capsu Take 1 Un ines 400 mg 2-27 le} capsule by ity of capsule 10:17: mouth in [place] [address] the Medical morning Branch and 1 capsule in the evening. glipiZIDE 2021-11 Yes 1{tbl} Take 1 Univ ers 10 mg 2-27 tablet by ity of tablet 10:17: mouth in [place] [address] the Medical morning Branch and 1 tablet in the evening. gabapentin 2021-11 Yes 1{capsu Take 1 Un ines 400 mg 2-27 le} capsule by ity of capsule 10:17: mouth in [place] [address] the Medical morning Branch and 1 capsule in the evening. glipiZIDE 2021-11 Yes 1{tbl} Take 1 Univ ers 10 mg 2-27 tablet by ity of tablet 10:17: mouth in [place] [address] the Medical morning Branch and 1 tablet in the evening. gabapentin 2021-11 Yes 1{capsu Take 1 Un ines 400 mg 2-27 le} capsule by ity of capsule 10:17: mouth in [place] [address] the Medical morning Branch and 1 capsule in the evening. glipiZIDE 2021-11 Yes 1{tbl} Take 1 Univ ers 10 mg 2-27 tablet by ity of tablet 10:17: mouth in [place] [address] the Medical morning Branch and 1 tablet in the evening. gabapentin 2021-11 Yes 1{capsu Take 1 Un ines 400 mg 2-27 le} capsule by ity of capsule 10:17: mouth in [place] [address] the Medical morning [place] and 1 capsule in the evening. glipiZIDE 2021-11 Yes 1{tbl} Take 1 Univ ers 10 mg 2-27 tablet by ity of tablet 10:17: mouth in [place] [address] the Medical morning Branch and 1 tablet in the evening. gabapentin 2021-11 Yes 1{capsu Take 1 Un ines 400 mg 2-27 le} capsule by ity of capsule 10:17: mouth in [place] [address] the Medical morning Branch and 1 capsule in the evening. glipiZIDE 2021-11 Yes 1{tbl} Take 1 Univ ers 10 mg 2-27 tablet by ity of tablet 10:17: mouth in [place] [address] the Medical morning Branch and 1 tablet in the evening. gabapentin 2021-11 Yes 1{capsu Take 1 Un ines 400 mg 2-27 le} capsule by ity of capsule 10:17: mouth in [place] [address] the Medical morning Branch and 1 capsule in the evening. glipiZIDE 2021-11 Yes 1{tbl} Take 1 Univ ers 10 mg 2-27 tablet by ity of tablet 10:17: mouth in [place] [address] the Medical morning Branch and 1 tablet in the evening. gabapentin 2021-11 Yes 1{capsu Take 1 Un ines 400 mg 2-27 le} capsule by ity of capsule 10:17: mouth in [place] [address] the Medical morning Branch and 1 capsule in the evening. glipiZIDE 2021-11 Yes 1{tbl} Take 1 Univ ers 10 mg 2-27 tablet by ity of tablet 10:17: mouth in [place] [address] the Medical morning Branch and 1 tablet in the evening. insulin 2021-11 Yes as [facility] degludec 2-27 directed ity of 100 unit/mL 10:17: [place] [facility] Branch lisinopriL- 2021-11 Yes 1 tablet Un ines hydrochloro 2-27 ity of thiazide 10:17: [place] 20-12.5 [facility] Medical per tablet Branch gabapentin 2021-11 Yes 1{capsu Take 1 Un ines 400 mg 2-27 le} capsule by it[facility] of capsule 10:17: mouth in [place] [address] the Medical morning Branch and 1 capsule in the evening. glipiZIDE 2021-11 Yes 1{tbl} Take 1 [facility] 10 mg 2-27 tablet by it[facility] of tablet 10:17: mouth in [place] [address] the Medical morning Branch and 1 tablet in the evening. gabapentin 2021-11 Yes 1{capsu Take 1 Un ines 400 mg 2-27 le} capsule by ity of capsule 10:17: mouth in [place] [address] the Medical morning Branch and 1 capsule in the evening. glipiZIDE 2021-11 Yes 1{tbl} Take 1 [facility] 10 mg 2-27 tablet by ity of tablet 10:17: mouth in [place] [address] the Medical morning Branch and 1 tablet in the evening. gabapentin 2021-11 Yes 1{capsu Take 1 Un ines 400 mg 2-27 le} capsule by ity of capsule 10:17: mouth in [place] [address] the Medical morning Branch and 1 capsule in the evening. glipiZIDE 2021-11 Yes 1{tbl} Take 1 [facility] 10 mg 2-27 tablet by it[facility] of tablet 10:17: mouth in [place] [address] the Medical morning Branch and 1 tablet in the evening. gabapentin 2021-11 Yes 1{capsu Take 1 Un ines 400 mg 2-27 le} capsule by ity of capsule 10:17: mouth in [place] [address] the Medical morning Branch and 1 capsule in the evening. glipiZIDE 2021-11 Yes 1{tbl} Take 1 [facility] 10 mg 2-27 tablet by ity of tablet 10:17: mouth in [place] [address] the Medical morning Branch and 1 tablet in the evening. gabapentin 2021-11 Yes 1{capsu Take 1 Un ines 400 mg 2-27 le} capsule by ity of capsule 10:17: mouth in [place] [address] the Medical morning Branch and 1 capsule in the evening. glipiZIDE 2021-11 Yes 1{tbl} Take 1 [facility] 10 mg 2-27 tablet by it[facility] of tablet 10:17: mouth in [place] [address] the Medical morning Branch and 1 tablet in the evening. insulin 2021-11 Yes as [facility] degludec 2-27 directed ity of 100 unit/mL 10:17: [place] [facility] lisinopriL- 2021-11 Yes 1 tablet Un ines hydrochloro 2-27 ity of thiazide 10:17: [place] 20-12.5 [facility] per tablet Branch gabapentin 2021-11 Yes 1{capsu Take 1 Un ines 400 mg 2-27 le} capsule by ity of capsule 10:17: mouth in [place] [address] the Medical morning Branch and 1 capsule in the evening. glipiZIDE 2021-11 Yes 1{tbl} Take 1 [facility] 10 mg 2-27 tablet by ity of tablet 10:17: mouth in [place] [address] the Medical morning Branch and 1 tablet in the evening. insulin 2021-11 Yes as [facility] degludec 2-27 directed ity of 100 unit/mL 10:17: [address] Branch lisinopriL- 2021-11 Yes 1 tablet Un ines hydrochloro 2-27 ity of thiazide 10:17: [place] 20-12.5 mg 39 Medical per tablet Branch gabapentin 2021-11 Yes 1{capsu Take 1 Un ines 400 mg 2-27 le} capsule by ity of capsule 10:17: mouth in [place] [address] the Medical morning Branch and 1 capsule in the evening. glipiZIDE 2021-11 Yes 1{tbl} Take 1 [facility] 10 mg 2-27 tablet by ity of tablet 10:17: mouth in [place] [address] the Medical morning Branch and 1 tablet in the evening. insulin 2021-11 Yes as [facility] degludec 2-27 directed ity of 100 unit/mL 10:17: [address] Branch lisinopriL- 2021-11 Yes 1 tablet Un ines hydrochloro 2-27 ity of thiazide 10:17: [place] 20-12.5 mg 39 Medical per tablet Branch gabapentin 2021-11 Yes 1{capsu Take 1 Un ines 400 mg 2-27 le} capsule by ity of capsule 10:17: mouth in [place] [address] the Medical morning Branch and 1 capsule in the evening. glipiZIDE 2021-11 Yes 1{tbl} Take 1 [facility] 10 mg 2-27 tablet by ity of tablet 10:17: mouth in [place] [address] the Medical morning Branch and 1 tablet in the evening. insulin 2021-11 Yes as [facility] degludec 2-27 directed ity of 100 unit/mL 10:17: [address] Branch lisinopriL- 2021-11 Yes 1 tablet Un ines hydrochloro 2-27 ity of thiazide 10:17: [place] 20-12.5 mg 39 Medical per tablet Branch gabapentin 2021-11 Yes 1{capsu Take 1 Un ines 400 mg 2-27 le} capsule by ity of capsule 10:17: mouth in [place] [address] the Medical morning Branch and 1 capsule in the evening. glipiZIDE 2021-11 Yes 1{tbl} Take 1 [facility] 10 mg 2-27 tablet by ity of tablet 10:17: mouth in [place] [address] the Medical morning Branch and 1 tablet in the evening. insulin 2021-11 Yes as [facility] degludec 2-27 directed ity of 100 unit/mL 10:17: [address] Branch lisinopriL- 2021-11 Yes 1 tablet Un ines hydrochloro 2-27 ity of thiazide 10:17: [place] 20-12.5 mg 39 Medical per tablet Branch gabapentin 2021-11 Yes 1{capsu Take 1 Un ines 400 mg 2-27 le} capsule by ity of capsule 10:17: mouth in [place] [address] the Medical morning Branch and 1 capsule in the evening. glipiZIDE 2021-11 Yes 1{tbl} Take 1 [facility] 10 mg 2-27 tablet by ity of tablet 10:17: mouth in [place] [address] the Medical morning Branch and 1 tablet in the evening. insulin 2021-11 Yes as [facility] degludec 2-27 directed ity of 100 unit/mL 10:17: [address] Branch lisinopriL- 2021-11 Yes 1 tablet Un ines hydrochloro 2-27 ity of thiazide 10:17: [place] 20-12.5 mg 39 Medical per tablet Branch gabapentin 2021-11 Yes 1{capsu Take 1 Un ines 400 mg 2-27 le} capsule by ity of capsule 10:17: mouth in [place] [address] the Medical morning Branch and 1 capsule in the evening. glipiZIDE 2021-11 Yes 1{tbl} Take 1 [facility] 10 mg 2-27 tablet by ity of tablet 10:17: mouth in [place] [address] the Medical morning Branch and 1 tablet in the evening. insulin 2021-11 Yes as [facility] degludec 2-27 directed ity of 100 unit/mL 10:17: [address] Branch lisinopriL- 2021-11 Yes 1 tablet Un ines hydrochloro 2-27 ity of thiazide 10:17: [place] 20-12.5 mg 39 Medical per tablet Branch gabapentin 2021-11 Yes 1{capsu Take 1 Un ines 400 mg 2-27 le} capsule by ity of capsule 10:17: mouth in [place] [address] the Medical morning Branch and 1 capsule in the evening. glipiZIDE 2021-11 Yes 1{tbl} Take 1 [facility] 10 mg 2-27 tablet by ity of tablet 10:17: mouth in [place] [address] the Medical morning Branch and 1 tablet in the evening. insulin 2021-11 Yes as [facility] degludec 2-27 directed ity of 100 unit/mL 10:17: [address] Branch lisinopriL- 2021-11 Yes 1 tablet Un ines hydrochloro 2-27 ity of thiazide 10:17: [place] 20-12.5 mg 39 Medical per tablet Branch gabapentin 2021-11 Yes 1{capsu Take 1 Un ines 400 mg 2-27 le} capsule by ity of capsule 10:17: mouth in [place] [address] the Medical morning Branch and 1 capsule in the evening. glipiZIDE 2021-11 Yes 1{tbl} Take 1 [facility] 10 mg 2-27 tablet by ity of tablet 10:17: mouth in [place] [address] the Medical morning [place] and 1 tablet in the evening. gabapentin 2021-11 Yes 1{capsu Take 1 Un ines 400 mg 2-27 le} capsule by ity of capsule 10:17: mouth in [place] [address] the Medical morning Branch and 1 capsule in the evening. glipiZIDE 2021-11 Yes 1{tbl} Take 1 [facility] 10 mg 2-27 tablet by ity of tablet 10:17: mouth in [place] [address] the Medical morning [place] and 1 tablet in the evening. insulin 2021-11 Yes as [facility] degludec 2-27 directed ity of 100 unit/mL 10:17: [address] Branch lisinopriL- 2021-11 Yes 1 tablet Un ines hydrochloro 2-27 ity of thiazide 10:17: [place] 2012.5 mg 39 Medical per tablet Branch insulin 2021-11 Yes as [facility] degludec 2-27 directed ity of 100 unit/mL 10:17: [address] Branch lisinopriL- 2021-11 Yes 1 tablet Un ines hydrochloro 2-27 ity of thiazide 10:17: [place] 20-12.5 mg 39 Medical per tablet Branch gabapentin 2021-11 Yes 1{capsu Take 1 Un ines 400 mg 2-27 le} capsule by ity of capsule 10:17: mouth in [place] [address] the Medical morning Branch and 1 capsule in the evening. glipiZIDE 2021-11 Yes 1{tbl} Take 1 [facility] 10 mg 2-27 tablet by ity of tablet 10:17: mouth in [place] [address] the Medical morning Branch and 1 tablet in the evening. insulin 2021-11 Yes as [facility] degludec 2-27 directed ity of 100 unit/mL 10:17: [address] Branch lisinopriL- 2021-11 Yes 1 tablet Un ines hydrochloro 2-27 ity of thiazide 10:17: [place] 20-12.5 mg 39 Medical per tablet Branch gabapentin 2021-11 Yes 1{capsu Take 1 Un ines 400 mg 2-27 le} capsule by ity of capsule 10:17: mouth in [place] [address] the Medical morning Branch and 1 capsule in the evening. glipiZIDE 2021-11 Yes 1{tbl} Take 1 [facility] 10 mg 2-27 tablet by ity of tablet 10:17: mouth in [address] and 1 tablet in the evening. insulin 2021-11 Yes as [facility] degludec 2-27 directed ity of 100 unit/mL 10:17: [address] Branch lisinopriL- 2021-11 Yes 1 tablet Un ines hydrochloro 2-27 ity of thiazide 10:17: [place] 20-12.5 mg 39 Medical per tablet Branch gabapentin 2021-11 Yes 1{capsu Take 1 Un ines 400 mg 2-27 le} capsule by ity of capsule 10:17: mouth in [address] Medical [facility] and 1 capsule in the evening. glipiZIDE 2021-11 Yes 1{tbl} Take 1 [facility] ers 10 mg 2-27 tablet by ity of tablet 10:17: mouth in [place] [address] the Medical morning Branch and 1 tablet in the evening. insulin 2021-11 Yes as [facility] degludec 2-27 directed ity of 100 unit/mL 10:17: [address] Branch lisinopriL- 2021-11 Yes 1 tablet Un ines hydrochloro 2-27 ity of thiazide 10:17: [place] 20-12.5 mg 39 Medical per tablet Branch gabapentin 2021-11 Yes 1{capsu Take 1 Un ines 400 mg 2-27 le} capsule by ity of capsule 10:17: mouth in [place] [address] the Medical morning Branch and 1 capsule in the evening. glipiZIDE 2021-11 Yes 1{tbl} Take 1 [facility] 10 mg 2-27 tablet by ity of tablet 10:17: mouth in [place] [address] the Medical morning Branch and 1 tablet in the evening. insulin 2021-11 Yes as [facility] degludec 2-27 directed ity of 100 unit/mL 10:17: [address] Branch lisinopriL- 2021-11 Yes 1 tablet Un ines hydrochloro 2-27 ity of thiazide 10:17: [place] 20-12.5 mg 39 Medical per tablet Branch gabapentin 2021-11 Yes 1{capsu Take 1 Un ines 400 mg 2-27 le} capsule by ity of capsule 10:17: mouth in [place] [address] the Medical morning Branch and 1 capsule in the evening. glipiZIDE 2021-11 Yes 1{tbl} Take 1 [facility] 10 mg 2-27 tablet by ity of tablet 10:17: mouth in [place] [address] the Medical morning [place] and 1 tablet in the evening. insulin 2021-11 Yes as [facility] degludec 2-27 directed ity of 100 unit/mL 10:17: [address] Branch lisinopriL- 2021-11 Yes 1 tablet Un ines hydrochloro 2-27 ity of thiazide 10:17: [place] 20-12.5 mg 39 Medical per tablet Branch gabapentin 2021-11 Yes 1{capsu Take 1 Un ines 400 mg 2-27 le} capsule by ity of capsule 10:17: mouth in [place] [address] the Medical morning Branch and 1 capsule in the evening. glipiZIDE 2021-11 Yes 1{tbl} Take 1 [facility] 10 mg 2-27 tablet by ity of tablet 10:17: mouth in [place] [address] the Medical morning Branch and 1 tablet in the evening. insulin 2021-11 Yes as [facility] degludec 2-27 directed ity of 100 unit/mL 10:17: [address] Branch lisinopriL- 2021-11 Yes 1 tablet Un ines hydrochloro 2-27 ity of thiazide 10:17: [place] 20-12.5 mg 39 Medical per tablet Branch gabapentin 2021-11 Yes 1{capsu Take 1 Un ines 400 mg 2-27 le} capsule by ity of capsule 10:17: mouth in [place] [address] the Medical morning Branch and 1 capsule in the evening. glipiZIDE 2021-11 Yes 1{tbl} Take 1 [facility] 10 mg 2-27 tablet by ity of tablet 10:17: mouth in [place] [address] the Medical morning Branch and 1 tablet in the evening. insulin 2021-11 Yes as [facility] degludec 2-27 directed ity of 100 unit/mL 10:17: [address] Branch lisinopriL- 2021-11 Yes 1 tablet Un ines hydrochloro 2-27 ity of thiazide 10:17: [place] 20-12.5 mg 39 Medical per tablet Branch gabapentin 2021-11 Yes 1{capsu Take 1 Un ines 400 mg 2-27 le} capsule by ity of capsule 10:17: mouth in [place] [address] the Medical morning Branch and 1 capsule in the evening. glipiZIDE 2021-11 Yes 1{tbl} Take 1 [facility] 10 mg 2-27 tablet by ity of tablet 10:17: mouth in [place] [address] the Medical morning Branch and 1 tablet in the evening. insulin 2021-11 Yes as [facility] degludec 2-27 directed ity of 100 unit/mL 10:17: [address] Branch lisinopriL- 2021-11 Yes 1 tablet Un ines hydrochloro 2-27 ity of thiazide 10:17: [place] 20-12.5 mg 39 Medical per tablet Branch gabapentin 2021-11 Yes 1{capsu Take 1 Un ines 400 mg 2-27 le} capsule by ity of capsule 10:17: mouth in [place] [address] the Medical morning Branch and 1 capsule in the evening. glipiZIDE 2021-11 Yes 1{tbl} Take 1 [facility] 10 mg 2-27 tablet by ity of tablet 10:17: mouth in [place] [address] the Medical morning Branch and 1 tablet in the evening. insulin 2021-11 Yes as [facility] degludec 2-27 directed ity of 100 unit/mL 10:17: [address] Branch lisinopriL- 2021-11 Yes 1 tablet Un ines hydrochloro 2-27 ity of thiazide 10:17: [place] 20-12.5 mg 39 Medical per tablet Branch gabapentin 2022-1 Yes 1{capsu Take 1 Un ines 400 mg 2-27 le} capsule by ity of capsule 10:17: mouth in [place] [address] the Medical morning Branch and 1 capsule in the evening. glipiZIDE 2021-11 Yes 1{tbl} Take 1 [facility] ers 10 mg 2-27 tablet by ity of tablet 10:17: mouth in [place] [address] the Medical morning Branch and 1 tablet in the evening. insulin 2021-11 Yes as [facility] degludec 2-27 directed ity of 100 unit/mL 10:17: [address] Branch lisinopriL- 2021-11 Yes 1 tablet Un ines hydrochloro 2-27 ity of thiazide 10:17: [place] 2012.5 mg 39 Medical per tablet Branch gabapentin 2021-11 Yes 1{capsu Take 1 Un ines 400 mg 2-27 le} capsule by ity of capsule 10:17: mouth in [place] [address] the Medical morning Branch and 1 capsule in the evening. gabapentin 2021-11 Yes 1{capsu Take 1 Un ines 400 mg 2-27 le} capsule by ity of capsule 10:17: mouth in [place] [address] the Medical morning Branch and 1 capsule in the evening. glipiZIDE 2021-11 Yes 1{tbl} Take 1 Univ ers 10 mg 2-27 tablet by ity of tablet 10:17: mouth in [place] [address] the Medical morning Branch and 1 tablet in the evening. insulin 2021-11 Yes as [facility] degludec 2-27 directed ity of 100 unit/mL 10:17: [address] Branch lisinopriL- 2021-11 Yes 1 tablet Un ines hydrochloro 2-27 ity of thiazide 10:17: [place] 2012.5 mg 39 Medical per tablet Branch glipiZIDE 2021-11 Yes 1{tbl} Take 1 [facility] ers 10 mg 2-27 tablet by ity of tablet 10:17: mouth in [place] [address] the Medical morning Branch and 1 tablet in the evening. insulin 2021-11 Yes as [facility] degludec 2-27 directed ity of 100 unit/mL 10:17: [address] Branch gabapentin 2021-11 Yes 1{capsu Take 1 Un ines 400 mg 2-27 le} capsule by ity of capsule 10:17: mouth in [place] [address] the Medical morning Branch and 1 capsule in the evening. glipiZIDE 2021-11 Yes 1{tbl} Take 1 [facility] ers 10 mg 2-27 tablet by ity of tablet 10:17: mouth in [place] [address] the Medical morning Branch and 1 tablet in the evening. insulin 2021-11 Yes as [facility] degludec 2-27 directed ity of 100 unit/mL 10:17: [place] [address] Medical Branch lisinopriL- 2021-11 Yes 1 tablet Un ines hydrochloro 2-27 ity of thiazide 10:17: [place] 20-12.5 mg 39 Medical per tablet Branch lisinopriL- 2021-11 Yes 1 tablet Un ines hydrochloro 2-27 ity of thiazide 10:17: [place] 20-12.5 mg 39 Medical per tablet Branch gabapentin 2021-11 Yes 1{capsu Take 1 Un ines 400 mg 2-27 le} capsule by ity of capsule 10:17: mouth in [place] [address] the Medical morning Branch and 1 capsule in the evening. glipiZIDE 2021-11 Yes 1{tbl} Take 1 [facility] ers 10 mg 2-27 tablet by ity of tablet 10:17: mouth in [place] [address] the Medical morning Branch and 1 tablet in the evening. insulin 2021-11 Yes as [facility] degludec 2-27 directed ity of 100 unit/mL 10:17: [address] Branch lisinopriL- 2021-11 Yes 1 tablet Un ines hydrochloro 2-27 ity of thiazide 10:17: [place] 20-12.5 mg 39 Medical per tablet Branch gabapentin 2021-11 Yes 1{capsu Take 1 Un ines 400 mg 2-27 le} capsule by ity of capsule 10:17: mouth in [place] [address] the Medical morning Branch and 1 capsule in the evening. glipiZIDE 2021-11 Yes 1{tbl} Take 1 [facility] 10 mg 2-27 tablet by ity of tablet 10:17: mouth in [place] [address] the Medical morning Branch and 1 tablet in the evening. lisinopriL- 2021-11 Yes 1 tablet Un ines hydrochloro 2-27 ity of thiazide 10:17: [place] 20-12.5 mg 39 Medical per tablet Branch gabapentin 2021-11 Yes 1{capsu Take 1 Un ines 400 mg 2-27 le} capsule by ity of capsule 10:17: mouth in [place] [address] the Medical morning Branch and 1 capsule in the evening. glipiZIDE 2021-11 Yes 1{tbl} Take 1 [facility] 10 mg 2-27 tablet by ity of tablet 10:17: mouth in [place] [address] the Medical morning Branch and 1 tablet in the evening. lisinopriL- 2021-11 Yes 1 tablet Un ines hydrochloro 2-27 ity of thiazide 10:17: [place] 20-12.5 mg 39 Medical per tablet Branch gabapentin 2021-11 Yes 1{capsu Take 1 Un ines 400 mg 2-27 le} capsule by ity of capsule 10:17: mouth in [place] [address] the Medical morning Branch and 1 capsule in the evening. glipiZIDE 2021-11 Yes 1{tbl} Take 1 [facility] 10 mg 2-27 tablet by ity of tablet 10:17: mouth in [place] [address] the Medical morning Branch and 1 tablet in the evening. lisinopriL- 2021-11 Yes 1 tablet Un ines hydrochloro 2-27 ity of thiazide 10:17: [place] 2012.5 mg 39 Medical per tablet Branch gabapentin 2021-11 Yes 1{capsu Take 1 Un ines 400 mg 2-27 le} capsule by ity of capsule 10:17: mouth in [place] [address] the Medical morning Branch and 1 capsule in the evening. glipiZIDE 2021-11 Yes 1{tbl} Take 1 [facility] 10 mg 2-27 tablet by ity of tablet 10:17: mouth in [place] [address] the Medical morning Branch and 1 tablet in the evening. lisinopriL- 2021-11 Yes 1 tablet Un ines hydrochloro 2-27 ity of thiazide 10:17: [place] 20-12.5 mg 39 Medical per tablet Branch gabapentin 2021-11 Yes 1{capsu Take 1 Un ines 400 mg 2-27 le} capsule by ity of capsule 10:17: mouth in [place] [address] the Medical morning Branch and 1 capsule in the evening. glipiZIDE 2021-11 Yes 1{tbl} Take 1 [facility] 10 mg 2-27 tablet by ity of tablet 10:17: mouth in [place] [address] the Medical morning Branch and 1 tablet in the evening. lisinopriL- 2021-11 Yes 1 tablet Un ines hydrochloro 2-27 ity of thiazide 10:17: [place] 20-12.5 mg 39 Medical per tablet Branch gabapentin 2021-11 Yes 1{capsu Take 1 Un ines 400 mg 2-27 le} capsule by ity of capsule 10:17: mouth in [place] [address] the Medical morning Branch and 1 capsule in the evening. glipiZIDE 2021-11 Yes 1{tbl} Take 1 [facility] 10 mg 2-27 tablet by ity of tablet 10:17: mouth in [place] [address] the Medical morning Branch and 1 tablet in the evening. lisinopriL- 2021-11 Yes 1 tablet Un ines hydrochloro 2-27 ity of thiazide 10:17: [place] 20-12.5 mg 39 Medical per tablet Branch gabapentin 2021-11 Yes 1{capsu Take 1 Un ines 400 mg 2-27 le} capsule by ity of capsule 10:17: mouth in [place] [address] the Medical morning Branch and 1 capsule in the evening. glipiZIDE 2021-11 Yes 1{tbl} Take 1 [facility] 10 mg 2-27 tablet by ity of tablet 10:17: mouth in [place] [address] the Medical morning [place] and 1 tablet in the evening. lisinopriL- 2021-11 Yes 1 tablet Un ines hydrochloro 2-27 ity of thiazide 10:17: [place] 20-12.5 mg 39 Medical per tablet Branch gabapentin 2021-11 Yes 1{capsu Take 1 Un ines 400 mg 2-27 le} capsule by ity of capsule 10:17: mouth in [place] [address] the Medical morning Branch and 1 capsule in the evening. gabapentin 2021-11 Yes 1{capsu Take 1 Un ines 400 mg 2-27 le} capsule by ity of capsule 10:17: mouth in [place] [address] the Medical morning Branch and 1 capsule in the evening. glipiZIDE 2021-11 Yes 1{tbl} Take 1 [facility] 10 mg 2-27 tablet by ity of tablet 10:17: mouth in [place] [address] the Medical morning Branch and 1 tablet in the evening. glipiZIDE 2021-11 Yes 1{tbl} Take 1 [facility] 10 mg 2-27 tablet by ity of tablet 10:17: mouth in [place] [address] the Medical morning Branch and 1 tablet in the evening. lisinopriL- 2021-11 Yes 1 tablet Un ines hydrochloro 2-27 ity of thiazide 10:17: [place] 20-12.5 mg 39 Medical per tablet Branch insulin 2021-11 Yes as [facility] degludec 2-27 directed ity of 100 unit/mL 10:17: [place] Soln 39 Medical Branch lisinopriL- 2021-11 Yes 1 tablet Un ines hydrochloro 2-27 ity of thiazide 10:17: [place] 20-12.5 mg 39 Medical per tablet Branch gabapentin 2021-11 Yes 1{capsu Take 1 Un ines 400 mg 2-27 le} capsule by ity of capsule 10:17: mouth in [place] [address] the Medical morning Branch and 1 capsule in the evening. glipiZIDE 2021-11 Yes 1{tbl} Take 1 [facility] ers 10 mg 2-27 tablet by ity of tablet 10:17: mouth in [place] [address] the Medical morning Branch and 1 tablet in the evening. lisinopriL- 2021-11 Yes 1 tablet Un ines hydrochloro 2-27 ity of thiazide 10:17: [place] 20-12.5 mg 39 Medical per tablet Branch gabapentin 2021-11 Yes 1{capsu Take 1 Un ines 400 mg 2-27 le} capsule by ity of capsule 10:17: mouth in [place] [address] the Medical morning Branch and 1 capsule in the evening. glipiZIDE 2021-11 Yes 1{tbl} Take 1 [facility] 10 mg 2-27 tablet by ity of tablet 10:17: mouth in [place] [address] the Medical morning Branch and 1 tablet in the evening. lisinopriL- 2021-11 Yes 1 tablet Un ines hydrochloro 2-27 ity of thiazide 10:17: [place] 20-12.5 mg 39 Medical per tablet Branch gabapentin 2021-11 Yes 1{capsu Take 1 Un ines 400 mg 2-27 le} capsule by ity of capsule 10:17: mouth in [place] [address] the Medical morning Branch and 1 capsule in the evening. glipiZIDE 2021-11 Yes 1{tbl} Take 1 [facility] 10 mg 2-27 tablet by ity of tablet 10:17: mouth in [place] [address] the Medical morning Branch and 1 tablet in the evening. lisinopriL- 2021-11 Yes 1 tablet Un ines hydrochloro 2-27 ity of thiazide 10:17: [place] 20-12.5 mg 39 Medical per tablet Branch gabapentin 2021-11 Yes 1{capsu Take 1 Un ines 400 mg 2-27 le} capsule by ity of capsule 10:17: mouth in [place] [address] the Medical morning Branch and 1 capsule in the evening. glipiZIDE 2021-11 Yes 1{tbl} Take 1 [facility] ers 10 mg 2-27 tablet by ity of tablet 10:17: mouth in [place] [address] the Medical morning Branch and 1 tablet in the evening. lisinopriL- 2021-11 Yes 1 tablet Un ines hydrochloro 2-27 ity of thiazide 10:17: [place] 20-12.5 mg 39 Medical per tablet Branch gabapentin 2021-11 Yes 1{capsu Take 1 Un ines 400 mg 2-27 le} capsule by ity of capsule 10:17: mouth in [place] [address] the Medical morning Branch and 1 capsule in the evening. glipiZIDE 2021-11 Yes 1{tbl} Take 1 [facility] 10 mg 2-27 tablet by ity of tablet 10:17: mouth in [place] [address] the Medical morning Branch and 1 tablet in the evening. lisinopriL- 2021-11 Yes 1 tablet Un ines hydrochloro 2-27 ity of thiazide 10:17: [place] 20-12.5 mg 39 Medical per tablet Branch gabapentin 2021-11 Yes 1{capsu Take 1 Un ines 400 mg 2-27 le} capsule by ity of capsule 10:17: mouth in [place] [address] the Medical morning Branch and 1 capsule in the evening. gabapentin 2021-11 Yes 1{capsu Take 1 Un ines 400 mg 2-27 le} capsule by ity of capsule 10:17: mouth in [place] [address] the Medical morning Branch and 1 capsule in the evening. glipiZIDE 2021-11 Yes 1{tbl} Take 1 [facility] 10 mg 2-27 tablet by ity of tablet 10:17: mouth in [place] [address] the Medical morning Branch and 1 tablet in the evening. lisinopriL- 2021-11 Yes 1 tablet Un ines hydrochloro 2-27 ity of thiazide 10:17: [place] 20-12.5 mg 39 Medical per tablet Branch glipiZIDE 2021-11 Yes 1{tbl} Take 1 [facility] 10 mg 2-27 tablet by ity of tablet 10:17: mouth in [place] [address] the Medical morning Branch and 1 tablet in the evening. insulin 2021-11 Yes as [facility] degludec 2-27 directed ity of 100 unit/mL 10:17: [place] [address] Medical Branch gabapentin 2021-11 Yes 1{capsu Take 1 Un ines 400 mg 2-27 le} capsule by ity of capsule 10:17: mouth in [place] [address] the Medical morning Branch and 1 capsule in the evening. glipiZIDE 2021-11 Yes 1{tbl} Take 1 [facility] 10 mg 2-27 tablet by ity of tablet 10:17: mouth in [place] [address] the Medical morning Branch and 1 tablet in the evening. lisinopriL- 2021-11 Yes 1 tablet Un ines hydrochloro 2-27 ity of thiazide 10:17: [place] 20-12.5 mg 39 Medical per tablet Branch lisinopriL- 2021-11 Yes 1 tablet Un ines hydrochloro 2-27 ity of thiazide 10:17: [place] 20-12.5 mg 39 Medical per tablet Branch gabapentin 2021-11 Yes 1{capsu Take 1 Un ines 400 mg 2-27 le} capsule by ity of capsule 10:17: mouth in [place] [address] the Medical morning Branch and 1 capsule in the evening. glipiZIDE 2021-11 Yes 1{tbl} Take 1 Univ ers 10 mg 2-27 tablet by ity of tablet 10:17: mouth in [place] [address] the Medical morning Branch and 1 tablet in the evening. gabapentin 2021-11 Yes 1{capsu Take 1 Un ines 400 mg 2-27 le} capsule by ity of capsule 10:17: mouth in [place] [address] the Medical morning Branch and 1 capsule in the evening. glipiZIDE 2021-11 Yes 1{tbl} Take 1 Univ ers 10 mg 2-27 tablet by ity of tablet 10:17: mouth in [place] [address] the Medical morning Branch and 1 tablet in the evening. gabapentin 2021-11 Yes 1{capsu Take 1 Un ines 400 mg 2-27 le} capsule by ity of capsule 10:17: mouth in [place] [address] the Medical morning Branch and 1 capsule in the evening. glipiZIDE 2021-11 Yes 1{tbl} Take 1 Univ ers 10 mg 2-27 tablet by ity of tablet 10:17: mouth in [place] [address] the Medical morning Branch and 1 tablet in the evening. gabapentin 2021-11 Yes 1{capsu Take 1 Un ines 400 mg 2-27 le} capsule by ity of capsule 10:17: mouth in [place] [address] the [facility] and 1 capsule in the evening. glipiZIDE 2021-11 Yes 1{tbl} Take 1 Univ ers 10 mg 2-27 tablet by ity of tablet 10:17: mouth in [place] [address] the [facility] and 1 tablet in the evening. gabapentin 2021-11 Yes 1{capsu Take 1 Un ines 400 mg 2-27 le} capsule by ity of capsule 10:17: mouth in [place] [address] the [facility] and 1 capsule in the evening. gabapentin 2021-11 Yes 1{capsu Take 1 Un ines 400 mg 2-27 le} capsule by ity of capsule 10:17: mouth in [place] [address] the [facility] and 1 capsule in the evening. glipiZIDE 2021-11 Yes 1{tbl} Take 1 Univ ers 10 mg 2-27 tablet by ity of tablet 10:17: mouth in [place] [address] the [facility] and 1 tablet in the evening. glipiZIDE 2021-11 Yes 1{tbl} Take 1 Univ ers 10 mg 2-27 tablet by ity of tablet 10:17: mouth in [place] [address] the [facility] and 1 tablet in the evening. insulin 2021-11 Yes as Univers degludec 2-27 directed ity of 100 unit/mL 10:17: [address] Branch gabapentin 2021-11 Yes 1{capsu Take 1 Un ines 400 mg 2-27 le} capsule by ity of capsule 10:17: mouth in [place] [address] the [facility] and 1 capsule in the evening. glipiZIDE 2021-11 Yes 1{tbl} Take 1 Univ ers 10 mg 2-27 tablet by ity of tablet 10:17: mouth in [place] [address] the [facility] and 1 tablet in the evening. lisinopriL- 2021-11 Yes 1 tablet Un ines hydrochloro 2-27 ity of thiazide 10:17: [place] 20-12.5 mg 39 Medical per tablet Branch blood sugar 2021-11 Yes [id number] Check U nivers diagnostic 2-27 fasting ity of (GLUCOCARD 00:00: blood [place] SHINE TEST 00 glucose Medica l STRIPS) daily Branch strip gabapentin 2021-11 Yes [id number] 400mg Take 1 [facility] 400 mg 2-27 capsule by ity of capsule 00:00: mouth 2 (two) Medical times [place] daily as needed for Pain (scale 4-6). SERTraline 2021-11 Yes [id number] 50mg Take 1 Univers (ZOLOFT) 50 2-27 tablet by ity of mg tablet 00:00: mouth in [facility] the Medical morning. Branch glipiZIDE 2021-11 Yes [id number] 10mg Take 1 Un ines 10 mg 2-27 tablet by ity of tablet 00:00: mouth in [place] the Medical morning. Branch lisinopriL- 2021-11 Yes [id number] 1{tbl} Take 1 [facility] hydrochloro 2-27 tablet by ity of thiazide 00:00: mouth in [place] 20-12.5 mg 00 the Medical per tablet morning. Bran h Blood-Gluco 2021-11 Yes [id number] Check FBS Univers se Meter 2-27 DAILY ity of (GLUCOCARD 00:00: [place] SHINE 00 Medical METER) [facility] Blood-Gluco 2021-11 Yes [id number] Check FBS Univers se Meter 2-27 DAILY ity of (GLUCOCARD 00:00: [place] SHINE 00 Medical METER) [facility] lancets 2021-11 Yes [id number] Check Unive rs (TECHLITE 2-27 fasting BS ity of LANCETS) 28 00:00: daily [address] blood sugar 2021-11 Yes [id number] Check U nivers diagnostic 2-27 fasting ity of (GLUCOCARD 00:00: blood [place] SHINE TEST 00 glucose Medica l STRIPS) daily Branch strip lancets 2021-11 Yes [id number] Check Unive rs (TECHLITE 2-27 fasting BS ity of LANCETS) 28 00:00: daily [address] Branch glipiZIDE 2021-11 Yes [id number] 10mg Take 1 Un ines 10 mg 2-27 tablet by ity of tablet 00:00: mouth in [place] 00 the Medical morning. Branch lisinopriL- 2021-11 Yes [id number] 1{tbl} Take 1 Univers hydrochloro 2-27 tablet by ity of thiazide 00:00: mouth in [place] 20-12.5 mg 00 the Medical per tablet morning. Branc h Blood-Gluco 2021-11 Yes [id number] Check FBS Univers se Meter 2-27 DAILY ity of (GLUCOCARD 00:00: [place] SHINE 00 Medical METER) [facility] Branch lancets 2021-11 Yes [id number] Check Unive rs (TECHLITE 2-27 fasting BS ity of LANCETS) 28 00:00: daily [place] [address] Medical Branch blood sugar 2021-11 Yes [id number] Check U nivers diagnostic 2-27 fasting ity of (GLUCOCARD 00:00: blood [place] SHINE TEST 00 glucose Medica l STRIPS) daily Branch strip blood sugar 2021-11 Yes [id number] Check U nivers diagnostic 2-27 fasting ity of (GLUCOCARD 00:00: blood [place] SHINE TEST 00 glucose Medica l STRIPS) daily Branch strip glipiZIDE 2021-11 Yes [id number] 10mg Take 1 Un ines 10 mg 2-27 tablet by ity of tablet 00:00: mouth in [place] 00 the Medical morning. Branch lisinopriL- 2021-11 Yes [id number] 1{tbl} Take 1 Univers hydrochloro 2-27 tablet by ity of thiazide 00:00: mouth in [place] 20-12.5 mg 00 the Medical per tablet morning. [facility] Blood-Gluco 2021-11 Yes [id number] Check FBS Univers se Meter 2-27 DAILY ity of (GLUCOCARD 00:00: [place] SHINE 00 Medical METER) [facility] Branch lancets 2021-11 Yes [id number] Check Unive rs (TECHLITE 2-27 fasting BS ity of LANCETS) 28 00:00: daily [place] [address] Medical Branch blood sugar 2021-11 Yes [id number] Check U nivers diagnostic 2-27 fasting ity of (GLUCOCARD 00:00: blood [place] SHINE TEST 00 glucose Medica l STRIPS) daily Branch strip glipiZIDE 2021-11 Yes [id number] 10mg Take 1 Un ines 10 mg 2-27 tablet by ity of tablet 00:00: mouth in [place] 00 the Medical morning. Branch lisinopriL- 2021-11 Yes [id number] 1{tbl} Take 1 Univers hydrochloro 2-27 tablet by ity of thiazide 00:00: mouth in [place] 20-12.5 mg 00 the Medical per tablet morning. [facility] Blood-Gluco 2021-11 Yes [id number] Check FBS Univers se Meter 2-27 DAILY ity of (GLUCOCARD 00:00: [place] SHINE 00 Medical METER) [facility] Branch lancets 2021-11 Yes [id number] Check Unive rs (TECHLITE 2-27 fasting BS ity of LANCETS) 28 00:00: daily [address] Branch blood sugar 2021-11 Yes [id number] Check U nivers diagnostic 2-27 fasting ity of (GLUCOCARD 00:00: blood [place] SHINE TEST 00 glucose Medica l STRIPS) daily Branch strip glipiZIDE 2021-11 Yes [id number] 10mg Take 1 Un ines 10 mg 2-27 tablet by ity of tablet 00:00: mouth in [place] the Medical morning. Branch lisinopriL- 2021-11 Yes [id number] 1{tbl} Take 1 Univers hydrochloro 2-27 tablet by ity of thiazide 00:00: mouth in [place] 20-12.5 mg 00 the Medical per tablet morning. [facility] Blood-Gluco 2021-11 Yes [id number] Check FBS Univers se Meter 2-27 DAILY ity of (GLUCOCARD 00:00: [place] SHINE 00 Medical METER) [facility] Branch lancets 2021-11 Yes [id number] Check Unive rs (TECHLITE 2-27 fasting BS ity of LANCETS) 28 00:00: daily [place] [address] Medical Branch blood sugar 2021-11 Yes [id number] Check U nivers diagnostic 2-27 fasting ity of (GLUCOCARD 00:00: blood [place] SHINE TEST 00 glucose Medica l STRIPS) daily Branch strip glipiZIDE 2021-11 Yes [id number] 10mg Take 1 Un ines 10 mg 2-27 tablet by ity of tablet 00:00: mouth in [place] 00 the Medical morning. Branch lisinopriL- 2021-11 Yes [id number] 1{tbl} Take 1 Univers hydrochloro 2-27 tablet by ity of thiazide 00:00: mouth in [place] 20-12.5 mg 00 the Medical per tablet morning. [facility] Blood-Gluco 2021-11 Yes [id number] Check FBS Univers se Meter 2-27 DAILY ity of (GLUCOCARD 00:00: [place] SHINE 00 Medical METER) [facility] Branch lancets 2021-11 Yes [id number] Check Unive rs (TECHLITE 2-27 fasting BS ity of LANCETS) 28 00:00: daily [facility] [facility] Medical Branch blood sugar 2021-11 Yes [id number] Check U nivers diagnostic 2-27 fasting ity of (GLUCOCARD 00:00: blood [place] SHINE TEST 00 glucose Medica l STRIPS) daily Branch strip glipiZIDE 2021-11 Yes [id number] 10mg Take 1 Un ines 10 mg 2-27 tablet by ity of tablet 00:00: mouth in [place] 00 the Medical morning. Branch lisinopriL- 2021-11 Yes [id number] 1{tbl} Take 1 Univers hydrochloro 2-27 tablet by ity of thiazide 00:00: mouth in [place] 20-12.5 mg 00 the Medical per tablet morning. [facility] h Blood-Gluco 2021-11 Yes [id number] Check FBS Univers se Meter 2-27 DAILY ity of (GLUCOCARD 00:00: [place] SHINE 00 Medical METER) [facility] Branch lancets 2021-11 Yes [id number] Check Unive rs (TECHLITE 2-27 fasting BS ity of LANCETS) 28 00:00: daily [place] [address] Medical Branch blood sugar 2021-11 Yes [id number] Check U nivers diagnostic 2-27 fasting ity of (GLUCOCARD 00:00: blood [place] SHINE TEST 00 glucose Medica l STRIPS) daily Branch strip glipiZIDE 2021-11 Yes [id number] 10mg Take 1 Un ines 10 mg 2-27 tablet by ity of tablet 00:00: mouth in [place] 00 the Medical morning. Branch lisinopriL- 2021-11 Yes [id number] 1{tbl} Take 1 Univers hydrochloro 2-27 tablet by ity of thiazide 00:00: mouth in [place] 20-12.5 mg 00 the Medical per tablet morning. Bran h Blood-Gluco 2021-11 Yes [id number] Check FBS Univers se Meter 2-27 DAILY ity of (GLUCOCARD 00:00: [place] SHINE 00 Medical METER) [facility] Branch lancets 2021-11 Yes [id number] Check Unive rs (TECHLITE 2-27 fasting BS ity of LANCETS) 28 00:00: daily [place] [address] Medical Branch blood sugar 2021-11 Yes [id number] Check U nivers diagnostic 2-27 fasting ity of (GLUCOCARD 00:00: blood [place] SHINE TEST 00 glucose Medica l STRIPS) daily Branch strip metFORMIN 2021-11 Yes [id number] 1000mg Take 1 Univers 1,000 mg 2-27 tablet by ity of tablet 00:00: mouth in [place] 00 the Medical morning Branch and 1 tablet in the evening. Take with meals. glipiZIDE 2021-11 Yes [id number] 10mg Take 1 Un ines 10 mg 2-27 tablet by ity of tablet 00:00: mouth in [place] 00 the Medical morning. Branch glipiZIDE 2021-11 Yes [id number] 10mg Take 1 Un ines 10 mg 2-27 tablet by ity of tablet 00:00: mouth in [place] 00 the Medical morning. Branch lisinopriL- 2021-11 Yes [id number] 1{tbl} Take 1 Univers hydrochloro 2-27 tablet by ity of thiazide 00:00: mouth in [place] 20-12.5 mg 00 the Medical per tablet morning. [facility] h lancets 2021-11 Yes [id number] Check Unive rs (TECHLITE 2-27 fasting BS ity of LANCETS) 28 00:00: daily [facility] [facility] 00 Medical Branch lisinopriL- 2021-11 Yes [id number] 1{tbl} Take 1 Univers hydrochloro 2-27 tablet by ity of thiazide 00:00: mouth in [place] 20-12.5 mg 00 the Medical per tablet morning. Bran h blood sugar 2021-11 Yes [id number] Check U nivers diagnostic 2-27 fasting ity of (GLUCOCARD 00:00: blood [place] SHINE TEST 00 glucose Medica l STRIPS) daily Branch strip gabapentin 2021-11 Yes [id number] 400mg Take 1 Univers 400 mg 2-27 capsule by ity of capsule 00:00: mouth 2 [place] 00 (two) Medical times Branch daily as needed for Pain (scale 4-6). glipiZIDE 2021-11 Yes [id number] 10mg Take 1 Un ines 10 mg 2-27 tablet by ity of tablet 00:00: mouth in [place] 00 the Medical morning. Branch lisinopriL- 2021-11 Yes [id number] 1{tbl} Take 1 Univers hydrochloro 2-27 tablet by ity of thiazide 00:00: mouth in [place] 20-12.5 mg 00 the Medical per tablet morning. [facility] SERTraline 2021-11 Yes [id number] 50mg Take 1 Univers (ZOLOFT) 50 2-27 tablet by ity of mg tablet 00:00: mouth in [facility] 00 the Medical morning. Branch lancets 2021-11 Yes [id number] Check Unive rs (TECHLITE 2-27 fasting BS ity of LANCETS) 28 00:00: daily [place] [address] Medical Branch blood sugar 2021-11 Yes [id number] Check U nivers diagnostic 2-27 fasting ity of (GLUCOCARD 00:00: blood [place] SHINE TEST 00 glucose Medica l STRIPS) daily Branch strip Blood-Gluco 2021-11 Yes [id number] Check FBS Univers se Meter 2-27 DAILY ity of (GLUCOCARD 00:00: [place] SHINE 00 Medical METER) [facility] glipiZIDE 2021-11 Yes [id number] 10mg Take 1 Un ines 10 mg 2-27 tablet by ity of tablet 00:00: mouth in [place] the Medical morning. Branch lancets 2021-11 Yes [id number] Check Unive rs (TECHLITE 2-27 fasting BS ity of LANCETS) 28 00:00: daily [place] [address] Medical Branch lisinopriL- 2021-11 Yes [id number] 1{tbl} Take 1 Univers hydrochloro 2-27 tablet by ity of thiazide 00:00: mouth in [place] 20-12.5 mg 00 the Medical per tablet morning. [facility] lancets 2021-11 Yes [id number] Check Unive rs (TECHLITE 2-27 fasting BS ity of LANCETS) 28 00:00: daily [place] [address] Medical Branch blood sugar 2021-11 Yes [id number] Check U nivers diagnostic 2-27 fasting ity of (GLUCOCARD 00:00: blood [place] SHINE TEST 00 glucose Medica l STRIPS) daily Branch strip blood sugar 2021-11 Yes [id number] Check U nivers diagnostic 2-27 fasting ity of (GLUCOCARD 00:00: blood [place] SHINE TEST 00 glucose Medica l STRIPS) daily Branch strip glipiZIDE 2021-11 Yes [id number] 10mg Take 1 Un ines 10 mg 2-27 tablet by ity of tablet 00:00: mouth in [place] 00 the Medical morning. Branch lisinopriL- 2021-11 Yes [id number] 1{tbl} Take 1 Univers hydrochloro 2-27 tablet by ity of thiazide 00:00: mouth in [place] 20-12.5 mg 00 the Medical per tablet morning. Bran h lancets 2021-11 Yes [id number] Check Unive rs (TECHLITE 2-27 fasting BS ity of LANCETS) 28 00:00: daily [place] [address] Medical Branch blood sugar 2021-11 Yes [id number] Check U nivers diagnostic 2-27 fasting ity of (GLUCOCARD 00:00: blood [place] SHINE TEST 00 glucose Medica l STRIPS) daily Branch strip glipiZIDE 2021-11 Yes [id number] 10mg Take 1 Un ines 10 mg 2-27 tablet by ity of tablet 00:00: mouth in [place] 00 the Medical morning. Branch lisinopriL- 2021-11 Yes [id number] 1{tbl} Take 1 Univers hydrochloro 2-27 tablet by ity of thiazide 00:00: mouth in [place] 20-12.5 mg 00 the Medical per tablet morning. [facility] h lancets 2021-11 Yes [id number] Check Unive rs (TECHLITE 2-27 fasting BS ity of LANCETS) 28 00:00: daily [address] Branch blood sugar 2021-11 Yes [id number] Check U nivers diagnostic 2-27 fasting ity of (GLUCOCARD 00:00: blood [place] SHINE TEST 00 glucose Medica l STRIPS) daily Branch strip glipiZIDE 2021-11 Yes [id number] 10mg Take 1 Un ines 10 mg 2-27 tablet by ity of tablet 00:00: mouth in [place] 00 the Medical morning. Branch lisinopriL- 2021-11 Yes [id number] 1{tbl} Take 1 Univers hydrochloro 2-27 tablet by ity of thiazide 00:00: mouth in [place] 20-12.5 mg 00 the Medical per tablet morning. Bran h lancets 2021-11 Yes [id number] Check Unive rs (TECHLITE 2-27 fasting BS ity of LANCETS) 28 00:00: daily [address] Branch blood sugar 2021-11 Yes [id number] Check U nivers diagnostic 2-27 fasting ity of (GLUCOCARD 00:00: blood [place] SHINE TEST 00 glucose Medica l STRIPS) daily Branch strip metFORMIN 2021-11 Yes [id number] 1000mg Take 1 Univers 1,000 mg 2-27 tablet by ity of tablet 00:00: mouth in [place] 00 the Medical morning Branch and 1 tablet in the evening. Take with meals. glipiZIDE 2021-11 Yes [id number] 10mg Take 1 Un ines 10 mg 2-27 tablet by ity of tablet 00:00: mouth in [place] 00 the Medical morning. Branch lisinopriL- 2021-11 Yes [id number] 1{tbl} Take 1 Univers hydrochloro 2-27 tablet by ity of thiazide 00:00: mouth in [place] 20-12.5 mg 00 the Medical per tablet morning. Bran h glipiZIDE 2021-11 Yes [id number] 10mg Take 1 Un ines 10 mg 2-27 tablet by ity of tablet 00:00: mouth in [place] 00 the Medical morning. Branch lancets 2021-11 Yes [id number] Check Unive rs (TECHLITE 2-27 fasting BS ity of LANCETS) 28 00:00: daily [place] gauge [facility] 00 Medical Branch blood sugar 2021-11 Yes [id number] Check U nivers diagnostic 2-27 fasting ity of (GLUCOCARD 00:00: blood [place] SHINE TEST 00 glucose Medica l STRIPS) daily Branch strip gabapentin 2021-11 Yes [id number] 400mg Take 1 Univers 400 mg 2-27 capsule by ity of capsule 00:00: mouth 2 [place] 00 (two) Medical times Branch daily as needed for Pain (scale 4-6). SERTraline 2021-11 Yes [id number] 50mg Take 1 Univers (ZOLOFT) 50 2-27 tablet by ity of mg tablet 00:00: mouth in [facility] 00 the Medical morning. Branch Blood-Gluco 2021-11 Yes [id number] Check FBS Univers se Meter 2-27 DAILY ity of (GLUCOCARD 00:00: [place] [facility] 00 Medical METER) [facility] glipiZIDE 2021-11 Yes [id number] 10mg Take 1 Un ines 10 mg 2-27 tablet by ity of tablet 00:00: mouth in [place] 00 the Medical morning. Branch lancets 2021-11 Yes [id number] Check Unive rs (TECHLITE 2-27 fasting BS ity of LANCETS) 28 00:00: daily [facility] [facility] Medical Branch blood sugar 2021-11 Yes [id number] Check U nivers diagnostic 2-27 fasting ity of (GLUCOCARD 00:00: blood [place] SHINE TEST 00 glucose Medica l STRIPS) daily Branch strip lancets 2021-11 Yes [id number] Check Unive rs (TECHLITE 2-27 fasting BS ity of LANCETS) 28 00:00: daily [facility] Medical Branch blood sugar 2021-11 Yes [id number] Check U nivers diagnostic 2-27 fasting ity of (GLUCOCARD 00:00: blood [place] SHINE TEST 00 glucose Medica l STRIPS) daily Branch strip glipiZIDE 2021-11 Yes [id number] 10mg Take 1 Un ines 10 mg 2-27 tablet by ity of tablet 00:00: mouth in [place] 00 the Medical morning. Branch lancets 2021-11 Yes [id number] Check Unive rs (TECHLITE 2-27 fasting BS ity of LANCETS) 28 00:00: daily [facility] Medical Branch blood sugar 2021-11 Yes [id number] Check U nivers diagnostic 2-27 fasting ity of (GLUCOCARD 00:00: blood [place] SHINE TEST 00 glucose Medica l STRIPS) daily Branch strip glipiZIDE 2021-11 Yes [id number] 10mg Take 1 Un ines 10 mg 2-27 tablet by ity of tablet 00:00: mouth in [place] the Medical morning. Branch lancets 2021-11 Yes [id number] Check Unive rs (TECHLITE 2-27 fasting BS ity of LANCETS) 28 00:00: daily [facility] [facility] Medical Branch blood sugar 2021-11 Yes [id number] Check U nivers diagnostic 2-27 fasting ity of (GLUCOCARD 00:00: blood [place] SHINE TEST 00 glucose Medica l STRIPS) daily Branch strip glipiZIDE 2021-11 Yes [id number] 10mg Take 1 Un ines 10 mg 2-27 tablet by ity of tablet 00:00: mouth in [place] the Medical morning. Branch lancets 2021-11 Yes [id number] Check Unive rs (TECHLITE 2-27 fasting BS ity of LANCETS) 28 00:00: daily [facility] [facility] Medical Branch blood sugar 2021-11 Yes [id number] Check U nivers diagnostic 2-27 fasting ity of (GLUCOCARD 00:00: blood [place] SHINE TEST 00 glucose Medica l STRIPS) daily Branch strip glipiZIDE 2021-11 Yes [id number] 10mg Take 1 Un ines 10 mg 2-27 tablet by ity of tablet 00:00: mouth in [place] 00 the Medical morning. Branch lancets 2021-11 Yes [id number] Check Unive rs (TECHLITE 2-27 fasting BS ity of LANCETS) 28 00:00: daily [place] [address] Medical Branch blood sugar 2021-11 Yes [id number] Check U nivers diagnostic 2-27 fasting ity of (GLUCOCARD 00:00: blood [place] SHINE TEST 00 glucose Medica l STRIPS) daily Branch strip metFORMIN 2021-11 Yes [id number] 1000mg Take 1 Univers 1,000 mg 2-27 tablet by ity of tablet 00:00: mouth in [place] 00 the Medical morning Branch and 1 tablet in the evening. Take with meals. glipiZIDE 2021-11 Yes [id number] 10mg Take 1 Un ines 10 mg 2-27 tablet by ity of tablet 00:00: mouth in [place] 00 the Medical morning. Branch lancets 2021-11 Yes [id number] Check Unive rs (TECHLITE 2-27 fasting BS ity of LANCETS) 28 00:00: daily [place] [address] Medical Branch blood sugar 2021-11 Yes [id number] Check U nivers diagnostic 2-27 fasting ity of (GLUCOCARD 00:00: blood [place] SHINE TEST 00 glucose Medica l STRIPS) daily Branch strip glipiZIDE 2021-11 Yes [id number] 10mg Take 1 Un ines 10 mg 2-27 tablet by ity of tablet 00:00: mouth in [place] 00 the Medical morning. Branch glipiZIDE 2021-11 Yes [id number] 10mg Take 1 Un ines 10 mg 2-27 tablet by ity of tablet 00:00: mouth in [place] 00 the Medical morning. Branch lisinopriL- 2021-11 Yes [id number] 1{tbl} Take 1 Univers hydrochloro 2-27 tablet by ity of thiazide 00:00: mouth in [place] 20-12.5 mg 00 the Medical per tablet morning. Bran h lancets 2021-11 Yes [id number] Check Unive rs (TECHLITE 2-27 fasting BS ity of LANCETS) 28 00:00: daily [facility] [facility] Medical Branch blood sugar 2021-11 Yes [id number] Check U nivers diagnostic 2-27 fasting ity of (GLUCOCARD 00:00: blood [place] SHINE TEST 00 glucose Medica l STRIPS) daily Branch strip gabapentin 2021-11 Yes [id number] 400mg Take 1 Univers 400 mg 2-27 capsule by ity of capsule 00:00: mouth (two) Medical times Branch daily as needed for Pain (scale 4-6). SERTraline 2021-11 Yes [id number] 50mg Take 1 Univers (ZOLOFT) 50 2-27 tablet by ity of mg tablet 00:00: mouth in [facility] the Medical morning. Branch glipiZIDE 2021-11 Yes [id number] 10mg Take 1 Un ines 10 mg 2-27 tablet by ity of tablet 00:00: mouth in [place] the Medical morning. Branch lancets 2021-11 Yes [id number] Check Unive rs (TECHLITE 2-27 fasting BS ity of LANCETS) 28 00:00: daily [place] [address] Medical Branch blood sugar 2021-11 Yes [id number] Check U nivers diagnostic 2-27 fasting ity of (GLUCOCARD 00:00: blood [place] SHINE TEST 00 glucose Medica l STRIPS) daily Branch strip Blood-Gluco 2021-11 Yes [id number] Check FBS Univers se Meter 2-27 DAILY ity of (GLUCOCARD 00:00: [place] SHINE 00 Medical METER) [facility] Branch lancets 2021-11 Yes [id number] Check Unive rs (TECHLITE 2-27 fasting BS ity of LANCETS) 28 00:00: daily [place] [address] Medical Branch blood sugar 2021-11 Yes [id number] Check U nivers diagnostic 2-27 fasting ity of (GLUCOCARD 00:00: blood [place] SHINE TEST 00 glucose Medica l STRIPS) daily Branch strip glipiZIDE 2021-11 Yes [id number] 10mg Take 1 Un ines 10 mg 2-27 tablet by ity of tablet 00:00: mouth in [place] the Medical morning. Branch lancets 2021-11 Yes [id number] Check Unive rs (TECHLITE 2-27 fasting BS ity of LANCETS) 28 00:00: daily [facility] [facility] Medical Branch blood sugar 2021-11 Yes [id number] Check U nivers diagnostic 2-27 fasting ity of (GLUCOCARD 00:00: blood [place] SHINE TEST 00 glucose Medica l STRIPS) daily Branch strip glipiZIDE 2021-11 Yes [id number] 10mg Take 1 Un ines 10 mg 2-27 tablet by ity of tablet 00:00: mouth in [place] the Medical morning. Branch lancets 2021-11 Yes [id number] Check Unive rs (TECHLITE 2-27 fasting BS ity of LANCETS) 28 00:00: daily [facility] Medical Branch blood sugar 2021-11 Yes [id number] Check U nivers diagnostic 2-27 fasting ity of (GLUCOCARD 00:00: blood [place] SHINE TEST 00 glucose Medica l STRIPS) daily Branch strip glipiZIDE 2021-11 Yes [id number] 10mg Take 1 Un ines 10 mg 2-27 tablet by ity of tablet 00:00: mouth in [place] the Medical morning. Branch lancets 2021-11 Yes [id number] Check Unive rs (TECHLITE 2-27 fasting BS ity of LANCETS) 28 00:00: daily [facility] Medical Branch blood sugar 2021-11 Yes [id number] Check U nivers diagnostic 2-27 fasting ity of (GLUCOCARD 00:00: blood [place] SHINE TEST 00 glucose Medica l STRIPS) daily Branch strip metFORMIN 2021-11 Yes [id number] 1000mg Take 1 Univers 1,000 mg 2-27 tablet by ity of tablet 00:00: mouth in [place] the Medical morning Branch and 1 tablet in the evening. Take with meals. glipiZIDE 2021-11 Yes [id number] 10mg Take 1 Un ines 10 mg 2-27 tablet by ity of tablet 00:00: mouth in [place] the Medical morning. Branch lancets 2021-11 Yes [id number] Check Unive rs (TECHLITE 2-27 fasting BS ity of LANCETS) 28 00:00: daily [facility] Medical Branch blood sugar 2021-11 Yes [id number] Check U nivers diagnostic 2-27 fasting ity of (GLUCOCARD 00:00: blood [place] SHINE TEST 00 glucose Medica l STRIPS) daily Branch strip glipiZIDE 2021-11 Yes [id number] 10mg Take 1 Un ines 10 mg 2-27 tablet by ity of tablet 00:00: mouth in [place] 00 the Medical morning. Branch glipiZIDE 2021-11 Yes [id number] 10mg Take 1 Un ines 10 mg 2-27 tablet by ity of tablet 00:00: mouth in [place] 00 the Medical morning. Branch lancets 2021-11 Yes [id number] Check Unive rs (TECHLITE 2-27 fasting BS ity of LANCETS) 28 00:00: daily [place] [address] Medical Branch blood sugar 2021-11 Yes [id number] Check U nivers diagnostic 2-27 fasting ity of (GLUCOCARD 00:00: blood [place] SHINE TEST 00 glucose Medica l STRIPS) daily Branch strip lisinopriL- 2021-11 Yes [id number] 1{tbl} Take 1 [facility] hydrochloro 2-27 tablet by ity of thiazide 00:00: mouth in [place] 20-12.5 mg 00 the Medical per tablet morning. [facility] h gabapentin 2021-11 Yes [id number] 400mg Take 1 [facility] 400 mg 2-27 capsule by ity of capsule 00:00: mouth [place] 00 (two) Medical times Branch daily as needed for Pain (scale 4-6). glipiZIDE 2021-11 Yes [id number] 10mg Take 1 Un ines 10 mg 2-27 tablet by ity of tablet 00:00: mouth in [place] 00 the Medical morning. Branch lancets 2021-11 Yes [id number] Check Unive rs (TECHLITE 2-27 fasting BS ity of LANCETS) 28 00:00: daily [place] [address] Medical Branch blood sugar 2021-11 Yes [id number] Check U nivers diagnostic 2-27 fasting ity of (GLUCOCARD 00:00: blood [place] SHINE TEST 00 glucose Medica l STRIPS) daily Branch strip SERTraline 2021-11 Yes [id number] 50mg Take 1 Univers (ZOLOFT) 50 2-27 tablet by ity of mg tablet 00:00: mouth in [facility] s 00 the Medical morning. Branch Blood-Gluco 2021-11 Yes [id number] Check FBS Univers se Meter 2-27 DAILY ity of (GLUCOCARD 00:00: [place] SHINE 00 Medical METER) [facility] glipiZIDE 2021-11 Yes [id number] 10mg Take 1 Un ines 10 mg 2-27 tablet by ity of tablet 00:00: mouth in [place] 00 the Medical morning. Branch lancets 2021-11 Yes [id number] Check Unive rs (TECHLITE 2-27 fasting BS ity of LANCETS) 28 00:00: daily [address] Branch blood sugar 2021-11 Yes [id number] Check U nivers diagnostic 2-27 fasting ity of (GLUCOCARD 00:00: blood [place] SHINE TEST 00 glucose Medica l STRIPS) daily Branch strip lancets 2021-11 Yes [id number] Check Unive rs (TECHLITE 2-27 fasting BS ity of LANCETS) 28 00:00: daily [address] Branch blood sugar 2021-11 Yes [id number] Check U nivers diagnostic 2-27 fasting ity of (GLUCOCARD 00:00: blood [place] SHINE TEST 00 glucose Medica l STRIPS) daily Branch strip metFORMIN 2021-11 Yes [id number] 1000mg Take 1 Univers 1,000 mg 2-27 tablet by ity of tablet 00:00: mouth in [place] 00 the Medical morning Branch and 1 tablet in the evening. Take with meals. glipiZIDE 2021-11 Yes [id number] 10mg Take 1 Un ines 10 mg 2-27 tablet by ity of tablet 00:00: mouth in [place] 00 the Medical morning. Branch lisinopriL- 2021-11 Yes [id number] 1{tbl} Take 1 [facility] hydrochloro 2-27 tablet by ity of thiazide 00:00: mouth in [place] 20-12.5 mg 00 the Medical per tablet morning. [facility] h gabapentin 2021-11 Yes [id number] 400mg Take 1 [facility] 400 mg 2-27 capsule by ity of capsule 00:00: mouth 2 [place] 00 (two) Medical times [place] daily as needed for Pain (scale 4-6). SERTraline 2021-11 Yes [id number] 50mg Take 1 Univers (ZOLOFT) 50 2-27 tablet by ity of mg tablet 00:00: mouth in [facility] 00 the Medical morning. Branch Blood-Gluco 2021-11 Yes [id number] Check FBS Univers se Meter 2-27 DAILY ity of (GLUCOCARD 00:00: [place] SHINE 00 Medical METER) [facility] lancets 2021-11 Yes [id number] Check Unive rs (TECHLITE 2-27 fasting BS ity of LANCETS) 28 00:00: daily [place] [facility] 00 Medical Branch blood sugar 2021-11 Yes [id number] Check U nivers diagnostic 2-27 fasting ity of (GLUCOCARD 00:00: blood [place] SHINE TEST 00 glucose Medica l STRIPS) daily Branch strip metFORMIN 2021-11 Yes [id number] 1000mg Take 1 Univers 1,000 mg 2-27 tablet by ity of tablet 00:00: mouth in [place] 00 the Medical morning Branch and 1 tablet in the evening. Take with meals. glipiZIDE 2021-11 Yes [id number] 10mg Take 1 Un ines 10 mg 2-27 tablet by ity of tablet 00:00: mouth in [place] 00 the Medical morning. Branch lisinopriL- 2021-11 Yes [id number] 1{tbl} Take 1 Univers hydrochloro 2-27 tablet by ity of thiazide 00:00: mouth in [place] 20-12.5 mg 00 the Medical per tablet morning. [facility] h gabapentin 2021-11 Yes [id number] 400mg Take 1 [facility] 400 mg 2-27 capsule by ity of capsule 00:00: mouth 2 [place] 00 (two) Medical times [place] daily as needed for Pain (scale 4-6). SERTraline 2021-11 Yes [id number] 50mg Take 1 Univers (ZOLOFT) 50 2-27 tablet by ity of mg tablet 00:00: mouth in [facility] 00 the Medical morning. Branch Blood-Gluco 2021-11 Yes [id number] Check FBS Univers se Meter 2-27 DAILY ity of (GLUCOCARD 00:00: [place] SHINE 00 Medical METER) [facility] Branch lancets 2021-11 Yes [id number] Check Unive rs (TECHLITE 2-27 fasting BS ity of LANCETS) 28 00:00: daily [place] [facility] 00 [facility] Branch blood sugar 2021-11 Yes [id number] Check U nivers diagnostic 2-27 fasting ity of (GLUCOCARD 00:00: blood [place] SHINE TEST 00 glucose Medica l STRIPS) daily Branch strip metFORMIN 2021-11 Yes [id number] 1000mg Take 1 Univers 1,000 mg 2-27 tablet by ity of tablet 00:00: mouth in [place] 00 the Medical morning Branch and 1 tablet in the evening. Take with meals. glipiZIDE 2021-11 Yes [id number] 10mg Take 1 Un ines 10 mg 2-27 tablet by ity of tablet 00:00: mouth in [place] 00 the Medical morning. Branch lisinopriL- 2021-11 Yes [id number] 1{tbl} Take 1 [facility] hydrochloro 2-27 tablet by ity of thiazide 00:00: mouth in [place] 20-12.5 mg 00 the Medical per tablet morning. [facility] gabapentin 2021-11 Yes [id number] 400mg Take 1 Univers 400 mg 2-27 capsule by ity of capsule 00:00: mouth 2 [place] 00 (two) Medical times [place] daily as needed for Pain (scale 4-6). SERTraline 2021-11 Yes [id number] 50mg Take 1 Univers (ZOLOFT) 50 2-27 tablet by ity of mg tablet 00:00: mouth in [facility] 00 the Medical morning. Branch Blood-Gluco 2021-11 Yes [id number] Check FBS Univers se Meter 2-27 DAILY ity of (GLUCOCARD 00:00: [place] SHINE 00 Medical METER) [facility] lancets 2021-11 Yes [id number] Check Unive rs (TECHLITE 2-27 fasting BS ity of LANCETS) 28 00:00: daily [place] [facility] [address] blood sugar 2021-11 Yes [id number] Check U nivers diagnostic 2-27 fasting ity of (GLUCOCARD 00:00: blood [place] SHINE TEST 00 glucose Medica l STRIPS) daily Branch strip metFORMIN 2021-11 Yes [id number] 1000mg Take 1 Univers 1,000 mg 2-27 tablet by ity of tablet 00:00: mouth in [place] 00 the Medical morning Branch and 1 tablet in the evening. Take with meals. glipiZIDE 2021-11 Yes [id number] 10mg Take 1 Un ines 10 mg 2-27 tablet by ity of tablet 00:00: mouth in [place] 00 the Medical morning. Branch lisinopriL- 2021-11 Yes [id number] 1{tbl} Take 1 Univers hydrochloro 2-27 tablet by ity of thiazide 00:00: mouth in [place] 20-12.5 mg 00 the Medical per tablet morning. [facility] gabapentin 2021-11 Yes [id number] 400mg Take 1 Univers 400 mg 2-27 capsule by ity of capsule 00:00: mouth 2 [place] (two) Medical times [place] daily as needed for Pain (scale 4-6). SERTraline 2021-11 Yes [id number] 50mg Take 1 Univers (ZOLOFT) 50 2-27 tablet by ity of mg tablet 00:00: mouth in [place] [facility] s the Medical morning. Branch Blood-Gluco 2021-11 Yes [id number] Check FBS Univers se Meter 2-27 DAILY ity of (GLUCOCARD 00:00: [place] SHINE 00 Medical METER) [facility] Branch lancets 2021-11 Yes [id number] Check Unive rs (TECHLITE 2-27 fasting BS ity of LANCETS) 28 00:00: daily [place] [address] Branch blood sugar 2021-11 Yes [id number] Check U nivers diagnostic 2-27 fasting ity of (GLUCOCARD 00:00: blood [place] SHINE TEST 00 glucose Medica l STRIPS) daily Branch strip metFORMIN 2021-11 Yes [id number] 1000mg Take 1 Univers 1,000 mg 2-27 tablet by ity of tablet 00:00: mouth in [place] 00 the Medical morning Branch and 1 tablet in the evening. Take with meals. glipiZIDE 2021-11 Yes [id number] 10mg Take 1 Un ines 10 mg 2-27 tablet by ity of tablet 00:00: mouth in [place] the Medical morning. Branch lisinopriL- 2021-11 Yes [id number] 1{tbl} Take 1 Univers hydrochloro 2-27 tablet by ity of thiazide 00:00: mouth in [place] 20-12.5 mg 00 the Medical per tablet morning. [facility] h gabapentin 2021-11 Yes [id number] 400mg Take 1 Univers 400 mg 2-27 capsule by ity of capsule 00:00: mouth 2 [place] (two) Medical times [place] daily as needed for Pain (scale 4-6). SERTraline 2021-11 Yes [id number] 50mg Take 1 Univers (ZOLOFT) 50 2-27 tablet by ity of mg tablet 00:00: mouth in [facility] s the Medical morning. Branch Blood-Gluco 2021-11 Yes [id number] Check FBS Univers se Meter 2-27 DAILY ity of (GLUCOCARD 00:00: [place] SHINE 00 Medical METER) [facility] Branch lancets 2021-11 Yes [id number] Check Unive rs (TECHLITE 2-27 fasting BS ity of LANCETS) 28 00:00: daily [place] [facility] 00 Medical Branch blood sugar 2021-11 Yes [id number] Check U nivers diagnostic 2-27 fasting ity of (GLUCOCARD 00:00: blood [place] SHINE TEST 00 glucose Medica l STRIPS) daily Branch strip metFORMIN 2021-11 Yes [id number] 1000mg Take 1 Univers 1,000 mg 2-27 tablet by ity of tablet 00:00: mouth in [place] 00 the Medical morning Branch and 1 tablet in the evening. Take with meals. glipiZIDE 2021-11 Yes [id number] 10mg Take 1 Un ines 10 mg 2-27 tablet by ity of tablet 00:00: mouth in [place] 00 the Medical morning. Branch lisinopriL- 2021-11 Yes [id number] 1{tbl} Take 1 Univers hydrochloro 2-27 tablet by ity of thiazide 00:00: mouth in [place] 20-12.5 mg 00 the Medical per tablet morning. [facility] h gabapentin 2021-11 Yes [id number] 400mg Take 1 Univers 400 mg 2-27 capsule by ity of capsule 00:00: mouth 2 [place] 00 (two) Medical times [place] daily as needed for Pain (scale 4-6). SERTraline 2021-11 Yes [id number] 50mg Take 1 Univers (ZOLOFT) 50 2-27 tablet by ity of mg tablet 00:00: mouth in [facility] 00 the Medical morning. Branch Blood-Gluco 2021-11 Yes [id number] Check FBS Univers se Meter 2-27 DAILY ity of (GLUCOCARD 00:00: [place] SHINE 00 Medical METER) [facility] Branch lancets 2021-11 Yes [id number] Check Unive rs (TECHLITE 2-27 fasting BS ity of LANCETS) 28 00:00: daily [place] [facility] 00 [facility] Branch blood sugar 2021-11 Yes [id number] Check U nivers diagnostic 2-27 fasting ity of (GLUCOCARD 00:00: blood [place] SHINE TEST 00 glucose Medica l STRIPS) daily Branch strip metFORMIN 2021-11 Yes [id number] 1000mg Take 1 Univers 1,000 mg 2-27 tablet by ity of tablet 00:00: mouth in [place] 00 the Medical morning Branch and 1 tablet in the evening. Take with meals. glipiZIDE 2021-11 Yes [id number] 10mg Take 1 Un ines 10 mg 2-27 tablet by ity of tablet 00:00: mouth in [place] 00 the Medical morning. Branch lisinopriL- 2021-11 Yes [id number] 1{tbl} Take 1 Univers hydrochloro 2-27 tablet by ity of thiazide 00:00: mouth in [place] 20-12.5 mg 00 the Medical per tablet morning. [facility] gabapentin 2021-11 Yes [id number] 400mg Take 1 Univers 400 mg 2-27 capsule by ity of capsule 00:00: mouth 2 [place] 00 (two) Medical times [place] daily as needed for Pain (scale 4-6). SERTraline 2021-11 Yes [id number] 50mg Take 1 Univers (ZOLOFT) 50 2-27 tablet by ity of mg tablet 00:00: mouth in [facility] 00 the Medical morning. Branch Blood-Gluco 2021-11 Yes [id number] Check FBS Univers se Meter 2-27 DAILY ity of (GLUCOCARD 00:00: [place] SHINE 00 Medical METER) [facility] lancets 2021-11 Yes [id number] Check Unive rs (TECHLITE 2-27 fasting BS ity of LANCETS) 28 00:00: daily [place] gauge [address] blood sugar 2021-11 Yes [id number] Check U nivers diagnostic 2-27 fasting ity of (GLUCOCARD 00:00: blood [place] SHINE TEST 00 glucose Medica l STRIPS) daily Branch strip metFORMIN 2021-11 Yes [id number] 1000mg Take 1 Univers 1,000 mg 2-27 tablet by ity of tablet 00:00: mouth in [place] 00 the Medical morning Branch and 1 tablet in the evening. Take with meals. glipiZIDE 2021-11 Yes [id number] 10mg Take 1 Un ines 10 mg 2-27 tablet by ity of tablet 00:00: mouth in [place] 00 the Medical morning. Branch lisinopriL- 2021-11 Yes [id number] 1{tbl} Take 1 Univers hydrochloro 2-27 tablet by ity of thiazide 00:00: mouth in [place] 20-12.5 mg 00 the Medical per tablet morning. [facility] gabapentin 2021-11 Yes [id number] 400mg Take 1 Univers 400 mg 2-27 capsule by ity of capsule 00:00: mouth 2 [place] (two) Medical times [place] daily as needed for Pain (scale 4-6). SERTraline 2021-11 Yes [id number] 50mg Take 1 Univers (ZOLOFT) 50 2-27 tablet by ity of mg tablet 00:00: mouth in [place] [facility] s the Medical morning. Branch Blood-Gluco 2021-11 Yes [id number] Check FBS Univers se Meter 2-27 DAILY ity of (GLUCOCARD 00:00: [place] SHINE 00 Medical METER) [facility] Branch lancets 2021-11 Yes [id number] Check Unive rs (TECHLITE 2-27 fasting BS ity of LANCETS) 28 00:00: daily [place] [address] Branch blood sugar 2021-11 Yes [id number] Check U nivers diagnostic 2-27 fasting ity of (GLUCOCARD 00:00: blood [place] SHINE TEST 00 glucose Medica l STRIPS) daily Branch strip metFORMIN 2021-11 Yes [id number] 1000mg Take 1 Univers 1,000 mg 2-27 tablet by ity of tablet 00:00: mouth in [place] 00 the Medical morning Branch and 1 tablet in the evening. Take with meals. glipiZIDE 2021-11 Yes [id number] 10mg Take 1 Un ines 10 mg 2-27 tablet by ity of tablet 00:00: mouth in [place] the Medical morning. Branch lisinopriL- 2021-11 Yes [id number] 1{tbl} Take 1 Univers hydrochloro 2-27 tablet by ity of thiazide 00:00: mouth in [place] 20-12.5 mg 00 the Medical per tablet morning. [facility] h gabapentin 2021-11 Yes [id number] 400mg Take 1 Univers 400 mg 2-27 capsule by ity of capsule 00:00: mouth 2 [place] (two) Medical times [place] daily as needed for Pain (scale 4-6). SERTraline 2021-11 Yes [id number] 50mg Take 1 Univers (ZOLOFT) 50 2-27 tablet by ity of mg tablet 00:00: mouth in [facility] s the Medical morning. Branch Blood-Gluco 2021-11 Yes [id number] Check FBS Univers se Meter 2-27 DAILY ity of (GLUCOCARD 00:00: [place] SHINE 00 Medical METER) [facility] Branch lancets 2021-11 Yes [id number] Check Unive rs (TECHLITE 2-27 fasting BS ity of LANCETS) 28 00:00: daily [facility] [facility] 00 [facility] Branch blood sugar 2021-11 Yes [id number] Check U nivers diagnostic 2-27 fasting ity of (GLUCOCARD 00:00: blood [place] SHINE TEST 00 glucose Medica l STRIPS) daily Branch strip metFORMIN 2021-11 Yes [id number] 1000mg Take 1 Univers 1,000 mg 2-27 tablet by ity of tablet 00:00: mouth in [place] 00 the Medical morning Branch and 1 tablet in the evening. Take with meals. metFORMIN 2021-11 Yes [id number] 1000mg Take 1 Univers 1,000 mg 2-27 tablet by ity of tablet 00:00: mouth in [place] 00 the Medical morning Branch and 1 tablet in the evening. Take with meals. glipiZIDE 2021-11 Yes [id number] 10mg Take 1 Un ines 10 mg 2-27 tablet by ity of tablet 00:00: mouth in [place] 00 the Medical morning. [place] lisinopriL- 2021-11 Yes [id number] 1{tbl} Take 1 Univers hydrochloro 2-27 tablet by ity of thiazide 00:00: mouth in [place] 20-12.5 mg 00 the Medical per tablet morning. Bran h gabapentin 2021-11 Yes [id number] 400mg Take 1 [facility] 400 mg 2-27 capsule by ity of capsule 00:00: mouth 2 [place] 00 (two) Medical times [place] daily as needed for Pain (scale 4-6). SERTraline 2021-11 Yes [id number] 50mg Take 1 Univers (ZOLOFT) 50 2-27 tablet by ity of mg tablet 00:00: mouth in [facility] s 00 the Medical morning. Branch Blood-Gluco 2021-11 Yes [id number] Check FBS Univers se Meter 2-27 DAILY ity of (GLUCOCARD 00:00: [place] SHINE 00 Medical METER) [facility] lancets 2021-11 Yes [id number] Check Unive rs (TECHLITE 2-27 fasting BS ity of LANCETS) 28 00:00: daily [facility] [facility] 00 [facility] Branch glipiZIDE 2021-11 Yes [id number] 10mg Take 1 Un ines 10 mg 2-27 tablet by ity of tablet 00:00: mouth in [place] 00 the Medical morning. Branch blood sugar 2021-11 Yes [id number] Check U nivers diagnostic 2-27 fasting ity of (GLUCOCARD 00:00: blood [place] SHINE TEST 00 glucose Medica l STRIPS) daily Branch strip metFORMIN 2021-11 Yes [id number] 1000mg Take 1 Univers 1,000 mg 2-27 tablet by ity of tablet 00:00: mouth in [place] 00 the Medical morning Branch and 1 tablet in the evening. Take with meals. glipiZIDE 2021-11 Yes [id number] 10mg Take 1 Un ines 10 mg 2-27 tablet by ity of tablet 00:00: mouth in [place] 00 the Medical morning. [place] lisinopriL- 2021-11 Yes [id number] 1{tbl} Take 1 Univers hydrochloro 2-27 tablet by ity of thiazide 00:00: mouth in [place] 20-12.5 mg 00 the Medical per tablet morning. [facility] lisinopriL- 2021-11 Yes [id number] 1{tbl} Take 1 Univers hydrochloro 2-27 tablet by ity of thiazide 00:00: mouth in [place] 20-12.5 mg 00 the Medical per tablet morning. [facility] gabapentin 2021-11 Yes [id number] 400mg Take 1 Univers 400 mg 2-27 capsule by ity of capsule 00:00: mouth 2 [place] [address] (two) Medical times [place] daily as needed for Pain (scale 4-6). SERTraline 2021-11 Yes [id number] 50mg Take 1 Univers (ZOLOFT) 50 2-27 tablet by ity of mg tablet 00:00: mouth in [facility] the Medical morning. [place] Blood-Gluco 2021-11 Yes [id number] Check FBS Univers se Meter 2-27 DAILY ity of (GLUCOCARD 00:00: [place] SHINE 00 Medical METER) [facility] Branch lancets 2021-11 Yes [id number] Check Unive rs (TECHLITE 2-27 fasting BS ity of LANCETS) 28 00:00: daily [place] [facility] 00 [facility] Branch blood sugar 2021-11 Yes [id number] Check U nivers diagnostic 2-27 fasting ity of (GLUCOCARD 00:00: blood [place] SHINE TEST 00 glucose Medica l STRIPS) daily Branch strip gabapentin 2021-11 Yes [id number] 400mg Take 1 Univers 400 mg 2-27 capsule by ity of capsule 00:00: mouth 2 [place] 00 (two) Medical times [place] daily as needed for Pain (scale 4-6). metFORMIN 2021-11 Yes [id number] 1000mg Take 1 Univers 1,000 mg 2-27 tablet by ity of tablet 00:00: mouth in [place] [address] the Medical morning Branch and 1 tablet in the evening. Take with meals. glipiZIDE 2021-11 Yes [id number] 10mg Take 1 Un ines 10 mg 2-27 tablet by ity of tablet 00:00: mouth in [place] 00 the Medical morning. Branch lisinopriL- 2021-11 Yes [id number] 1{tbl} Take 1 Univers hydrochloro 2-27 tablet by ity of thiazide 00:00: mouth in [place] 20-12.5 mg 00 the [facility] per tablet morning. [facility] SERTraline 2021-11 Yes [id number] 50mg Take 1 Univers (ZOLOFT) 50 2-27 tablet by ity of mg tablet 00:00: mouth in [facility] the Medical morning. Branch SERTraline 2021-11 Yes [id number] 50mg Take 1 Univers (ZOLOFT) 50 2-27 tablet by ity of mg tablet 00:00: mouth in [facility] the Medical morning. Branch Blood-Gluco 2021-11 Yes [id number] Check FBS Univers se Meter 2-27 DAILY ity of (GLUCOCARD 00:00: [place] SHINE 00 Medical METER) [facility] lancets 2021-11 Yes [id number] Check Unive rs (TECHLITE 2-27 fasting BS ity of LANCETS) 28 00:00: daily [place] [address] blood sugar 2021-11 Yes [id number] Check U nivers diagnostic 2-27 fasting ity of (GLUCOCARD 00:00: blood [place] SHINE TEST 00 glucose Medica l STRIPS) daily Branch strip metFORMIN 2021-11 Yes [id number] 1000mg Take 1 Univers 1,000 mg 2-27 tablet by ity of tablet 00:00: mouth in [place] [address] the Medical morning Branch and 1 tablet in the evening. Take with meals. glipiZIDE 2021-11 Yes [id number] 10mg Take 1 Un ines 10 mg 2-27 tablet by ity of tablet 00:00: mouth in [place] 00 the Medical morning. Branch lisinopriL- 2021-11 Yes [id number] 1{tbl} Take 1 Univers hydrochloro 2-27 tablet by ity of thiazide 00:00: mouth in [place] 20-12.5 mg 00 the Medical per tablet morning. [facility] SERTraline 2021-11 Yes [id number] 50mg Take 1 Univers (ZOLOFT) 50 2-27 tablet by ity of mg tablet 00:00: mouth in [facility] the Medical morning. Branch Blood-Gluco 2021-11 Yes [id number] Check FBS Univers se Meter 2-27 DAILY ity of (GLUCOCARD 00:00: [place] SHINE 00 Medical METER) [facility] Branch lancets 2021-11 Yes [id number] Check Unive rs (TECHLITE 2-27 fasting BS ity of LANCETS) 28 00:00: daily [address] blood sugar 2021-11 Yes [id number] Check U nivers diagnostic 2-27 fasting ity of (GLUCOCARD 00:00: blood [place] SHINE TEST 00 glucose Medica l STRIPS) daily Branch strip metFORMIN 2021-11 Yes [id number] 1000mg Take 1 Univers 1,000 mg 2-27 tablet by ity of tablet 00:00: mouth in [place] [address] the Medical morning Branch and 1 tablet in the evening. Take with meals. glipiZIDE 2021-11 Yes [id number] 10mg Take 1 Un ines 10 mg 2-27 tablet by ity of tablet 00:00: mouth in [place] [address] the Medical morning. Branch lisinopriL- 2021-11 Yes [id number] 1{tbl} Take 1 Univers hydrochloro 2-27 tablet by ity of thiazide 00:00: mouth in [place] 20-12.5 mg 00 the Medical per tablet morning. [facility] SERTraline 2021-11 Yes [id number] 50mg Take 1 Univers (ZOLOFT) 50 2-27 tablet by ity of mg tablet 00:00: mouth in [facility] 00 the Medical morning. Branch Blood-Gluco 2021-11 Yes [id number] Check FBS Univers se Meter 2-27 DAILY ity of (GLUCOCARD 00:00: [place] SHINE 00 Medical METER) [facility] Branch lancets 2021-11 Yes [id number] Check Unive rs (TECHLITE 2-27 fasting BS ity of LANCETS) 28 00:00: daily [place] [facility] Medical Branch blood sugar 2021-11 Yes [id number] Check U nivers diagnostic 2-27 fasting ity of (GLUCOCARD 00:00: blood [place] SHINE TEST 00 glucose Medica l STRIPS) daily Branch strip metFORMIN 2021-11 Yes [id number] 1000mg Take 1 Univers 1,000 mg 2-27 tablet by ity of tablet 00:00: mouth in [place] 00 the Medical morning Branch and 1 tablet in the evening. Take with meals. glipiZIDE 2021-11 Yes [id number] 10mg Take 1 Un ines 10 mg 2-27 tablet by ity of tablet 00:00: mouth in [place] 00 the Medical morning. Branch lisinopriL- 2021-11 Yes [id number] 1{tbl} Take 1 Univers hydrochloro 2-27 tablet by ity of thiazide 00:00: mouth in [place] 20-12.5 mg 00 the Medical per tablet morning. [facility] SERTraline 2021-11 Yes [id number] 50mg Take 1 Univers (ZOLOFT) 50 2-27 tablet by ity of mg tablet 00:00: mouth in [facility] the Medical morning. Branch Blood-Gluco 2021-11 Yes [id number] Check FBS Univers se Meter 2-27 DAILY ity of (GLUCOCARD 00:00: [place] SHINE 00 Medical METER) [facility] lancets 2021-11 Yes [id number] Check Unive rs (TECHLITE 2-27 fasting BS ity of LANCETS) 28 00:00: daily [address] blood sugar 2021-11 Yes [id number] Check U nivers diagnostic 2-27 fasting ity of (GLUCOCARD 00:00: blood [place] SHINE TEST 00 glucose Medica l STRIPS) daily Branch strip metFORMIN 2021-11 Yes [id number] 1000mg Take 1 Univers 1,000 mg 2-27 tablet by ity of tablet 00:00: mouth in [place] 00 the Medical morning Branch and 1 tablet in the evening. Take with meals. glipiZIDE 2021-11 Yes [id number] 10mg Take 1 Un ines 10 mg 2-27 tablet by ity of tablet 00:00: mouth in [place] 00 the Medical morning. Branch lisinopriL- 2021-11 Yes [id number] 1{tbl} Take 1 Univers hydrochloro 2-27 tablet by ity of thiazide 00:00: mouth in [place] 20-12.5 mg 00 the Medical per tablet morning. [facility] SERTraline 2021-11 Yes [id number] 50mg Take 1 Univers (ZOLOFT) 50 2-27 tablet by ity of mg tablet 00:00: mouth in [facility] the Medical morning. Branch Blood-Gluco 2021-11 Yes [id number] Check FBS Univers se Meter 2-27 DAILY ity of (GLUCOCARD 00:00: [place] SHINE 00 Medical METER) [facility] lancets 2021-11 Yes [id number] Check Unive rs (TECHLITE 2-27 fasting BS ity of LANCETS) 28 00:00: daily [address] blood sugar 2021-11 Yes [id number] Check U nivers diagnostic 2-27 fasting ity of (GLUCOCARD 00:00: blood [place] SHINE TEST 00 glucose Medica l STRIPS) daily Branch strip metFORMIN 2021-11 Yes [id number] 1000mg Take 1 Univers 1,000 mg 2-27 tablet by ity of tablet 00:00: mouth in [place] [address] the Medical morning Branch and 1 tablet in the evening. Take with meals. glipiZIDE 2021-11 Yes [id number] 10mg Take 1 Un ines 10 mg 2-27 tablet by ity of tablet 00:00: mouth in [place] [address] the Medical morning. Branch lisinopriL- 2021-11 Yes [id number] 1{tbl} Take 1 Univers hydrochloro 2-27 tablet by ity of thiazide 00:00: mouth in [place] 20-12.5 mg 00 the Medical per tablet morning. [facility] SERTraline 2021-11 Yes [id number] 50mg Take 1 Univers (ZOLOFT) 50 2-27 tablet by ity of mg tablet 00:00: mouth in [facility] 00 the Medical morning. Branch Blood-Gluco 2021-11 Yes [id number] Check FBS Univers se Meter 2-27 DAILY ity of (GLUCOCARD 00:00: [place] SHINE 00 Medical METER) [facility] Branch lancets 2021-11 Yes [id number] Check Unive rs (TECHLITE 2-27 fasting BS ity of LANCETS) 28 00:00: daily [address] blood sugar 2021-11 Yes [id number] Check U nivers diagnostic 2-27 fasting ity of (GLUCOCARD 00:00: blood [place] SHINE TEST 00 glucose Medica l STRIPS) daily Branch strip metFORMIN 2021-11 Yes [id number] 1000mg Take 1 Univers 1,000 mg 2-27 tablet by ity of tablet 00:00: mouth in [place] [address] the Medical morning Branch and 1 tablet in the evening. Take with meals. glipiZIDE 2021-11 Yes [id number] 10mg Take 1 Un ines 10 mg 2-27 tablet by ity of tablet 00:00: mouth in [place] [address] the Medical morning. Branch lisinopriL- 2021-11 Yes [id number] 1{tbl} Take 1 Univers hydrochloro 2-27 tablet by ity of thiazide 00:00: mouth in [place] 20-12.5 mg 00 the Medical per tablet morning. [facility] SERTraline 2021-11 Yes [id number] 50mg Take 1 Univers (ZOLOFT) 50 2-27 tablet by ity of mg tablet 00:00: mouth in [facility] the Medical morning. Branch Blood-Gluco 2021-11 Yes [id number] Check FBS Univers se Meter 2-27 DAILY ity of (GLUCOCARD 00:00: [place] SHINE 00 Medical METER) [facility] lancets 2021-11 Yes [id number] Check Unive rs (TECHLITE 2-27 fasting BS ity of LANCETS) 28 00:00: daily [address] Branch blood sugar 2021-11 Yes [id number] Check U nivers diagnostic 2-27 fasting ity of (GLUCOCARD 00:00: blood [place] SHINE TEST 00 glucose Medica l STRIPS) daily Branch strip metFORMIN 2021-11 Yes [id number] 1000mg Take 1 Univers 1,000 mg 2-27 tablet by ity of tablet 00:00: mouth in [place] [address] the Medical morning Branch and 1 tablet in the evening. Take with meals. glipiZIDE 2021-11 Yes [id number] 10mg Take 1 Un ines 10 mg 2-27 tablet by ity of tablet 00:00: mouth in [place] [address] the Medical morning. Branch lisinopriL- 2021-11 Yes [id number] 1{tbl} Take 1 Univers hydrochloro 2-27 tablet by ity of thiazide 00:00: mouth in [place] 20-12.5 mg 00 the Medical per tablet morning. [facility] SERTraline 2021-11 Yes [id number] 50mg Take 1 Univers (ZOLOFT) 50 2-27 tablet by ity of mg tablet 00:00: mouth in [facility] 00 the Medical morning. Branch Blood-Gluco 2021-11 Yes [id number] Check FBS Univers se Meter 2-27 DAILY ity of (GLUCOCARD 00:00: [place] SHINE 00 Medical METER) [facility] Branch lancets 2021-11 Yes [id number] Check Unive rs (TECHLITE 2-27 fasting BS ity of LANCETS) 28 00:00: daily [address] Branch blood sugar 2021-11 Yes [id number] Check U nivers diagnostic 2-27 fasting ity of (GLUCOCARD 00:00: blood [place] SHINE TEST 00 glucose Medica l STRIPS) daily Branch strip metFORMIN 2021-11 Yes [id number] 1000mg Take 1 Univers 1,000 mg 2-27 tablet by ity of tablet 00:00: mouth in [place] the Medical morning Branch and 1 tablet in the evening. Take with meals. glipiZIDE 2021-11 Yes [id number] 10mg Take 1 Un ines 10 mg 2-27 tablet by ity of tablet 00:00: mouth in [place] 00 the Medical morning. Branch lisinopriL- 2021-11 Yes [id number] 1{tbl} Take 1 Univers hydrochloro 2-27 tablet by ity of thiazide 00:00: mouth in [place] 20-12.5 mg 00 the Medical per tablet morning. [facility] Blood-Gluco 2021-11 Yes [id number] Check FBS Univers se Meter 2-27 DAILY ity of (GLUCOCARD 00:00: [place] SHINE 00 Medical METER) [facility] Branch lancets 2021-11 Yes [id number] Check Unive rs (TECHLITE 2-27 fasting BS ity of LANCETS) 28 00:00: daily [address] Branch blood sugar 2021-11 Yes [id number] Check U nivers diagnostic 2-27 fasting ity of (GLUCOCARD 00:00: blood [place] SHINE TEST 00 glucose Medica l STRIPS) daily Branch strip metFORMIN 2021-11 Yes [id number] 1000mg Take 1 Univers 1,000 mg 2-27 tablet by ity of tablet 00:00: mouth in [place] 00 the Medical morning Branch and 1 tablet in the evening. Take with meals. glipiZIDE 2021-11 Yes [id number] 10mg Take 1 Un ines 10 mg 2-27 tablet by ity of tablet 00:00: mouth in [place] the Medical morning. Branch lisinopriL- 2021-11 Yes [id number] 1{tbl} Take 1 Univers hydrochloro 2-27 tablet by ity of thiazide 00:00: mouth in [place] 20-12.5 mg 00 the Medical per tablet morning. [facility] h Blood-Gluco 2021-11 Yes [id number] Check FBS Univers se Meter 2-27 DAILY ity of (GLUCOCARD 00:00: [place] SHINE 00 Medical METER) [facility] lancets 2021-11 Yes [id number] Check Unive rs (TECHLITE 2-27 fasting BS ity of LANCETS) 28 00:00: daily [address] blood sugar 2021-11 Yes [id number] Check U nivers diagnostic 2-27 fasting ity of (GLUCOCARD 00:00: blood [place] SHINE TEST 00 glucose Medica l STRIPS) daily Branch strip metFORMIN 2021-11 Yes [id number] 1000mg Take 1 Univers 1,000 mg 2-27 tablet by ity of tablet 00:00: mouth in [place] [address] the Medical morning Branch and 1 tablet in the evening. Take with meals. metFORMIN 2021-11 Yes [id number] 1000mg Take 1 Univers 1,000 mg 2-27 tablet by ity of tablet 00:00: mouth in [place] [address] the Medical morning Branch and 1 tablet in the evening. Take with meals. glipiZIDE 2021-11 Yes [id number] 10mg Take 1 Un ines 10 mg 2-27 tablet by ity of tablet 00:00: mouth in [place] the Medical morning. Branch lisinopriL- 2021-11 Yes [id number] 1{tbl} Take 1 Univers hydrochloro 2-27 tablet by ity of thiazide 00:00: mouth in [place] 20-12.5 mg 00 the Medical per tablet morning. Bran h Blood-Gluco 2021-11 Yes [id number] Check FBS Univers se Meter 2-27 DAILY ity of (GLUCOCARD 00:00: [place] SHINE 00 Medical METER) [facility] lancets 2021-11 Yes [id number] Check Unive rs (TECHLITE 2-27 fasting BS ity of LANCETS) 28 00:00: daily [address] blood sugar 2021-11 Yes [id number] Check U nivers diagnostic 2-27 fasting ity of (GLUCOCARD 00:00: blood [place] SHINE TEST 00 glucose Medica l STRIPS) daily Branch strip glipiZIDE 2021-11 Yes [id number] 10mg Take 1 Un ines 10 mg 2-27 tablet by ity of tablet 00:00: mouth in [place] 00 the Medical morning. Branch lisinopriL- 2021-11 Yes [id number] 1{tbl} Take 1 Univers hydrochloro 2-27 tablet by ity of thiazide 00:00: mouth in [place] 20-12.5 mg 00 the Medical per tablet morning. [facility] glipiZIDE 2021-11 Yes [id number] 10mg Take 1 Un ines 10 mg 2-27 tablet by ity of tablet 00:00: mouth in [place] 00 the Medical morning. Branch lisinopriL- 2021-11 Yes [id number] 1{tbl} Take 1 Univers hydrochloro 2-27 tablet by ity of thiazide 00:00: mouth in [place] 20-12.5 mg 00 the Medical per tablet morning. [facility] Blood-Gluco 2021-11 Yes [id number] Check FBS Univers se Meter 2-27 DAILY ity of (GLUCOCARD 00:00: [place] SHINE 00 Medical METER) [facility] lancets 2021-11 Yes [id number] Check Unive rs (TECHLITE 2-27 fasting BS ity of LANCETS) 28 00:00: daily [address] lisinopriL- 2021-11- No [id number] 1{tbl} Take 1 Univers hydrochloro 2-27 05-24 tablet by it y of thiazide 00:00: 00[place] 20-12.5 mg 00 :00 the Medical per tablet morning. [facility] lisinopriL- 2021-11- No [id number] 1{tbl} Take 1 Univers hydrochloro 2-27 05-24 tablet by it y of thiazide 00:00: 00[place] 20-12.5 mg 00 :00 the Medical per tablet morning. [facility] Blood-Gluco 2021-11- No [id number] Check FBS Univers se Meter 2-27 05-17 DAILY ity of (GLUCOCARD 00:00: 00:00 [place] SHINE 00 :00 Medical METER) [facility] Blood-Gluco 2021-11- No [id number] Check FBS Univers se Meter 01-23-17 DAILY ity of (GLUCOCARD 00:00: 00:00 [place] SHINE 00 :00 Medical METER) [facility] Blood-Gluco 2021-11- No [id number] Check FBS Univers se Meter 01-23- DAILY ity of (GLUCOCARD 00:00: 00:00 [place] SHINE 00 :00 Medical METER) [facility] Blood-Gluco 2021-11- No [id number] Check FBS Univers se Meter 01-23- DAILY ity of (GLUCOCARD 00:00: 00:00 [place] SHINE 00 :00 Medical METER) [facility] Blood-Gluco 2021-11- No [id number] Check FBS Univers se Meter 01-23 DAILY ity of (GLUCOCARD 00:00: 00:00 [place] SHINE 00 :00 Medical METER) [facility] metFORMIN 2021-11- No [id number] 1000mg Take 1 Univers 1,000 mg 01-23 tablet by ity o f tablet 00:00: 00:00 mouth in [place] 00 :00 the Medical morning Branch and 1 tablet in the evening. Take with meals. metFORMIN 2021-11- No [id number] 1000mg Take 1 Univers 1,000 mg 01-23 tablet by ity o f tablet 00:00: 00:00 mouth in [place] 00 :00 the Medical morning Branch and 1 tablet in the evening. Take with meals. SERTraline 2021-11- No [id number] 50mg Take 1 Univers (ZOLOFT) 50 01-23 tablet by it y of mg tablet 00:00: 00:00 mouth in [place] 00 :00 the Medical morning. Branch gabapentin 2021-11- No [id number] 400mg Take 1 Univers 400 mg 01-23 capsule by ity of capsule 00:00: 00:00 mouth 2 [place] 00 :00 (two) Medical times Branch daily as needed for Pain (scale 4-6). Immunizations Ordered Filled Immunization Date Status Comments [facility] e Immunization Name Name Influenza Virus 2023-01-06 Completed Universit y of Vaccine Quad IM, 00:00:00 [place] Me dical Preserv and ABX Branch Free 6 MO-64 YRS Influenza Virus 2023-01-06 Completed Universit y of Vaccine Quad IM, 00:00:00 [place] Me dical Preserv and ABX Branch Free 6 MO-64 YRS Influenza Virus 2023-01-06 Completed Universit y of Vaccine Quad IM, 00:00:00 [place] Me dical Preserv and ABX Branch Free 6 MO-64 YRS Influenza Virus 2023-01-06 Completed Universit y of Vaccine Quad IM, 00:00:00 [place] Me dical Preserv and ABX Branch Free 6 MO-64 YRS Influenza Virus 2023-01-06 Completed Universit y of Vaccine Quad IM, 00:00:00 [place] Me dical Preserv and ABX Branch Free 6 MO-64 YRS Influenza Virus 2023-01-06 Completed Universit y of Vaccine Quad IM, 00:00:00 [place] Me dical Preserv and ABX Branch Free 6 MO-64 YRS Influenza Virus 2023-01-06 Completed Universit y of Vaccine Quad IM, 00:00:00 [place] Me dical Preserv and ABX Branch Free 6 MO-64 YRS Influenza Virus 2023-01-06 Completed Universit y of Vaccine Quad IM, 00:00:00 [place] Me dical Preserv and ABX Branch Free 6 MO-64 YRS Influenza Virus 2023-01-06 Completed Universit y of Vaccine Quad IM, 00:00:00 [place] Me dical Preserv and ABX Branch Free 6 MO-64 YRS Influenza Virus 2023-01-06 Completed Universit y of Vaccine Quad IM, 00:00:00 [place] Me dical Preserv and ABX Branch Free 6 MO-64 YRS Influenza Virus 2023-01-06 Completed Universit y of Vaccine Quad IM, 00:00:00 [place] Me dical Preserv and ABX Branch Free 6 MO-64 YRS Influenza Virus 2023-01-06 Completed Universit y of Vaccine Quad IM, 00:00:00 [place] Me dical Preserv and ABX Branch Free 6 MO-64 YRS Influenza Virus 2023-01-06 Completed Universit y of Vaccine Quad IM, 00:00:00 [place] Me dical Preserv and ABX Branch Free 6 MO-64 YRS Influenza Virus 2023-01-06 Completed Universit y of Vaccine Quad IM, 00:00:00 [place] Me dical Preserv and ABX Branch Free 6 MO-64 YRS Influenza Virus 2023-01-06 Completed Universit y of Vaccine Quad IM, 00:00:00 [place] Me dical Preserv and ABX Branch Free 6 MO-64 YRS Influenza Virus 2023-01-06 Completed Universit y of Vaccine Quad IM, 00:00:00 [place] Me dical Preserv and ABX Branch Free 6 MO-64 YRS Influenza Virus 2023-01-06 Completed Universit y of Vaccine Quad IM, 00:00:00 [place] Me dical Preserv and ABX Branch Free 6 MO-64 YRS Influenza Virus 2023-01-06 Completed Universit y of Vaccine Quad IM, 00:00:00 [place] Me dical Preserv and ABX Branch Free 6 MO-64 YRS Influenza Virus 2023-01-06 Completed Universit y of Vaccine Quad IM, 00:00:00 [place] Me dical Preserv and ABX Branch Free 6 MO-64 YRS Influenza Virus 2023-01-06 Completed Universit y of Vaccine Quad IM, 00:00:00 [place] Me dical Preserv and ABX Branch Free 6 MO-64 YRS Influenza Virus 2023-01-06 Completed Universit y of Vaccine Quad IM, 00:00:00 [place] Me dical Preserv and ABX Branch Free 6 MO-64 YRS Influenza Virus 2023-01-06 Completed Universit y of Vaccine Quad IM, 00:00:00 [place] Me dical Preserv and ABX Branch Free 6 MO-64 YRS Influenza Virus 2023-01-06 Completed Universit y of Vaccine Quad IM, 00:00:00 [place] Me dical Preserv and ABX Branch Free 6 MO-64 YRS Influenza Virus 2023-01-06 Completed Universit y of Vaccine Quad IM, 00:00:00 [place] Me dical Preserv and ABX Branch Free 6 MO-64 YRS Influenza Virus 2023-01-06 Completed Universit y of Vaccine Quad IM, 00:00:00 [place] Me dical Preserv and ABX Branch Free 6 MO-64 YRS Influenza Virus 2023-01-06 Completed Universit y of Vaccine Quad IM, 00:00:00 [place] Me dical Preserv and ABX Branch Free 6 MO-64 YRS Influenza Virus 2023-01-06 Completed Universit y of Vaccine Quad IM, 00:00:00 [place] Me dical Preserv and ABX Branch Free 6 MO-64 YRS Influenza Virus 2023-01-06 Completed Universit y of Vaccine Quad IM, 00:00:00 [place] Me dical Preserv and ABX Branch Free 6 MO-64 YRS Influenza Virus 2023-01-06 Completed Universit y of Vaccine Quad IM, 00:00:00 [place] Me dical Preserv and ABX Branch Free 6 MO-64 YRS Influenza Virus 2023-01-06 Completed Universit y of Vaccine Quad IM, 00:00:00 [place] Me dical Preserv and ABX Branch Free 6 MO-64 YRS Influenza Virus 2023-01-06 Completed Universit y of Vaccine Quad IM, 00:00:00 [place] Me dical Preserv and ABX Branch Free 6 MO-64 YRS Influenza Virus 2023-01-06 Completed Universit y of Vaccine Quad IM, 00:00:00 [place] Me dical Preserv and ABX Branch Free 6 MO-64 YRS Influenza Virus 2023-01-06 Completed Universit y of Vaccine Quad IM, 00:00:00 [place] Me dical Preserv and ABX Branch Free 6 MO-64 YRS Influenza Virus 2023-01-06 Completed Universit y of Vaccine Quad IM, 00:00:00 [place] Me dical Preserv and ABX Branch Free 6 MO-64 YRS Influenza Virus 2023-01-06 Completed Universit y of Vaccine Quad IM, 00:00:00 [place] Me dical Preserv and ABX Branch Free 6 MO-64 YRS Influenza Virus 2023-01-06 Completed Universit y of Vaccine Quad IM, 00:00:00 [place] Me dical Preserv and ABX Branch Free 6 MO-64 YRS Influenza Virus 2023-01-06 Completed Universit y of Vaccine Quad IM, 00:00:00 [place] Me dical Preserv and ABX Branch Free 6 MO-64 YRS Influenza Virus 2023-01-06 Completed Universit y of Vaccine Quad IM, 00:00:00 [place] Me dical Preserv and ABX Branch Free 6 MO-64 YRS Influenza Virus 2023-01-06 Completed Universit y of Vaccine Quad IM, 00:00:00 [place] Me dical Preserv and ABX Branch Free 6 MO-64 YRS Influenza Virus 2023-01-06 Completed Universit y of Vaccine Quad IM, 00:00:00 [place] Me dical Preserv and ABX Branch Free 6 MO-64 YRS Influenza Virus 2023-01-06 Completed Universit y of Vaccine Quad IM, 00:00:00 [place] Me dical Preserv and ABX Branch Free 6 MO-64 YRS Influenza Virus 2023-01-06 Completed Universit y of Vaccine Quad IM, 00:00:00 [place] Me dical Preserv and ABX Branch Free 6 MO-64 YRS Influenza Virus 2023-01-06 Completed Universit y of Vaccine Quad IM, 00:00:00 [place] Me dical Preserv and ABX Branch Free 6 MO-64 YRS Influenza Virus 2023-01-06 Completed Universit y of Vaccine Quad IM, 00:00:00 [place] Me dical Preserv and ABX Branch Free 6 MO-64 YRS Influenza Virus 2023-01-06 Completed Universit y of Vaccine Quad IM, 00:00:00 [place] Me dical Preserv and ABX Branch Free 6 MO-64 YRS Influenza Virus 2023-01-06 Completed Universit y of Vaccine Quad IM, 00:00:00 [place] Me dical Preserv and ABX Branch Free 6 MO-64 YRS Vital Signs Vital Name Observation Time Observation Value Comments Source Systolic blood 2023-05-03 19:02:00 154 mm[Hg] Univer sity of [facility] Diastolic blood 2023-05-03 19:02:00 96 mm[Hg] Unive rsity of [facility] Heart rate 2023-05-03 19:01:00 87 /min [facility] Body temperature 2023-05-03 19:01:00 36.61 [facility] 2023-05-03 19:01:00 160 cm [facility] Body weight 2023-05-03 19:01:00 92.534 kg [facility] BMI 2023-05-03 19:01:00 36.14 kg/m2 [facility] Oxygen saturation in 2023-05-03 19:01:00 98 /min [facility] Arterial blood by [facility] [place] [facility] Pulse oximetry Branch Systolic blood 2023-04-19 18:52:00 155 mm[Hg] Univer sity of pressure [facility] Diastolic blood 2023-04-19 18:52:00 89 mm[Hg] Unive rsity of pressure [place] [facility] Heart rate 2023-04-19 18:41:00 87 /min Universi ty [facility] [place] [facility] Body temperature 2023-04-19 18:41:00 36.67 [facility] Univ ersity [facility] [place] [facility] Body height 2023-04-19 18:41:00 160 cm Universi ty of [place] [facility] Body weight 2023-04-19 18:41:00 93.486 kg Universi ty of [place] [facility] BMI 2023-04-19 18:41:00 36.51 kg/m2 Universi ty of [place] [facility] Oxygen saturation in 2023-04-19 18:41:00 98 /min University of Arterial blood by [place] [facility] Pulse oximetry Branch Systolic blood 2023-04-07 16:09:00 143 mm[Hg] Univer sity of pressure [place] [facility] Diastolic blood 2023-04-07 16:09:00 88 mm[Hg] Unive rsity of pressure [place] [facility] Heart rate 2023-04-07 16:08:00 90 /min Universi ty of [place] [facility] Body height 2023-04-07 16:08:00 160 cm Universi ty of [place] [facility] Body weight 2023-04-07 16:08:00 90.81 kg Universi ty of [place] [facility] BMI 2023-04-07 16:08:00 35.46 kg/m2 Universi ty of [place] [facility] Oxygen saturation in 2023-04-07 16:08:00 99 /min University of Arterial blood by [facility] kathy Pulse oximetry Branch Systolic blood 2023-03-27 16:05:00 127 mm[Hg] Univer sity of pressure [place] [facility] Diastolic blood 2023-03-27 16:05:00 77 mm[Hg] Unive rsity of pressure [place] [facility] Heart rate 2023-03-27 16:05:00 89 /min Universi ty of [place] [facility] Body height 2023-03-27 16:05:00 160 cm [facility]i ty [facility] [place] [facility] Body weight 2023-03-27 16:05:00 89.994 kg [facility]i ty [facility] [place] [facility] BMI 2023-03-27 16:05:00 35.14 kg/m2 [facility]i [facility] [place] [facility] Systolic blood 2023-01-06 18:03:00 145 mm[Hg] Univer sity of pressure [place] [facility] Diastolic blood 2023-01-06 18:03:00 80 mm[Hg] Unive rsity of pressure [facility] Heart rate 2023-01-06 18:02:00 94 /min Universi ty of [place] [facility] [place] Body temperature 2023-01-06 18:02:00 37 [facility] Body height 2023-01-06 18:02:00 152.4 cm Universi ty [facility] [place] [facility] [place] Body weight 2023-01-06 18:02:00 90.266 kg [facility]i ty [facility] [place] [facility] [place] BMI 2023-01-06 18:02:00 38.86 kg/m2 Universi ty of [facility] Oxygen saturation in 2023-01-06 18:02:00 100 /min University of Arterial blood by [facility] [place] [facility] Pulse oximetry Branch Systolic blood 2022-11-22 16:18:00 177 mm[Hg] Univer sity of [facility] Diastolic blood 2022-11-22 16:18:00 99 mm[Hg] Unive rsity of [facility] Heart rate 2022-11-22 16:17:00 90 /min [facility]i ty [facility] [place] [facility] [place] Body temperature 2022-11-22 16:17:00 36.56 [facility] Body height 2022-11-22 16:17:00 160 cm [facility]i ty [facility] [place] [facility] [place] Body weight 2022-11-22 16:17:00 90.266 kg [facility]i ty [facility] [place] [facility] [place] BMI 2022-11-22 16:17:00 35.25 kg/m2 Universi ty [facility] Medical [place] Oxygen saturation in 2022-11-22 16:17:00 100 /min University of Arterial blood by [facility] [place] [facility] Pulse oximetry Branch Procedures Procedure Date / Time Performed Performing Clinician Sourc e POCT URINALYSIS 2023-04-07 16:30:00 Reed Keating [facility] FLU VACC (), 2023-01-06 18:19:31 Reed Keating [facility] 6 MO-64 YRS, .5ML, IM, Medical [place] QUAD (FLUCELVAX) CBC WITH DIFF 2022-11-22 16:53:00 Reed Keating [facility] Encounters Start End Encounter Admission Attending Care Care Encounter Source Date/Time Date/Time Type Type Clinicians Facility Department ID 2023-06-19 2023-06-19 Outpatient R ZURI [facility] [id number] Univers 16:00:00 16:00:00 REED wagner [facility] 2023-06-02 2023-06-[address] [facility] [id number] Univers 00:00:00 00:00:00 Reed HEALTH [id number] it y of [place] [id number] [place] [id number] [place] [address] [facility] OFFICE [facility] 2023-05-03 2023-05-03 Library Aide Lab, Ang - Db [facility] [id number] Univers 14:15:00 14:30:00 Visit Reed Keating [id number] ity of [place] [id number] [place]A [id number] [place] [address]T [address] [facility] OFFICE [facility] 2023-05-03 2023-05-03 [facility] [id number] Univers 13:30:00 14:22:36 Visit Reed VANG [id number] it y of [place] [id number] [place]A [id number] [place] [address] [facility] OFFICE [facility] 2023-05-03 2023-05-03 Outpatient R ZURI [facility] [id number] Univers 13:30:00 14:22:36 REED wagner [facility] 2023-04-25 2023-04-[address] [facility] [id number] Univers 00:00:00 00:00:00 Reed HEALTH [id number] it y of [place] [id number] [place]A [id number] N[place] [address] OFFICE [facility] 2023-04-19 2023-04-19 Library Aide Lab, Ang - Db [facility] [id number] Univers 14:45:00 14:56:33 Visit Reed Keating [facility] [id number] ity of [place] [id number] [place]?BLEA [id number] N[place] [address] [facility] OFFICE [facility] 2023-04-19 2023-04-19 Outpatient R JOSEAl [facility] [id number] Univers 13:30:00 14:30:17 REED ity of [facility] 2023-04-19 2023-04-19 Office [facility] [id number] Univers 13:30:00 14:30:17 Visit Reed [facility] [id number] it y of [place] [id number] [place]A [id number] N[place] HURT [address] [place] [address] OFFICE [facility] 2023-04-19 2023-04-19 Telephone [facility] [id number] Univers 00:00:00 00:00:00 Reed HEALTH [id number] it y of [place] [id number] [place]?BLEA [id number] N[place] V[address] OFFICE [facility] 2023-04-13 2023-04-13 Refill [facility] [id number] Univers 00:00:00 00:00:00 Reed HEALTH [id number] it y of [place] [id number] [place]A [id number] N[place] [address] MEDICAL OFFICE [facility] 2023-04-11 2023-04-11 Refill [facility] [id number] Univers 00:00:00 00:00:00 Reed HEALTH [id number] it y of [place] [id number] [place]?BLEA [id number] [facility] [address] OFFICE [facility] 2023-04-10 2023-04-10 Telephone [facility] [id number] Univers 00:00:00 00:00:00 Reed HEALTH [id number] it y of [place] [id number] [place]?BLEA [id number] N[place] clem[place] [address] [place] MEDICAL OFFICE BUILDING 2023-04-07 2023-04-07 Outpatient R ZURI [facility] [id number] Univers 11:00:00 11:46:22 REED wagner of [facility] 2023-04-07 2023-04-07 Office Zuri [facility] [id number] [id number] [facility] 11:00:00 11:46:22 Visit Reed HEALTH 350.1.13.10 it y of [place] 4.2.7.2.686 Latrell as BRADFORD?BLEA [phone] Nv clemencia HURT [address] [facility] OFFICE [facility] 2023-04-07 2023-04-07 Telephone Yoon [facility] [id number] Univers 00:00:00 00:00:00 HEALTH 350.1.13.10 it y of [place] 4.2.7.2.686 Latrell as BRADFORD?BLEA [phone] Nv clemencia VILLALPANDO [address] MEDICAL OFFICE [facility] 2023-03-30 2023-03-30 Telephone Yoon [facility] [id number] Univers 00:00:00 00:00:00 HEALTH 350.1.13.10 it y of [place] 4.2.7.2.686 Latrell as BRADFORD?BLEA [phone] Nv clemencia VILLALPANDO [address] MEDICAL OFFICE [facility] 2023-03-29 2023-03-29 Telephone Yoon [facility] [id number] Univers 00:00:00 00:00:00 HEALTH 350.1.13.10 it y of [place] 4.2.7.2.686 Latrell as BRADFORD?BLEA [phone] Nv clemencia [facility] [address] MEDICAL OFFICE BUILDING 2023-03-28 2023-03-28 Telephone [facility] [id number] Univers 00:00:00 00:00:00 Reed HEALTH 350.1.13.10 it y of [place] 4.2.7.2.686 Latrell as BRADFORD?BLEA [phone] Nv clemencia [address]T [address] MEDICAL OFFICE [facility] 2023-03-27 2023-03-27 Office [address] Rojo [facility] 1.2.840.114 [id number] Univers 11:00:00 11:30:00 Visit HEALTH 350.1.13.10 it y of [place] 4.2.7.2.686 Latrell as BRADFORD?BLEA [id number] Nv clemencia HURT [address] [facility] OFFICE [facility] 2023-03-27 2023-03-27 Outpatient R YOON REYES [facility] [id number] Univers 11:00:00 11:00:00 YOONROSAURA [facility] 2023-03-23 2023-03-23 Telephone [facility] [id number] Univers 00:00:00 00:00:00 Reed HEALTH 350.1.13.10 it y of [place] 4.2.7.2.686 Latrell as BRADFORD?BLEA [phone] Nv clemencia HURT [address] [place] [address] OFFICE [facility] 2023-01-29 2023-01-29 Refill [facility] 1.2.840.114 [id number] Univers 00:00:00 00:00:00 Reed HEALTH 350.1.13.10 it y of [place] 4.2.7.2.686 Latrell as BRADFORD?BLEA [phone] Nv clemencia HURT [address] [place] [address] OFFICE [facility] 2023-01-20 2023-01-20 Outpatient R ZURI [facility] [id number] Univers 00:00:00 00:00:00 REED megan [facility] 2023-01-17 2023-01-17 Telephone [facility] 1..354.890 [id number] Univers 00:00:00 00:00:00 Reed HEALTH 350.1.13.10 it y of [place] 4.2.7.2.686 Latrell as BRADFORD?BLEA [phone] Nv clemencia HURT [address] [place] [address] OFFICE [facility] 2023-01-09 2023-01-09 Telephone [facility] [id number] Univers 00:00:00 00:00:00 Reed HEALTH 350.1.13.10 it y of [place] 4.2.7.2.686 Latrell as BRADFORD?BLEA [id number] Nv clemencia H[address]T [address] MEDICAL OFFICE BUILDING 2023-01-09 2023-01-09 Letter Clinic, [facility] 1.2.840.114 [id number] Univers 00:00:00 00:00:00 (Out) [facility] MULTISPEC 350.1.13.10 ity of End[place].2.[place] [id number] [facility] [place] [address] [facility] 2023-01-06 2023-01-06 Library Aide Lab, Ang - Db [facility] 1.2.840.1 14 [id number] Univers 12:15:00 12:30:00 Visit Reed Keating 350.1.13.10 ity of [place] 4.2.7.2.686 Latrell as BRADFORD?BLEA [id number] Nv clemencia VILLALPANDO [address] [facility] OFFICE [facility] 2023-01-06 2023-01-06 [facility] [id number] Univers 11:30:00 12:16:07 REED [facility] 2023-01-06 2023-01-06 Office [facility] 1.2.840.114 [id number] Univers 11:30:00 12:16:07 Visit Reed [facility] 350.1.13.10 it y of [place] 4.2.7.2.686 Latrell as BRADFORD?BLEA [phone] Nv clemencia HURT [address] [place] [address] OFFICE [facility] 2023-01-06 2023-01-06 Refill [facility] 1.2.840.114 [id number] Univers 00:00:00 00:00:00 Reed HEALTH 350.1.13.10 it y of [place] 4.2.7.2.686 Latrell as BRADFORD?BLEA [phone] Nv clemencia VILLAL[address] OFFICE [facility] 2023-01-03 2023-01-03 [facility] [id number] Univers 10:30:00 10:30:00 REED [facility] 2022-11-23 2022-11-[address] [facility] 1.2.812.645 [id number] Univers 00:00:00 00:00:00 Reed HEALTH 350.1.13.10 it y of [place] 4.2.7.2.686 Latrell as BRADFORD?BLEA [id number] Nv clemencia HURT [address] [place] [address] OFFICE [facility] 2022-11-23 2022-11-[address] [facility] 1.2.652.852 [id number] Univers 00:00:00 00:00:00 Reed HEALTH 350.1.13.10 it y of [place] 4.2.7.2.686 Latrell as BRADFORD?BLEA [id number] Nv clemencia HURT [address] [place] [address] OFFICE [facility] 2022-11-23 2022-11-23 Telephone [facility] 1.2.674.600 [id number] Univers 00:00:00 00:00:00 Reed HEALTH 350.1.13.10 it y of [place] 4.2.7.2.686 Latrell as BRADFORD?BLEA [id number] Nv clemencia HURT [address] [place] [address] OFFICE [facility] 2022-11-22 2022-11-22 Library Aide Lab, Ang - Db [facility] 1.2.840.1 14 [id number] Univers 10:45:00 11:00:00 Visit Reed Keating 350.1.13.10 ity of [place] 4.2.7.2.686 Latrell as BRADFORD?BLEA [id number] Nv clemencia HURT [address] [facility] OFFICE [facility] 2022-11-22 2022-11-22 Outpatient R ZURI [facility] [id number] Univers 10:00:00 10:44:55 REED ity of [facility] 2022-11-22 2022-11-[address] [facility] 1.2.840.114 [id number] Univers 10:00:00 10:44:55 Visit Reed VANG 350.1.13.10 it y of [place] 4.2.7.2.686 Latrell as BRADFORD?BLEA [phone] Nv clemencia HURT [address] [place] [address] OFFICE [facility] 2022-11-22 2022-11-[address] [facility] 1.2.459.780 [id number] Univers 00:00:00 00:00:00 Reed [employer] 350.1.13.10 it y of [place] 4.2.7.2.686 Latrell as BRADFORD?BLEA [phone] [address] MEDICAL OFFICE BUILDING Results Test Description Test Time Test Comments Results Result Comments Source POCT URINALYSIS W SPECIFIC GRAVITY 2023-04-07 16:40:00 Test Item Value Reference Range Interpretation Comme nts POCT U SP GRAV (test code = 3255) 1.010 mg/dl 1.005-1.025 POCT PH U (test code = 3254) 5 mg/dl 5-8 POCT U LEUK EST (test code = 3263) + Negative - Negative POCT U NIT (test code = 3262) Negative Negative - Negative POCT U PROT (test code = 3259) ++/100 Negative - Negative POCT U GLU (test code = 3256) 1000 Negative - Negative POCT U KETONE (test code = 3258) Negative Negative - Negative POCT U UROBILI (test code = 3260) Normal 0.2-1 POCT U BILI (test code = 3261) Negative Negative - Negative POCT U BLD (test code = 3257) 250 Negative - Negative POCT U COLOR (test code = 3266) Red POCT U APPEAR (test code = 3267) Turbid [facility]CIFIC [id number] 16:40:00 Test Item Value Reference Range Interpretation Comments POCT U SP GRAV (test code = 1.010 mg/dl 1.005-1.025 5) POCT PH U (test code = 3254) 5 mg/dl 5-8 POCT U LEUK EST (test code = + Negative - Negative 3) POCT U NIT (test code = 3262) Negative Negative - Negative POCT U PROT (test code = ++/100 Negative - Negative 3259) POCT U GLU (test code = 3256) 1000 Negative - Negative POCT U KETONE (test code = Negative Negative - Negative 3258) POCT U UROBILI (test code = Normal 0.2-1 3260) POCT U BILI (test code = Negative Negative - Negative 3261) POCT U BLD (test code = 3257) 250 Negative - Negative POCT U COLOR (test code = Red 3266) POCT U APPEAR (test code = Turbid 3267) [facility] SPECIFIC [id number] 16:40:00 Test Item Value Reference Range Interpretation Comments POCT U SP GRAV (test code = 1.010 mg/dl 1.005-1.025 3255) POCT PH U (test code = 3254) 5 mg/dl 5-8 POCT U LEUK EST (test code = + Negative - Negative 3263) POCT U NIT (test code = 3262) Negative Negative - Negative POCT U PROT (test code = ++/100 Negative - Negative 3259) POCT U GLU (test code = 3256) 1000 Negative - Negative POCT U KETONE (test code = Negative Negative - Negative 3258) POCT U UROBILI (test code = Normal 0.2-1 3260) POCT U BILI (test code = Negative Negative - Negative 3261) POCT U BLD (test code = 3257) 250 Negative - Negative POCT U COLOR (test code = Red 3266) POCT U APPEAR (test code = Turbid 3267) [facility] WITH [id number] 19:45:16 Test Item Value Reference Range Interpretation Comments WBC (test code = See_Comment [Automated 5990-2) message] The sy stem which generated this result transmitted reference range : 4.30 - 11.10 10*3/?L. The reference range was not used to interpret this result as normal/abnormal . RBC (test code = See_Comment [Automated 809-8) message] The sy stem which generated this result transmitted reference range : 3.93 - 5.25 10*6/?L. The reference range was not used to interpret this result as normal/abnormal . HGB (test code = 9.2 g/dL 11.6-15.0 L 718-7) HCT (test code = 30.6 % 35.7-45.2 L 4544-3) MCV (test code = 73.0 fL 80.6-95.5 L 787-2) MCH (test code = 22.0 pg 25.9-32.8 L 785-6) MCHC (test code = 30.1 g/dL 31.6-35.1 L 786-4) RDW-SD (test code = 41.3 fL 39.0-49.9 71558-5) RDW-CV (test code = 15.9 % 12.0-15.5 H 788-0) PLT (test code = See_Comment [Automated 777-3) message] The sy stem which generated this result transmitted reference range : 166 - 358 10*3/ ?L. The reference r diego was not used to interpret this result as normal/abnormal . MPV (test code = 11.9 fL 9.5-12.9 58216-2) NRBC/100 WBC (test See_Comment [Automat ed code = [id number]) message] The system which generated this result transmitted reference range : 0.0 - 10.0 /100 WBCs. The refer ence range was not u sed to interpret th is result as normal/abnormal . NRBC x10^3 (test code See_Comment [Auto mated = [id number]) message] The s ystem which generated this result transmitted reference range : 10*3/?L. The reference range was not used to interpret this result as normal/abnormal . GRAN MAT (NEUT) % 57.6 % (test code = 770-8) IMM GRAN % (test code 0.30 % = 6028034747) LYMPH % (test code = 31.0 % 736-9) MONO % (test code = 6.7 % 5905-5) EOS % (test code = 2.9 % 713-8) BASO % (test code = 1.5 % 706-2) GRAN MAT x10^3(ANC) 3.35 10*3/uL 1.88-7.09 (test code = 9653633673) IMM GRAN x10^3 (test 0.00-0.06 code = 8911048679) LYMPH x10^3 (test code 1.81 10*3/uL 1.32-3.29 = 731-0) MONO x10^3 (test code 0.39 10*3/uL 0.33-0.92 = 742-7) EOS x10^3 (test code = 0.17 10*3/uL 0.03-0.39 711-2) BASO x10^3 (test code 0.09 10*3/uL 0.01-0.07 H = 704-7) Lab Interpretation Abnormal (test code = 00599-8) [facility]
[2023-06-02 19:59] LABS: Absolute Lymphocytes (CBC) 2.3 K/uL (0.7-4.9); Hematocrit 33.9 % (36.0-45.0); Lymphocytes % 29.9 % (15.3-44.8); MCV 86.1 fL (80-100); MPV 8.9 fL (7.6-11.3); RBC Red Blood Cell Count 3.94 M/uL (3.86-4.86)
[2023-06-02 20:00] LABS: Protime INR 1.01
--- NOTE | 2023-06-02 20:03 | RAD REPORT ---
[facility]18 pm CLINICAL HISTORY: CHEST PAIN COMPARISON: Chest Single View dated 07/05/2018; Chest Single View dated 07/21/2016; CHEST PA AND LAT 2 VIEW dated 10/21/2010 TECHNIQUE: Portable AP view of the chest. FINDINGS: The lungs are clear. No pneumothorax or effusion. The cardiomediastinal contours are unre markable. IMPRESSION: No acute cardiopulmonary process.
[2023-06-02 20:30] LABS: ALT/SGPT 35 U/L (13-56); AST/SGOT 15 U/L (15-37); Albumin 3.2 g/dL (3.4-5.0); Alkaline Phosphatase 119 U/L (45-117); BUN Blood Urea Nitrogen 25 mg/dL (7-18); Bicarbonate 28 mEq/L (21-32); Bilirubin Total 0.2 mg/dL (0.2-1.0); Glomerular Filtration Rate 83 ml/min (=/>90); Glucose Level 76 mg/dL (74-106); NT PRO-BNP 262 pg/mL (<125); Potassium 3.6 mEq/L (3.5-5.1); Protein, Total 7.2 g/dL (6.4-8.2); Sodium Level 141 mEq/L (136-145); Troponin High Sensitivity 3.4 pg/mL (<58.9)
[2023-06-02 20:34] LABS: Bilirubin Direct < 0.1 mg/dL (0-0.2); Bilirubin Indirect, Calculated ND mg/dL (0.2-0.8)
[2023-06-02] MEDS ORDERED: NA CHLORIDE 0.9% 1,000 ML ONE (20:40)
[2023-06-02] MEDS ORDERED: AMLODIPINE 10 MG TAB ONE (20:40)
--- NOTE | 2023-06-02 21:33 | RAD REPORT ---
EXAM DESCRIPTION: CT - Head Brain Wo Cont - 06/02/2023 9:02 pm CLINICAL HISTORY: HEADACHE COMPARISON: Head Brain Wo Cont dated 07/05/2018; Head Brain Wo Cont dated 07/09/2016 TECHNIQUE: Noncontrast head CT images were obtained without IV contrast. Multiplanar reformats were generated and reviewed. All CT scans are performed using dose optimization technique as appropriate and may include automated exposure control or mA/KV adjustment according to patient size. FINDINGS: No intracranial hemorrhage, mass, or edema. 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 Mi dline structures are otherwise unremarkable. Normal ventricular caliber for age. Witt-white matter differentiation is preserved, without evidence of acute infarct. No abnormal extra- axial fluid collections. Mastoid air cells and visualized portions of the paranasal sinuses are clear. No acute bony findings. IMPRESSION: No evidence of an acute intracranial process. Able borderline tonsillar ectopia.
[2023-06-02] MEDS ORDERED: HYDRALAZINE HCL 20 MG/ML VIAL ONE (22:46)
[2023-06-02] MEDS ORDERED: KETOROLAC 30 MG/ML INJ ONE (23:40)
[2023-06-02] MEDS ORDERED: DIPHENHYDRAMINE 50 MG/ML VIAL ONE (23:40)
[2023-06-02] MEDS ORDERED: METOCLOPRAMIDE 10 MG/2mL INJ ONE (23:40)
--- NOTE | 2023-06-03 00:40 | ER ---
Nurse's Notes [facility] Name: Fabi Diana Age: 42 yrs Sex: Female : 1980 Arrival Date: 06/02/2023 Time: 18:12 Bed 10 Private MD: Diagnosis: Hypertensive heart disease without heart failure;Palpitations;Headache Presentation: 06/02 18:42 Chief complaint: Patient states: hypertension, MICHELE, and chest discomfort since 2300 last os night. Coronavirus screen: Vaccine status: Patient reports receiving the 1st dose of the Covid vaccine. At this time, the client does not indicate any symptoms associated with coronavirus-19. Ebola Screen: No symptoms or risks identified at this time. Initial Sepsis Screen: Does the patient meet any 2 criteria? No. Patient's initial sepsis screen is negative. Does the patient have a suspected source of infection? No. Patient's initial sepsis screen is negative. Risk Assessment: Do you want to hurt yourself or someone else? Patient reports no desire to harm self or others. Onset of symptoms was June 01, 2023. 18:42 Method Of Arrival: Ambulatory os 18:42 Acuity: BAYLEE 3 os Triage Assessment: 18:44 General: Appears in no apparent distress. Behavior is calm, cooperative, appropriate os for age. Pain: Complains of pain in face Pain currently is 8 out of 10 on a pain scale. Neuro: No deficits noted. Cardiovascular: No deficits noted. Respiratory: No deficits noted. 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 - Social history:: Smoking status: Patient denies any tobacco usage or history of. Screenin/07 22:07 [facility] ED Fall Risk Assessment (Adult) History of falling in the last 3 months, cm10 including since admission No falls in past 3 months (0 pts) Confusion or Disorientation No (0 pts) Intoxicated or Sedated No (0 pts) Impaired Gait No (0 pts) Mobility Assist Device Used No (0 pt) Altered Elimination No (0 pt) Score/Fall Risk Level 0 - 2 = Low Risk Oriented to surroundings, Maintained a safe environment, Hourly rounding (assess needs \T\ fall precautionary measures) done. Abuse screen: Denies threats or abuse. Denies injuries from another. Nutritional screening: No deficits noted. Tuberculosis screening: No symptoms or risk factors identified. Assessment: 22:06 General: Appears in no apparent distress. Behavior is calm, cooperative. Neuro: No cm10 deficits noted. Level of Consciousness is awake, alert, obeys commands, Oriented to person, place, time, situation, Reports headache occipital area. Cardiovascular: No deficits noted. Respiratory: No deficits noted. Airway is patent Respiratory effort is even, unlabored, Respiratory pattern is regular, symmetrical. Derm: No deficits noted. Skin is intact, Skin is pink, warm \T\ dry. 22:08 Reassessment: No changes from previously documented assessment. Patient and/or family cm10 updated on plan of care and expected duration. Pain level reassessed. Patient is alert, oriented x 3, equal unlabored respirations, skin warm/dry/pink. Patient states feeling better. Patient states symptoms have improved. Vital Signs: 18:42 BP 167 / 87; Pulse 88; Resp 18; Temp 98.3; Pulse Ox 100% ; Weight 92.53 kg; os 21:54 BP 180 / 96; Pulse 84; Resp 16; Pulse Ox 99% on R/A; Pain 4/10; cm10 22:23 BP 174 / 84; Pulse 86; Resp 16; Pulse Ox 100% on R/A; cm10 23:28 BP 174 / 90; Pulse 86; Resp 16; Pulse Ox 99% ; cm10 07/08 00:31 BP 184 / 96; Pulse 85; Resp 16; Pulse Ox 99% on R/A; cm10 00:55 BP 175 / 96; Pulse 84; Resp 16; Pulse Ox 100% ; Pain 0/10; cm10 21:54 Pain Scale: Adult cm10 00:55 Pain Scale: Adult cm10 ED Course: 06/02 18:16 Patient arrived in ED. am2 18:19 Lazarus Samaniego PA is PHCP. cp 18:19 Julien Stafford MD is Attending Physician. cp 18:44 Triage completed. os 19:20 XRAY Chest (1 view) In Process Unspecified. EDMS 19:41 Susana Killian, JEAN PAUL is Primary Nurse. cm10 19:49 Initial lab(s) drawn, by me, sent to lab. EKG done, by ED staff, reviewed by Lazarus JUAREZ. Inserted saline lock: 20 gauge in right antecubital area, using aseptic technique. Blood collected. 19:50 Basic Metabolic Panel Sent. jw7 19:50 CBC with Diff Sent. jw7 19:50 LFT's Sent. jw7 19:50 Magnesium Sent. jw7 19:50 NT PRO-BNP Sent. jw7 19:50 PT-INR Sent. jw7 19:50 Troponin HS Sent. jw7 20:46 Diet: Patient given snack. cm10 21:03 CT Head Brain wo Cont In Process Unspecified. EDMS 22:08 Patient has correct armband on for positive identification. Bed in low position. Call cm10 light in reach. 23:53 Repeat lab(s) drawn. by me, sent to lab. jw7 06/03 00:38 Doc Paige MD is Referral Physician. cp 00:56 No provider procedures requiring assistance completed. IV discontinued, intact, cm10 bleeding controlled, No redness/swelling at site. Pressure dressing applied. 00:57 Arm band placed on. cm10 Administered Medications: 06/02 20:36 Drug: amLODIPine PO 10 mg {Note: BP 188/93.} Route: PO; cm10 22:20 Follow up: Response: No adverse reaction cm10 20:36 Drug: NS 0.9% IV 500 ml Route: IV; Rate: bolus; Site: right antecubital; cm10 23:40 Follow up: IV Status: Completed infusion; IV Intake: 500ml cm10 23:40 Follow up: Response: No adverse reaction cm10 20:46 Drug: NS 0.9% IV 500 ml Route: IV; Rate: 125 ml/hr; Site: right antecubital; cm10 22:41 Drug: hydrALAZINE IVP 10 mg Route: IVP; Site: right antecubital; cm10 23:27 Follow up: Response: No adverse reaction; Blood pressure is unchanged cm10 23:39 Drug: diphenhydrAMINE IVP 25 mg Route: IVP; Site: right antecubital; cm10 06/03 00:31 Follow up: Response: No adverse reaction cm10 06/02 23:39 Drug: Ketorolac IVP 15 mg Route: IVP; Site: right antecubital; cm10 06/03 00:31 Follow up: Response: No adverse reaction; Pain is decreased cm10 06/02 23:40 Drug: metoCLOPramide IVP 10 mg Route: IVP; Site: right antecubital; cm10 06/03 00:31 Follow up: Response: No adverse reaction cm10 00:55 Not Given (Physician Discretion): hydrALAZINE IVP 10 mg IVP once cm10 Medication: 00:56 VIS not applicable for this client. cm10 Intake: 06/02 23:40 IV: 500ml; Total: 500ml. cm10 Outcome: 06/03 00:39 Discharge ordered by MD. cp 00:56 Discharged to home ambulatory, with family. cm10 00:56 Condition: good 00:56 Discharge instructions given to patient, Instructed on discharge instructions, follow up and referral plans. medication usage, Demonstrated understanding of instructions, follow-up care, medications, Prescriptions given X 1. 00:57 Patient left the ED. cm10 Signatures: Dispatcher [employer] EDMS Lazarus Samaniego PA PA cp Moreno, Amanda am2 Meliza Faith7 Isreal Kearney RN RN os Susana Killian RN RN cm10 Corrections: (The following items were deleted from the chart) 06/02 18:44 18:44 PMHx: Diabetes - NIDDM; os os 18:44 18:44 PMHx: Hypertension; os os 18:44 18:44 PMHx: neuropathy; os os 18:44 18:44 PSHx: tubal ligation; os os 18:44 18:44 PSHx: Cholecystectomy; os os
--- NOTE | 2023-06-03 00:40 | EDPHYS ---
Physician Documentation [facility] Name: Fabi Diana Age: 42 yrs Sex: Female : 1980 Arrival Date: 06/02/2023 Time: 18:12 Bed 10 Private MD: ED Physician Julien Stafford HPI: 06/02 18:55 This 42 yrs old Female presents to ER via Ambulatory with complaints of High cp Blood Pressure. 18:55 The patient has elevated blood pressure and discovered this at home, with a home device.cp 18:55 Onset: The symptoms/episode began/occurred last night. Associated signs and symptoms: cp Pertinent positives: chest pain, headache, Pertinent negatives: visual changes, vomiting, weakness. 18:55 Severity of symptoms: in the emergency department the blood pressure is improved, 167 cp mm Hg. 18:55 Patient is a 42-year-old female with a past medical history significant for cp hypertension, DM who presents to the emergency department with complaints of elevated blood pressure, some chest pain and headache that started last night. Patient reports she checked her blood pressure at home and noticed it was elevated. 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 - Social history:: Smoking status: Patient denies any tobacco usage or history of. ROS: 06/02 19:00 Eyes: Negative for injury, pain, redness, and discharge. cp Constitutional: Negative for body aches, chills, fever, poor PO intake. ENT: Negative for drainage from ear(s), ear pain, sore throat, difficulty swallowing, difficulty handling secretions. Cardiovascular: Positive for chest pain, Negative for edema, palpitations. Respiratory: Negative for cough, shortness of breath, wheezing. Abdomen/GI: Negative for abdominal pain, vomiting, diarrhea, constipation. : Negative for urinary symptoms. Neuro: Positive for headache, Negative for altered mental status, dizziness, syncope, weakness. All other systems are negative. Exam: 19:05 Constitutional: The patient appears in no acute distress, alert, awake, cp non-diaphoretic, non-toxic, well developed, well nourished, obese. 19:05 Head/Face: Normocephalic, atraumatic. cp 19:05 Eyes: Periorbital structures: appear normal, Conjunctiva: normal, no exudate, no injection, Sclera: no appreciated abnormality, Lids and lashes: appear normal, bilaterally. 19:05 ENT: External ear(s): are unremarkable, Nose: is normal, Mouth: Lips: moist, Oral mucosa: pink and intact, moist, Posterior pharynx: is normal, airway is patent, no erythema, no exudate. 19:05 Neck: ROM/movement: is normal, is supple, without pain, no range of motions limitations, no meningismus, no nuchal rigidity. 19:05 Chest/axilla: Inspection: normal. 19:05 Cardiovascular: Rate: normal, Rhythm: regular, Edema: is not appreciated, JVD: is not appreciated. 19:05 Respiratory: the patient does not display signs of respiratory distress, Respirations: normal, no use of accessory muscles, no retractions, labored breathing, is not present, Breath sounds: are clear throughout, no decreased breath sounds, no stridor, no wheezing. 19:05 Abdomen/GI: Inspection: abdomen appears normal, Palpation: abdomen is soft and non-tender, in all quadrants. 19:05 Back: pain, is absent, ROM is normal. 19:05 Neuro: Orientation: to person, place \T\ time. Mentation: is normal, Cerebellar function: is grossly normal, Motor: moves all fours, strength is normal, Sensation: is normal. 19:44 ECG was reviewed by the Attending Physician. cp Vital Signs: 18:42 BP 167 / 87; Pulse 88; Resp 18; Temp 98.3; Pulse Ox 100% ; Weight 92.53 kg; os 21:54 BP 180 / 96; Pulse 84; Resp 16; Pulse Ox 99% on R/A; Pain 4/10; cm10 22:23 BP 174 / 84; Pulse 86; Resp 16; Pulse Ox 100% on R/A; cm10 23:28 BP 174 / 90; Pulse 86; Resp 16; Pulse Ox 99% ; cm10 07/08 00:31 BP 184 / 96; Pulse 85; Resp 16; Pulse Ox 99% on R/A; cm10 00:55 BP 175 / 96; Pulse 84; Resp 16; Pulse Ox 100% ; Pain 0/10; cm10 21:54 Pain Scale: Adult cm10 00:55 Pain Scale: Adult cm10 MDM: 06/02 18:46 Patient medically screened. 06/03 00:39 Data reviewed: vital signs, nurses notes, lab test result(s), EKG, radiologic studies, cp CT scan, plain films. 00:39 Differential diagnosis: hypertensive crisis, Malignant HTN, CVA, intracerebral cp hemorrhage, acute [place]. Consideration of Admission/Observation Escalation of care including admission/observation considered. I considered the following discharge prescriptions or medication management in the emergency department Medications were administered in the Emergency Department. See MAR. Care significantly affected by the following chronic conditions: Diabetes, Hypertension, Obesity. 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 Response to treatment: the patient's symptoms have mildly improved after treatment, and as a result, I will discharge patient. Special discussion: Based on the patient's history, exam, and Dx evaluation, there is no indication for emergent intervention or inpatient Tx. It is understood by the patient/guardian that if the Sx's persist or worsen they need to return immediately for re-evaluation. 06/02 18:46 Order name: Basic Metabolic Panel; Complete Time: 20:57 06/02 20:57 Interpretation: Normal except: CL 110; BUN 25; GFR 83. 06/02 18:46 Order name: CBC with Diff; Complete Time: 20:57 06/02 20:58 Interpretation: Normal except: HGB 11.5; HCT 33.9; RDW 16.7. 06/02 18:46 Order name: LFT's; Complete Time: 20:57 06/02 20:58 Interpretation: Normal except: ALK 119; ALB 3.2; GLOB 4.0; A/G 0.8. 06/02 18:46 Order name: Magnesium; Complete Time: 20:57 06/02 18:46 Order name: NT PRO-BNP; Complete Time: 20:57 cp 06/02 20:58 Interpretation: Abnormal: NT PRO-BNP 262. cp 06/02 18:46 Order name: PT-INR; Complete Time: 20:57 cp 06/02 18:46 Order name: Troponin HS; Complete Time: 20:57 cp 06/02 20:52 Order name: Glucose, Ancillary Testing; Complete Time: 20:57 EDMS 06/02 20:59 Interpretation: Reviewed. cp 06/02 23:19 Order name: Troponin HS; Complete Time: 00:38 cp 06/02 18:46 Order name: XRAY Chest (1 view); Complete Time: 20:57 cp 06/02 20:21 Order name: CT Head Brain wo Cont; Complete Time: 22:12 cp 06/02 18:46 Order name: EKG; Complete Time: 18:47 cp 06/02 18:46 Order name: Cardiac monitoring; Complete Time: 19:49 cp 06/02 18:46 Order name: EKG - Nurse/Tech; Complete Time: 19:49 cp 06/02 18:46 Order name: IV Saline Lock; Complete Time: 19:49 cp 06/02 18:46 Order name: Labs collected and sent; Complete Time: 19:49 cp 06/02 18:46 Order name: O2 Per Protocol; Complete Time: 19:49 cp 06/02 18:46 Order name: O2 Sat Monitoring; Complete Time: 19:50 cp EC/07 19:44 Rate is 78 beats/min. Rhythm is regular. PA interval is normal. QRS interval is normal. cp QT interval is normal. T waves are Inverted in leads III, aVR. Interpreted by me. Reviewed by me. Administered Medications: 20:36 Drug: amLODIPine PO 10 mg {Note: BP 188/93.} Route: PO; cm10 22:20 Follow up: Response: No adverse reaction cm10 20:36 Drug: NS 0.9% IV 500 ml Route: IV; Rate: bolus; Site: right antecubital; cm10 23:40 Follow up: IV Status: Completed infusion; IV Intake: 500ml cm10 23:40 Follow up: Response: No adverse reaction cm10 20:46 Drug: NS 0.9% IV 500 ml Route: IV; Rate: 125 ml/hr; Site: right antecubital; cm10 22:41 Drug: hydrALAZINE IVP 10 mg Route: IVP; Site: right antecubital; cm10 23:27 Follow up: Response: No adverse reaction; Blood pressure is unchanged cm10 23:39 Drug: diphenhydrAMINE IVP 25 mg Route: IVP; Site: right antecubital; cm10 06/03 00:31 Follow up: Response: No adverse reaction cm10 06/02 23:39 Drug: Ketorolac IVP 15 mg Route: IVP; Site: right antecubital; cm10 06/03 00:31 Follow up: Response: No adverse reaction; Pain is decreased cm10 06/02 23:40 Drug: metoCLOPramide IVP 10 mg Route: IVP; Site: right antecubital; cm10 06/03 00:31 Follow up: Response: No adverse reaction cm10 00:55 Not Given (Physician Discretion): hydrALAZINE IVP 10 mg IVP once cm10 Disposition Summary: 06/03/23 00:39 Discharge Ordered Location: Home cp Problem: new cp Symptoms: have improved cp Condition: Stable cp Diagnosis - Hypertensive heart disease without heart failure cp - Palpitations cp - Headache cp Followup: cp - With: Doc Paige MD - When: 2 - 3 days - Reason: Recheck today's complaints Discharge Instructions: - Discharge Summary Sheet cp - General Headache Without Cause cp - Hypertension, Adult cp - Palpitations cp - Aspirin and Your Heart cp - Form - Blood Pressure Record Sheet cp - Ambulatory Cardiac Monitoring cp - How to Take Your Blood Pressure cp Forms: - Medication Reconciliation Form cp - Thank You Letter cp - Antibiotic Education cp - Prescription Opioid Use cp - [email or web address] cp Prescriptions: - Norvasc 5 mg Oral Tablet - take 1 tablet by ORAL route once daily; 20 tablet; Refills: 0, Product cp Selection Permitted Addendum: 06/05/2023 10:47 Co-signature as Attending Physician, Julien Stafford MD I reviewed the patient's care r n provided by the Advanced Practice Provider and agree with the diagnosis and treatment plan. Signatures: Dispatcher [employer] Julien Ortiz MD MD rn Page, Corey, PA PA cp Isreal Kearney RN RN os Susana Killian RN RN cm10 Corrections: (The following items were deleted from the chart) 06/02 18:44 18:44 PMHx: Diabetes - NIDDM; os os 18:44 18:44 PMHx: Hypertension; os os 18:44 18:44 PMHx: neuropathy; os os 18:44 18:44 PSHx: tubal ligation; os os 18:44 18:44 PSHx: Cholecystectomy; os os 20:58 20:58 Normal except: ALK 119. [facility] 06/03 03:46 03:45 ECG was reviewed by the Attending Physician. [facility] 03:46 03:45 Rate is 78 beats/min. Rhythm is regular. PA interval is normal. QRS interval is cp normal. QT interval is normal. T waves are Inverted in leads III, aVR. Interpreted by me. Reviewed by me. 06/04 00:15 06/02 18:55 Patient is a 42-year-old female with a past medical history significant for cp hypertension who presents to the emergency department with complaints of elevated blood pressure, some chest pain and headache that started last night. Patient reports she checked her blood pressure at home and noticed it was elevated. 06/04 00:06/03 19:00 Constitutional: Negative for body aches, chills, fever, poor PO intake, cp 06/04 00:06/03 19:00 Cardiovascular: Positive for chest pain, Negative for edema, palpitations, cp 06/04 00:06/03 19:00 Respiratory: Negative for cough, shortness of breath, wheezing, cp cp 06/04 00:06/03 19:00 Abdomen/GI: Negative for abdominal pain, vomiting, diarrhea, constipation, cp 06/04 00:06/03 19:00 Neuro: Positive for headache, Negative for altered mental status, cp dizziness, syncope, weakness, cp 06/04 00:06/03 19:00 : Negative for urinary symptoms, cp cp 06/04 00:06/03 19:00 Eyes: Negative for injury, pain, redness, and discharge, cp 06/04 00:06/03 19:00 ENT: Negative for drainage from ear(s), ear pain, sore throat, difficulty cp swallowing, difficulty handling secretions, cp 06/04 00:06/03 19:00 All other systems are negative, [facility]
[2023-06-03] MEDS ORDERED: HYDRALAZINE HCL 20 MG/ML VIAL ONE (00:42)
[2023-06-03 02:00] VITALS: TEMP 98.3
[2023-06-03 02:09] VITALS: BP 175/96; O2SAT 100
--- NOTE | 2023-06-03 16:17 | EKG ---
Test Date: 2023-06-02 Test Time: 19:36:54 New Vehicle Sales Consultant: CRISSY MEASUREMENT RESULTS: Intervals: Rate: 78 TX: 148 QRSD: 90 QT: 382 QTc: 435 Everly: P: 20 TX: 148 QRS: 47 T: 5 INTERPRETIVE STATEMENTS: Normal sinus rhythm Normal ECG Compared to ECG 07/05/2018 16:49:47 No significant changes Electronically Signed On 06-03-23 16:16:27 CDT by Doc Paige
== END 2023-06-03 00:57 | disposition home or self-care (01) ==
LOC: ER 18:12
DX: I11.9 Hypertensive heart disease without heart failure (principal); I10 Essential (primary) hypertension; E11.9 Type 2 diabetes mellitus without complications; R07.9 Chest pain, unspecified; R51.9 Headache, unspecified; R00.2 Palpitations
CPT/HCPCS: 96361; 93005; 85025; 80048; 36415; 83735; 85610; 82947; 80076; 84484 ×2; 83880; 70450; 71045; 96375; 96374; 99285; J0360; J2765; J1200; J7040